=== PATIENT | female | born 1975 | race Caucasian/White ===

== ENCOUNTER → 2020-09-10 14:12 | Outpatient (BNVA) | payer OTHER, SELFPAY | PROVIDERS: PCP Internal Medicine; Visit Provider Surgery | DX: L73.9 Follicular disorder, unspecified (principal); Z91.89 Other specified personal risk factors, not elsewhere classified | CPT/HCPCS: 99202 ==

== ENCOUNTER → 2020-09-16 14:21 | Outpatient (BNVA) | payer OTHER, SELFPAY | PROVIDERS: PCP Internal Medicine; Visit Provider Surgery | DX: L73.9 Follicular disorder, unspecified (principal); Z91.89 Other specified personal risk factors, not elsewhere classified | CPT/HCPCS: 99212 ==

== ENCOUNTER → 2020-10-27 13:20 | Outpatient (BNVA) | payer OTHER, SELFPAY | PROVIDERS: PCP Internal Medicine; Referring Provider Internal Medicine; Visit Provider Surgery | DX: Z91.89 Other specified personal risk factors, not elsewhere classified (principal) | CPT/HCPCS: 99212 ==

== ENCOUNTER 2020-11-09 14:23 | Outpatient (REF) | payer OTHER, SELFPAY ==
[2020-11-09 16:56] LABS: MANUAL DIFF FLAG NO
[2020-11-09 17:02] LABS: Basophils Absolute Auto 0.1 X10*3/uL (0.0-0.2); Basophils Percent Auto 0.6 % (0-2); Eosinophils Absolute Auto 0.2 X10*3/uL (0.0-0.4); Eosinophils Percent Auto 1.9 % (0-4); Hematocrit 43.3 % (37-47); Hemoglobin 14.4 g/dl (12.0-16.0); Imm Gran Abs Auto 0.05 X10*3/uL (0.00-0.03); Imm Gran Pct Auto 0.5 % (0.0-0.4); Lymphocytes Absolute Auto 2.8 X10*3/uL (1.2-4.9); Mean Corpuscular HGB Conc 33.3 g/dl (31.0-35.0); Mean Corpuscular Hemoglobin 29.5 pg (27.0-33.0); Mean Corpuscular Volume 88.7 fL (80-98); Mean Platelet Volume 8.9 fL (9.4-12.3); Monocytes Absolute Auto 0.5 X10*3/uL (0.1-1.2); Monocytes Percent Auto 5.5 % (2-11); Neutrophils Percent Auto 62.5 % (45-73); Platelet Count 340 X10*3/uL (160-400); Red Blood Count 4.88 X10*6/uL (4.20-5.50); Red Cell Distribution Width 13.2 % (11.0-16.0); White Blood Count 9.6 X10*3/uL (4.8-10.8)
[2020-11-09 17:07] LABS: Creatinine Urine 26.02 mg/dL; Microalbum/Creatinine Ratio Ur 65.3 ug/mg cr
[2020-11-09 17:14] LABS: Estimated Average Glucose 226 mg/dL; Hemoglobin A1c % 9.5 %
[2020-11-09 17:18] LABS: Alanine Aminotransferase 13 U/L (0-31); Albumin Level 4.1 g/dL (3.5-5.0); Alkaline Phosphatase 83 U/L (39-117); Anion Gap 12 (12-20); Aspartate Amino Transferase 17 U/L (5-31); Bilirubin Total 0.7 mg/dL (0.0-1.0); Blood Urea Nitrogen 6 mg/dL (9-16); Calcium 9.4 mg/dL (8.4-10.2); Carbon Dioxide 25 mmol/L (22-29); Chloride 105 mmol/L (96-108); Cholesterol 199 mg/dL; Estimated Glomerular Filt Rate > 60; Glucose Random 126 mg/dL (60-115); HDL Cholesterol 31 mg/dL; LDL Cholesterol Calculated 128 mg/dl; Potassium 4.4 mmol/L (3.3-5.1); Sodium 138 mmol/L (135-145); Total Protein 7.4 g/dL (6.5-8.0); Triglycerides 202 mg/dL
[2020-11-09 17:42] LABS: Free T4 (Free Thyroxine) 0.91 ng/dL (0.71-1.85); Thyroid Stimulating Hormone 0.86 uIU/mL (0.32-4.0); Vitamin D 25-OH Total 14.2 ng/mL (>30)
[2020-11-09 17:43] LABS: Folate 10.6 ng/mL (> or = 4.0); Vitamin B12 206 pg/mL (200-900)
[2020-11-10 02:42] LABS: CT PCR NOT DETECTED (Not Detect.); NG PCR NOT DETECTED (Not Detect.)
[2020-11-10 08:31] LABS: BV Int Neg Control Negative (Negative); BV Int Pos Control Positive (Positive)
== END 2020-11-09 14:24 | disposition home or self-care (01) ==
LOC: HO.LAB 14:23
PROVIDERS: Absent Provider Surgery; PCP Internal Medicine; Visit Provider Advanced Practice Midwife
DX: Z01.419 Encounter for gynecological examination (general) (routine) without abnormal findings (principal); Z11.3 Encounter for screening for infections with a predominantly sexual mode of transmission; R10.2 Pelvic and perineal pain; L73.2 Hidradenitis suppurativa; E11.65 Type 2 diabetes mellitus with hyperglycemia; I10 Essential (primary) hypertension; E78.00 Pure hypercholesterolemia, unspecified; N64.4 Mastodynia; G89.29 Other chronic pain
CPT/HCPCS: 36415; 80053; 80061; 82043; 82306; 82607; 82746; 83036; 84439; 84443; 85025; 87071; 87205; 87480; 87491; 87510; 87591; 87660

== ENCOUNTER 2020-11-18 15:03 | Outpatient (REF) | payer OTHER, SELFPAY | END 2020-11-18 15:04 | disposition home or self-care (01) | LOC: HO.MRI 15:03 | PROVIDERS: PCP Internal Medicine; Visit Provider Surgery | DX: Z13.89 Encounter for screening for other disorder (principal) ==

== ENCOUNTER 2021-08-25 13:56 | Outpatient (REF) | payer OTHER, SELFPAY ==
--- NOTE | ~2021-08-25 | MM_ITS ---
EXAMINATION: MM SCREENING DIGITAL BREAST TOMOSYNTHESIS, BILATERAL CLINICAL INFORMATION: Screening. Asymptomatic. The lifetime risk of breast cancer based on the Tyrer-Cuzick Model is 21.5%. Additional annual screening with breast MRI may be of benefit in women with a score of 20% or greater. COMPARISON: Mammography: None TECHNIQUE: Digital breast tomosynthesis is performed in both the craniocaudal and mediolateral oblique views along with computer-aided detection (CAD). Synthesized 2D images are generated from the tomosynthesis. FINDINGS: The breasts are almost entirely fatty (ACR BI-RADS breast composition Category a). There are no significant masses, abnormal calcifications, or other abnormalities. A few intramammary lymph nodes are seen within the left breast. MM/MM tomosynthesis screening BI IMPRESSION: No mammographic evidence of malignancy. ASSESSMENT: BI-RADS 1: Negative RECOMMENDATION: Routine annual mammography screening. This patient's information was entered into a reminder system with a target due date for their next mammogram.
== END 2021-08-25 13:57 | disposition home or self-care (01) ==
LOC: HO.MAMMO 13:56
PROVIDERS: PCP Internal Medicine; Visit Provider Internal Medicine
DX: Z12.31 Encounter for screening mammogram for malignant neoplasm of breast (principal)
CPT/HCPCS: 77063; 77067

== ENCOUNTER 2021-12-30 13:56 | Outpatient (REF) | payer OTHER, SELFPAY ==
[2021-12-30 16:42] LABS: MANUAL DIFF FLAG NO
[2021-12-30 16:45] LABS: Basophils Percent Auto 0.4 % (0-2); Eosinophils Absolute Auto 0.1 X10*3/uL (0.0-0.4); Eosinophils Percent Auto 1.3 % (0-4); Hematocrit 42.6 % (37.0-47.0); Hemoglobin 14.2 g/dl (12.0-16.0); Imm Gran Abs Auto 0.05 X10*3/uL (0.00-0.03); Imm Gran Pct Auto 0.5 % (0.0-0.4); Lymphocytes Absolute Auto 2.8 X10*3/uL (1.2-4.9); Lymphocytes Percent Auto 28.9 % (20-40); Mean Corpuscular HGB Conc 33.3 g/dl (31.0-35.0); Mean Corpuscular Hemoglobin 29.2 pg (27.0-33.0); Mean Corpuscular Volume 87.5 fL (80.0-98.0); Mean Platelet Volume 8.6 fL (9.4-12.3); Monocytes Absolute Auto 0.4 X10*3/uL (0.1-1.2); Monocytes Percent Auto 3.8 % (2-11); Neutrophils Absolute Auto 6.4 x10*3/uL (2.0-8.3); Neutrophils Percent Auto 65.1 % (45-73); Platelet Count 338 X10*3/uL (160-400); Red Blood Count 4.87 X10*6/uL (4.20-5.50); Red Cell Distribution Width 13.1 % (11.0-16.0); White Blood Count 9.8 X10*3/uL (4.8-10.8)
[2021-12-30 17:12] LABS: Estimated Average Glucose 134 mg/dL; Hemoglobin A1c % 6.3 %
[2021-12-30 17:15] LABS: Creatinine Urine 16.58 mg/dL; Microalbumin Urine < 5.0 mg/L
[2021-12-30 17:17] LABS: Alanine Aminotransferase 14 U/L (0-31); Albumin Level 4.3 g/dL (3.5-5.0); Alkaline Phosphatase 67 U/L (39-117); Anion Gap 12 (12-20); Aspartate Amino Transferase 13 U/L (5-31); Bilirubin Total 0.4 mg/dL (0.0-1.0); Blood Urea Nitrogen 8 mg/dL (9-16); Calcium 9.6 mg/dL (8.4-10.2); Carbon Dioxide 26 mmol/L (22-29); Chloride 100 mmol/L (96-108); Cholesterol 219 mg/dL; Estimated Glomerular Filt Rate > 60; Glucose Random 138 mg/dL (60-115); HDL Cholesterol 33 mg/dL; LDL Cholesterol Calculated 145 mg/dl; Potassium 4.4 mmol/L (3.3-5.1); Sodium 134 mmol/L (135-145); Total Protein 7.8 g/dL (6.5-8.0); Triglycerides 206 mg/dL
[2021-12-30 17:37] LABS: Free T4 (Free Thyroxine) 0.92 ng/dL (0.71-1.85); Thyroid Stimulating Hormone 1.01 uIU/mL (0.32-4.0); Vitamin D 25-OH Total 36.9 ng/mL (>30)
[2021-12-30 17:49] LABS: Folate 4.5 ng/mL (> or = 4.0); Vitamin B12 594 pg/mL (200-900)
== END 2021-12-30 13:57 | disposition home or self-care (01) ==
LOC: HO.HMGCLDS 13:56
PROVIDERS: PCP Internal Medicine; Visit Provider Internal Medicine
DX: E11.65 Type 2 diabetes mellitus with hyperglycemia (principal); E78.00 Pure hypercholesterolemia, unspecified; I10 Essential (primary) hypertension
CPT/HCPCS: 36415; 80053; 80061; 82043; 82306; 82607; 82746; 83036; 84439; 84443; 85025

== ENCOUNTER 2022-02-01 16:17 | Outpatient (REF) | payer OTHER, SELFPAY ==
[2022-02-02 08:36] LABS: BV Int Neg Control Negative (Negative); BV Int Pos Control Positive (Positive)
[2022-02-04 22:37] LABS: HPV mRNA E6/E7 rflx Not Detected (Not Detected)
== END 2022-02-01 16:18 | disposition home or self-care (01) ==
LOC: HO.LAB 16:17
PROVIDERS: Visit Provider Advanced Practice Midwife
DX: Z01.419 Encounter for gynecological examination (general) (routine) without abnormal findings (principal); N76.0 Acute vaginitis; R10.2 Pelvic and perineal pain; E28.2 Polycystic ovarian syndrome; R10.819 Abdominal tenderness, unspecified site
CPT/HCPCS: 81003; 87480; 87510; 87624; 87660; 88142

== ENCOUNTER 2022-06-15 14:49 | Outpatient (REF) | payer OTHER, SELFPAY ==
[2022-06-16 09:21] LABS: BV Int Neg Control Negative (Negative)
[2022-06-16 09:22] LABS: BV Int Pos Control Positive (Positive)
== END 2022-06-15 14:50 | disposition home or self-care (01) ==
LOC: HO.LNP 14:49
PROVIDERS: PCP Internal Medicine; Visit Provider Advanced Practice Midwife
DX: N76.0 Acute vaginitis (principal); R10.2 Pelvic and perineal pain; N60.02 Solitary cyst of left breast; L28.0 Lichen simplex chronicus
CPT/HCPCS: 87480; 87510; 87660; 99212

== ENCOUNTER 2022-06-27 15:58 | Outpatient (REF) | payer OTHER, SELFPAY ==
--- NOTE | ~2022-06-27 | US_ITS ---
EXAMINATION: US PELVIS CLINICAL INFORMATION: Pelvic and perineal pain. COMPARISON: None TECHNIQUE: Ultrasound of the pelvis is performed using both transabdominal and transvaginal transducers along with Doppler. Transvaginal imaging is performed due to inadequate visualization transabdominally. FINDINGS: Uterus: The uterus is anteverted and measures 7.6 x 2.6 x 4.6 cm. The double wall endometrial thickness is 7 mm. The uterus is smooth in contour and has normal myometrial echogenicity. No visible fibroid. Nabothian cysts are present in the cervix. Adnexa: Both ovaries are visualized. There is normal color flow to the adnexa. There is no ovarian torsion. There is no pelvic ascites or fluid collection. Right ovary measures 4.0 x 2.1 x 2.7 cm for a volume of 11.9 mL. Left ovary measures 4.9 x 1.7 x 2.6 cm for a volume of 11.3 mL which includes a small 1.5 cm cyst. US/US pelvic and transvaginal IMPRESSION: No significant abnormality is seen. A cause for the patient's pelvic pain has not been found.
== END 2022-06-27 15:59 | disposition home or self-care (01) ==
LOC: HO.US 15:58
PROVIDERS: Visit Provider Advanced Practice Midwife
DX: R10.2 Pelvic and perineal pain (principal); E28.2 Polycystic ovarian syndrome
CPT/HCPCS: 76830; 76856

== ENCOUNTER 2022-06-30 14:44 | Outpatient (REF) | payer OTHER, SELFPAY ==
--- NOTE | ~2022-06-30 | MM_ITS ---
EXAMINATION: MM DIAGNOSTIC DIGITAL BREAST TOMOSYNTHESIS, BILATERAL US DIAGNOSTIC ULTRASOUND BREAST, LEFT CLINICAL INFORMATION: Probable concern noted by patient superficial subareolar left breast. The lifetime risk of breast cancer based on the Tyrer-Cuzick Model is 23%. COMPARISON: Mammography: 08/25/2021 (baseline) TECHNIQUE: Digital breast tomosynthesis is performed in both the craniocaudal and mediolateral oblique views along with computer-aided detection (CAD). Synthesized 2D images are generated from the tomosynthesis. Additional left CC and left MLO views are obtained. Ultrasound left breast is targeted to the area of clinical concern subareolar and periareolar breast using grayscale imaging and color Doppler without and with harmonics. Comparison imaging right breast also performed at time of imaging. FINDINGS: There are scattered areas of fibroglandular density (ACR BI-RADS breast composition Category b). Parenchymal pattern is similar to the baseline exam. There is no interval mass or architectural abnormality, duct ectasia, or abnormal calcifications. No skin thickening or coarsening of the Casey's ligaments. No mammographic correlate for patient's palpable concern. The axilla are unremarkable. Ultrasound left breast demonstrates no cystic or solid mass, architectural abnormality, or focal duct ectasia. No hyperemia. No intradermal lesion. Comparison imaging right breast shows the nipples to be symmetric. Results are discussed with the patient at time of visit. MM/MM tomosynthesis diagnostic BI IMPRESSION: 1. No mammographic evidence of malignancy. 2. Unremarkable targeted left breast ultrasound. ASSESSMENT: BI-RADS 1: Negative RECOMMENDATION: 1. Patient should be managed based on the clinical impression. If clinically indicated, further evaluation may be considered with surgical consult. Decision to proceed with biopsy should be based on clinical grounds and degree of clinical concern. 2. Otherwise, routine annual screening mammography. This patient's information was entered into a reminder system with a target due date for their next mammogram.
== END 2022-06-30 14:45 | disposition home or self-care (01) ==
LOC: HO.MAMMO 14:44
PROVIDERS: PCP Internal Medicine; Visit Provider Advanced Practice Midwife
DX: N60.02 Solitary cyst of left breast (principal)
CPT/HCPCS: 76642; 77062; 77066

== ENCOUNTER 2022-07-19 10:47 | Outpatient (REF) | payer OTHER, SELFPAY | END 2022-07-19 10:48 | disposition home or self-care (01) | LOC: HO.LAB 10:47 | PROVIDERS: PCP Internal Medicine; Visit Provider Advanced Practice Midwife | DX: N90.89 Other specified noninflammatory disorders of vulva and perineum (principal); N94.89 Other specified conditions associated with female genital organs and menstrual cycle; N93.9 Abnormal uterine and vaginal bleeding, unspecified; L28.0 Lichen simplex chronicus; R10.2 Pelvic and perineal pain | CPT/HCPCS: 56605; 88305; 88312 ==

== ENCOUNTER → 2022-08-17 15:07 | Outpatient (BNVA) | payer OTHER, SELFPAY | PROVIDERS: PCP Internal Medicine; Visit Provider Advanced Practice Midwife | DX: N94.89 Other specified conditions associated with female genital organs and menstrual cycle (principal); Z71.2 Person consulting for explanation of examination or test findings | CPT/HCPCS: 99212 ==

== ENCOUNTER 2022-11-03 14:57 | Outpatient (REF) | payer OTHER, SELFPAY ==
--- NOTE | ~2022-11-03 | US_ITS ---
EXAMINATION: US ABDOMEN COMPLETE CLINICAL INFORMATION: Right upper quadrant pain, elevated LFTs. COMPARISON: Ultrasound abdomen complete 11/25/2015. CT abdomen and pelvis with contrast 08/09/2014. TECHNIQUE: Real-time imaging of the abdominal viscera. Technically suboptimal study secondary to body habitus. FINDINGS: Suboptimal exam due to patient body habitus. PANCREAS: The pancreas is homogeneous in echotexture without any focal lesion. ABDOMINAL AORTA: There is mild atherosclerosis. No aneurysmal dilatation. INFERIOR VENA CAVA: Visualized portions are normal. LIVER: The liver is enlarged. The liver contour is normal. There is diffuse increased echogenicity. No focal hepatic lesion. There is no intrahepatic biliary duct dilatation seen. The right lobe measures 19.9 cm and the left lobe measures 17.7 cm in length. GALLBLADDER: The gallbladder is physiologically distended without evidence of stones, sludge, polyps, wall thickening or pericholecystic fluid. The gallbladder wall thickness measures 0.21 cm COMMON BILE DUCT: Normal in caliber measuring 0.3 cm in diameter. RIGHT KIDNEY: Normal. No hydronephrosis. No renal calculi or focal parenchymal lesions. The kidney measures 11.6 cm in maximum dimension. LEFT KIDNEY: Normal. No hydronephrosis. No renal calculi or focal parenchymal lesions. The kidney measures 12.8 cm in maximum dimension. SPLEEN: Normal. The spleen measures 12.1 cm in maximum dimension. FREE FLUID: None. US/US abdomen complete IMPRESSION: 1. Diffuse echogenic liver without focal lesion. 2. Mild atherosclerosis of the abdominal aorta without aneurysmal dilatation. 3. Rest of the abdominal ultrasound is unremarkable.
[2022-11-03 16:45] LABS: MANUAL DIFF FLAG NO
[2022-11-03 16:49] LABS: Basophils Absolute Auto 0.1 X10*3/uL (0.0-0.2); Basophils Percent Auto 0.6 % (0-2); Eosinophils Absolute Auto 0.2 X10*3/uL (0.0-0.4); Eosinophils Percent Auto 1.8 % (0-4); Hematocrit 41.8 % (37.0-47.0); Hemoglobin 14.1 g/dl (12.0-16.0); Imm Gran Abs Auto 0.03 X10*3/uL (0.00-0.03); Imm Gran Pct Auto 0.3 % (0.0-0.4); Lymphocytes Absolute Auto 3.7 X10*3/uL (1.2-4.9); Mean Corpuscular HGB Conc 33.7 g/dl (31.0-35.0); Mean Corpuscular Hemoglobin 30.1 pg (27.0-33.0); Mean Corpuscular Volume 89.3 fL (80.0-98.0); Mean Platelet Volume 8.7 fL (9.4-12.3); Monocytes Absolute Auto 0.6 X10*3/uL (0.1-1.2); Monocytes Percent Auto 5.3 % (2-11); Neutrophils Absolute Auto 6.6 x10*3/uL (2.0-8.3); Platelet Count 341 X10*3/uL (160-400); Red Blood Count 4.68 X10*6/uL (4.20-5.50); Red Cell Distribution Width 12.8 % (11.0-16.0); White Blood Count 11.2 X10*3/uL (4.8-10.8)
[2022-11-03 17:10] LABS: Creatinine Urine 90.05 mg/dL; Microalbum/Creatinine Ratio Ur 12.2 ug/mg cr
[2022-11-03 17:19] LABS: Alanine Aminotransferase 14 U/L (0-31); Albumin Level 4.2 g/dL (3.5-5.0); Alkaline Phosphatase 70 U/L (39-117); Anion Gap 12 (12-20); Aspartate Amino Transferase 12 U/L (5-31); Bilirubin Total 0.4 mg/dL (0.0-1.0); Blood Urea Nitrogen 5 mg/dL (9-16); Calcium 9.7 mg/dL (8.4-10.2); Carbon Dioxide 24 mmol/L (22-29); Chloride 105 mmol/L (96-108); Cholesterol 164 mg/dL; Estimated Glomerular Filt Rate > 60; Glucose Random 81 mg/dL (60-115); HDL Cholesterol 35 mg/dL; LDL Cholesterol Calculated 85 mg/dl; Potassium 4.3 mmol/L (3.3-5.1); Sodium 137 mmol/L (135-145); Total Protein 7.7 g/dL (6.5-8.0); Triglycerides 220 mg/dL
[2022-11-03 17:49] LABS: Free T4 (Free Thyroxine) 0.93 ng/dL (0.71-1.85); Thyroid Stimulating Hormone 1.14 uIU/mL (0.32-4.0); Vitamin B12 938 pg/mL (200-900); Vitamin D 25-OH Total 32.5 ng/mL (>30)
== END 2022-11-03 14:58 | disposition home or self-care (01) ==
LOC: HO.HMGCX 14:57
PROVIDERS: PCP Internal Medicine; Visit Provider Internal Medicine
DX: E11.65 Type 2 diabetes mellitus with hyperglycemia (principal); E78.00 Pure hypercholesterolemia, unspecified; R10.11 Right upper quadrant pain; R79.89 Other specified abnormal findings of blood chemistry
CPT/HCPCS: 36415; 76700; 80053; 80061; 82043; 82306; 82607; 82746; 84439; 84443; 85025

== ENCOUNTER 2023-01-20 10:36 | Outpatient (AMB) | payer OTHER, SELFPAY ==
[2023-01-20 10:44] VITALS: BP 157/95; PULSE 90; BMI 45.2
--- NOTE | 2023-01-20 10:44 | MHC.OFFVIS ---
Intake Vital Signs 01/20/23 10:44 Height 5 ft 2 in Weight 247 lb 5.738 oz BMI 45.2 BP 157/95 H Blood Pressure Location Lt brachial Position Sitting Pulse 90 Intake Visit Reasons: Colonoscopy Screening Intake Note: Neema presents in office as a new.patient for a colonoscopy screening. PT CC: pt reports having abdominal pain, bloating , diarrhea ,2nd colo pt denies any other GI Issues Pest Locator Required: No Accompanied by: Self / Same As Patient Allergies simvastatin Allergy (Unknown, Verified 01/20/23 10:44) Unknown sitagliptin [Januvia] Allergy (Unknown, Verified 01/20/23 10:44) nausea, vomits, cramps verapamil Allergy (Unknown, Verified 01/20/23 10:44) shortness of breath pioglitazone Adverse Reaction (Intermediate, Verified 01/20/23 10:44) Abdominal Pain HPI Colonoscopy Screening HPI Details 47 year old? female with past medical history of migraines, depression, GERD, hypertension, hypercholesteremia, asthma, obesity, diabetes is here today for pre colonoscopy screening.? Patient was sent to us by her PCP.? Patient had colonoscopy in March of 2017 for abdominal pain and diarrhea. Patient was found to have a tubular adenoma.? Denies history of difficulty with sedation or anesthesia in the past.? Negative for history of sleep apnea.? Patient reports postprandial abdominal pain and discomfort. Patient reports frequent loose stools and feeling like she does not empty completely. Patient has been placed on pantoprazole and has been taking it for the last couple months. Reports that she continues to have acid reflux with dyspepsia, without dysphagia or odynophagia. Patient also reports epigastric pain and postprandial abdominal bloating [facility] Medical History Abdominal tenderness Acute bronchitis Acute vaginitis Anti-phospholipid syndrome Asthma At high risk for breast cancer BRCA gene mutation negative Burning sensation of vulva Fibromyalgia Fibromyalgia GERD (gastroesophageal reflux disease) Hidradenitis suppurativa Hypercholesterolemia Hypertension Migraine Morbid obesity Obesity PCOS (polycystic ovarian syndrome) Pelvic pain in female Smoking Type 2 diabetes mellitus with hyperglycemia Vitamin B12 deficiency Vitamin D deficiency Vulvar pain Surgical History H/O colonoscopy H/O endoscopy H/O oral surgery Family History Mother Cervical cancer Maternal Aunt Breast cancer Cervical cancer Maternal Aunt Breast cancer Cervical cancer Maternal Aunt Cervical cancer Maternal Aunt Cervical cancer Social History Housing: Apartment Housing Other:: 2019 Alcohol intake: never Patient Tobacco Use Status: Current everyday Tobacco user Tobacco use type: Cigarette Cigarette Packs Per Day: 2 e-Cigarette/Vaping Use: Never Used Second Hand Smoke Exposure: No service: No Cognitive needs: No Hearing needs: No Vision needs: Yes Review of Systems Const Denies weight gain and Denies weight loss ENT Reports no additional complaints, Denies dysphagia and Denies odynophagia Card Reports no additional complaints Resp Reports no additional complaints GI Reports abdominal pain, Denies belching, Denies melena, Reports bloating, Reports constipation, Denies dysphagia, Denies excessive flatus, Denies dyspepsia, Reports heartburn, Denies diarrhea, Reports loose stools, Denies nausea, Denies odynophagia and Denies vomiting Reports no additional complaints Musc Reports no additional complaints Neuro Reports no additional complaints Psych Reports no additional complaints Endo Reports no additional complaints Physical Exam Vital Signs: Last Vital Signs Pulse 90 01/20/23 10:44 BP 157/95 H 01/20/23 10:44 BMI result Body Mass Index 45.2 Const General: no acute distress and well developed Nutritional Appearance: obese Orientation/consciousness: patient oriented x3 HEENT Head: Yes normal to inspection, Yes normocephalic and Yes atraumatic Face and sinus: Yes normal facial exam Mouth: Normal oral and palatal mucosa present Throat: Yes posterior oropharynx normal, Yes tonsils normal and Yes uvula midline Eyes General: appearance normal, both eyes and all related structures Neck Neck: Yes normal visual inspection, Yes full ROM and Yes trachea midline Thyroid: Thyroid normal Resp Effort & Inspection: normal respiratory effort, able to speak in complete sentences, no tracheal deviation and symmetric chest movement Auscultation: clear to auscultation bilaterally Cardio Rate: regular rate Heart sounds: S1 normal heart sound present and S2 normal heart sound present GI Inspection: Yes normal to inspection, No distended and Yes obesity Palpation (GI): Soft to palpation, not firm, nontender and No hepatosplenomegaly present Auscultation: normal bowel sounds General: Yes no CVA tenderness Back/Spine/Pelvis Back: no CVA tenderness Skin General skin exam: elasticity normal, turgor normal and dry skin Neuro General: patient oriented x3 Psych Appearance: grossly normal Mental Status: mental status grossly normal Speech and movement: Normal speech and movement present Results Reviewed Results Reviewed: Abdominal ultrasound November 2022 FINDINGS: Suboptimal exam due to patient body habitus. PANCREAS: The pancreas is homogeneous in echotexture without any focal lesion. ABDOMINAL AORTA: There is mild atherosclerosis. No aneurysmal dilatation. INFERIOR VENA CAVA: Visualized portions are normal. LIVER: The liver is enlarged. The liver contour is normal. There is diffuse increased echogenicity. No focal hepatic lesion. There is no intrahepatic biliary duct dilatation seen. The right lobe measures 19.9 cm and the left lobe measures 17.7 cm in length. GALLBLADDER:? The gallbladder is physiologically distended without evidence of stones, sludge, polyps, wall thickening or pericholecystic fluid. The gallbladder wall thickness measures 0.21 cm COMMON BILE DUCT: Normal in caliber measuring 0.3 cm in diameter. RIGHT KIDNEY: Normal. No hydronephrosis. No renal calculi or focal parenchymal lesions. The kidney measures 11.6 cm in maximum dimension. LEFT KIDNEY: Normal. No hydronephrosis. No renal calculi or focal parenchymal lesions. The kidney measures 12.8 cm in maximum dimension. SPLEEN: Normal. The spleen measures 12.1 cm in maximum dimension. FREE FLUID: None. US/US abdomen complete IMPRESSION: 1.? Diffuse echogenic liver without focal lesion. ? 2.? Mild atherosclerosis of the abdominal aorta without aneurysmal dilatation. ? 3.? Rest of the abdominal ultrasound is unremarkable. ? Assessment & Plan Assessment & Plan (1) Colon cancer screening: Code(s): Z12.11 - Encounter for screening for malignant neoplasm of colon Plan: Patient denies any cardiac or respiratory symptoms.? Denies any issues with anesthesia in the past.? Denies any history of sleep apnea.? No history infectious diseases in the past or present.? Not on any anticoagulation therapy.? ? Patient denies melena, hematochezia, unintentional weight loss or ribbon like stools.? Patient reports abdominal pain and discomfort. Postprandial abdominal bloating and loose stools. Epigastric pain. (2) RUQ abdominal pain: Code(s): R10.11 - Right upper quadrant pain Plan: Patient reports right upper quadrant pain. Negative exam. Labs from November reviewed and normal. Normal ultrasound from November of 2022. Hepatic steatosis (3) GERD (gastroesophageal reflux disease): Code(s): K21.9 - Gastro-esophageal reflux disease without esophagitis Qualifiers: Esophagitis presence: esophagitis presence not specified Qualified Code(s): K21.9 - Gastro-esophageal reflux disease without esophagitis Plan: Patient continues to have epigastric pain. Will stop pantoprazole and start patient on lansoprazole. Will check transglutaminase, H pylori, lipase, rule out pancreatic insufficiency (4) IBS (irritable bowel syndrome): Code(s): K58.9 - Irritable bowel syndrome without diarrhea Qualifiers: Irritable bowel syndrome type: with both diarrhea and constipation Qualified Code(s): K58.2 - Mixed irritable bowel syndrome Plan: Low FODMAP discussed with patient. List of food recommended as well as list of food to avoid given to patient. I will see patient in 5 weeks to discuss going for colonoscopy and upper endoscopy. Patient is agreeable to this plan and verbalizes understanding of instructions. She was given the opportunity to ask questions all questions answered. Thank you for allowing me to participate in her care Orders: Orders Pancreatic Elastase-1 Today R10.9 - Unspecified abdominal pain C Reactive Protein Today K58.9 - Irritable bowel syndrome without diarrhea Lipase Today R10.9 - Unspecified abdominal pain Transglutaminase IgA Today R10.9 - Unspecified abdominal pain Transglutaminase Ab IgG Today R10.9 - Unspecified abdominal pain H pylori Ag Stool Today K21.9 - Gastro-esophageal reflux disease without esophagitis Medications: New lansoprazole 30 mg PO DAILY 30 caps 3RF K21.9 - Gastro-esophageal reflux disease without esophagitis methylcellulose (laxative) (Citrucel) take it with full glass of water 500 mg PO DAILY 90 tabs 2RF K59.00 - Constipation, unspecified Discontinued pantoprazole Discontinued Reason: Doctor's Order 40 mg PO DAILY 30 days 90 tabs 1RF K21.9 - Gastro-esophageal reflux disease without esophagitis Coding Level of Care Code New Pt Level 4 (94659) Diagnoses Colon cancer screening Z12.11 RUQ abdominal pain R10.11 GERD (gastroesophageal reflux disease) K21.9 Esophagitis presence: esophagitis presence not specified IBS (irritable bowel syndrome) K58.2 Irritable bowel syndrome type: with both diarrhea and constipation Time Spent (min) 45 Comment 30 minutes spent with patient and additional 15 minutes spent reviewing her records
== END 2023-01-20 11:14 | disposition home or self-care (01) ==
PROVIDERS: PCP Internal Medicine; Visit Provider Nurse Practitioner Family
DX: Z01.818 Encounter for other preprocedural examination (principal); Z12.11 Encounter for screening for malignant neoplasm of colon; R10.11 Right upper quadrant pain; K21.9 Gastro-esophageal reflux disease without esophagitis; K58.2 Mixed irritable bowel syndrome
CPT/HCPCS: 99203

== ENCOUNTER → 2023-01-20 10:36 | Outpatient (BNVA) | payer OTHER, SELFPAY | PROVIDERS: PCP Internal Medicine; Visit Provider Nurse Practitioner Family ==

== ENCOUNTER 2023-02-22 09:55 | Outpatient (REF) | payer OTHER, SELFPAY ==
[2023-02-22 13:44] LABS: C Reactive Protein 0.62 mg/dL (< or = 0.50); Lipase 13 U/L (8-78)
[2023-02-28 10:34] LABS: Transglutaminase Ab IgG <1.0 U/mL; Transglutaminase IgA <1.0 U/mL
== END 2023-02-22 09:56 | disposition home or self-care (01) ==
LOC: HO.HMGCLDS 09:55
PROVIDERS: PCP Internal Medicine; Visit Provider Nurse Practitioner Family
DX: R10.9 Unspecified abdominal pain (principal); K58.9 Irritable bowel syndrome, unspecified
CPT/HCPCS: 36415; 83690; 86140; 86364

== ENCOUNTER 2023-02-23 09:35 | Outpatient (REF) | payer OTHER, SELFPAY ==
[2023-03-03 23:29] LABS: Pancreatic Elastase-1 >500 mcg/g
== END 2023-02-23 09:36 | disposition home or self-care (01) ==
LOC: HO.HMGCLNP 09:35
PROVIDERS: Visit Provider Nurse Practitioner Family
DX: R10.9 Unspecified abdominal pain (principal); K21.9 Gastro-esophageal reflux disease without esophagitis
CPT/HCPCS: 82656; 87338

== ENCOUNTER 2023-03-15 13:23 | Day surgery (SDC) | payer OTHER, SELFPAY ==
[2023-03-10 08:11] VITALS: BMI 46.3
--- NOTE | 2023-03-14 10:48 | P.CONAN_ITS ---
HPI - Anesthesia Eval Consult details Narrative: 47yo F for Upper Endoscopy and Colonoscopy [facility] Active Problems Active Problems: All Active Problems (Updated 01/20/23 @ 13:57 by Concepcion Altman [facility]) Migraine (Acute) RUQ abdominal pain (Acute) Plantar fasciitis (Acute) Burning sensation of vulva (Acute) Oral candidiasis (Acute) Colon cancer screening (Acute) COVID-19 virus infection (Acute) Recurrent major depression (Acute) Vaginal pain (Acute) Myalgia (Acute) Folliculitis (Acute) Tobacco abuse (Acute) GERD (gastroesophageal reflux disease) (Acute) Abscess of thigh (Acute) Asthma (Acute) Hypercholesterolemia (Acute) Hypertension (Acute) Obesity (Acute) Type 2 diabetes mellitus with hyperglycemia (Acute) Past Medical History Medical History Abdominal tenderness Acute bronchitis Acute vaginitis Anti-phospholipid syndrome Asthma At high risk for breast cancer BRCA gene mutation negative Burning sensation of vulva Fibromyalgia Fibromyalgia GERD (gastroesophageal reflux disease) Hidradenitis suppurativa Hypercholesterolemia Hypertension Migraine Morbid obesity Obesity PCOS (polycystic ovarian syndrome) Pelvic pain in female Smoking Type 2 diabetes mellitus with hyperglycemia Vitamin B12 deficiency Vitamin D deficiency Vulvar pain Family History Family History Mother Cervical cancer Maternal Aunt Breast cancer Cervical cancer Maternal Aunt Breast cancer Cervical cancer Maternal Aunt Cervical cancer Maternal Aunt Cervical cancer Surgical History Surgical History H/O colonoscopy H/O endoscopy H/O oral surgery Social History Social History Housing: Apartment Housing Other:: 2019 Alcohol intake: never Patient Tobacco Use Status: Current everyday Tobacco user Tobacco use type: Cigarette Cigarette Packs Per Day: 2 e-Cigarette/Vaping Use: Never Used Second Hand Smoke Exposure: No service: No Cognitive needs: No Hearing needs: No Vision needs: Yes Meds Allergies Allergy/AdvReac Type Severity Reaction Status Date / Time simvastatin Allergy Unknown Unknown Verified 01/20/23 10:44 sitagliptin [Januvia] Allergy Unknown nausea, Verified 01/20/23 10:44 vomits, cramps verapamil Allergy Unknown shortness Verified 01/20/23 10:44 of breath pioglitazone AdvReac Intermediate Abdominal Verified 01/20/23 10:44 Pain Home Medications Medication Instructions Recorded Confirmed Last Taken Type cinnamon bark 500 mg capsule 500 mg PO DAILY 08/17/22 10/24/22 Unknown History (Cinnamon) Exam Exam Date and Time: March 14, 2023 1048 Height,Weight and Vital Signs: Height 5 ft 2 in Weight 114.759 kg Pertinent Lab Results Pertinent Lab Results: Laboratory Tests 11/03/22 15:06 WBC 11.2 H Hgb 14.1 Hct 41.8 Plt Count 341 Sodium 137 Potassium 4.3 Chloride 105 Carbon Dioxide 24 BUN 5 L Creatinine 0.69 Assessment and Plan Assessment Anesthesia Assessment: Chart Reviewed
--- NOTE | 2023-03-15 13:43 | HO.ANESPROP2 ---
[facility] Active Problems Active Problems: All Active Problems (Updated 03/14/23 @ 10:58 by Lissette Godwin RN) RUQ abdominal pain (Acute) Plantar fasciitis (Acute) Oral candidiasis (Acute) Colon cancer screening (Acute) COVID-19 virus infection (Acute) Recurrent major depression (Acute) Vaginal pain (Acute) Myalgia (Acute) Folliculitis (Acute) Tobacco abuse (Acute) Abscess of thigh (Acute) Migraine (Acute) Burning sensation of vulva (Acute) GERD (gastroesophageal reflux disease) (Acute) Asthma (Acute) Hypercholesterolemia (Acute) Hypertension (Acute) Obesity (Acute) Type 2 diabetes mellitus with hyperglycemia (Acute) Past Medical History Medical History Burning sensation of vulva Vulvar pain Hidradenitis suppurativa Acute bronchitis BRCA gene mutation negative Abdominal tenderness Acute vaginitis Smoking Morbid obesity Fibromyalgia Pelvic pain in female At high risk for breast cancer GERD (gastroesophageal reflux disease) Migraine Asthma Vitamin B12 deficiency Vitamin D deficiency Anti-phospholipid syndrome PCOS (polycystic ovarian syndrome) Hypercholesterolemia Hypertension Type 2 diabetes mellitus with hyperglycemia Family History Family History Mother Cervical cancer Maternal Aunt Breast cancer Cervical cancer Maternal Aunt Breast cancer Cervical cancer Maternal Aunt Cervical cancer Maternal Aunt Cervical cancer Family history of problems with anesthesia: No Surgical History Surgical History H/O oral surgery H/O colonoscopy H/O endoscopy History of Problems with Anesthesia: No Social History Social History Housing: Apartment Housing Other:: 2019 Alcohol intake: never Patient Tobacco Use Status: Current everyday Tobacco user Tobacco use type: Cigarette Cigarette Packs Per Day: 2 e-Cigarette/Vaping Use: Never Used Second Hand Smoke Exposure: No Advance Directives: No Advance Directives Information Provided: Yes service: No Cognitive needs: No Hearing needs: No Vision needs: Yes Meds Allergies Allergy/AdvReac Type Severity Reaction Status Date / Time simvastatin Allergy Unknown Unknown Verified 01/20/23 10:44 sitagliptin [Januvia] Allergy Unknown nausea, Verified 01/20/23 10:44 vomits, cramps verapamil Allergy Unknown shortness Verified 01/20/23 10:44 of breath pioglitazone AdvReac Intermediate Abdominal Verified 01/20/23 10:44 Pain Active Medications: Current Medications Albuterol Sulfate (Albuterol Sulfate (0.083%) 2.5 Mg/3 Ml Vial.Neb) 2.5 mg INHALE ONCE PRN PRN Reason: Shortness of Breath/Wheezing Lactated Ringer's (Lr) 1,000 mls @ 100 mls/hr IVCONT .Q10H [facility] Home Medications Medication Instructions Recorded Confirmed Last Taken Type cinnamon bark 500 mg capsule 500 mg PO DAILY 08/17/22 10/24/22 Unknown History (Cinnamon) Exam Exam Date and Time: March 15, 2023 1343 Height,Weight and Vital Signs: Height 5 ft 2 in Weight 114.759 kg Airway Mallampati Class: II (missing multiple teeth, one tooth bottom left slightly loose) TM Dist: >3cm Neck ROM: Full Heart: rrr Lungs: cta Assessment and Plan Assessment Anesthesia Assessment: Anesthesia Plan Discussed and Chart Reviewed Final Anesthetic Review Family History of Problems with Anesthesia: No History of Problems with Anesthesia: No NPO: Yes ASA Class: III Final Preanesthetic Review: No Changes in Pt Med Stat, Meds/Allgs Chart Reviewed and Consent Obtained/Reviewed Patient Risk: Intermediate Procedure Risk: Intermediate Anesthetic Plan Anesthetic Plan: MAC: Disposition: Standard PACU
--- NOTE | 2023-03-15 14:02 | MHC.SHP ---
Pre-Procedural Eval Section A Date of Service: 03/15/23 Section B Chief Complaint: GERD, Unspecified abdominal pain, Constipation Relevant Family History (Specify if Yes): No Relevant Social History: Tobacco Use Present Medications: see Short Stay Collaborative assessment Medical History: Significant History (Burning sensation of vulva Vulvar pain Hidradenitis suppurativa Acute bronchitis BRCA gene mutation negative Abdominal tenderness Acute vaginitis Smoking Morbid obesity Fibromyalgia Pelvic pain in female At high risk for breast cancer GERD (gastroesophageal reflux disease) Migraine Asthma Vitamin B1) History of Previous Operations: Relevant previous surgery/procedure and date(s) (H/O oral surgery H/O colonoscopy H/O endoscopy) Allergies: Allergies Allergy/AdvReac Type Severity Reaction Status Date / Time simvastatin Allergy Unknown Unknown Verified 01/20/23 10:44 sitagliptin [Januvia] Allergy Unknown nausea, Verified 01/20/23 10:44 vomits, cramps verapamil Allergy Unknown shortness Verified 01/20/23 10:44 of breath pioglitazone AdvReac Intermediate Abdominal Verified 01/20/23 10:44 Pain Review of Systems Sugical H&P ROS: Negative: Constitution, Cardiovascular, Respiratory, Neurological, Psychiatric, Hem-Onc, Allergic/Immunologic, Gastrointestinal, Genitourinary, Musculoskeletal, Integumentary, Endocrine and Eyes/Ears/Nose/Throat Exam Surgical H&P Exam: Normal: HEENT, Normal: Heart, Normal: Lungs, Normal: Extremities, Normal: Abdomen, Normal: Skin and Normal: Neurological Plan Diagnosis/Plan: Unchanged I have reviewed the history and physical and performed a pertinent physical examination on my patient. No changes have occurred unless specified. Time Spent With Patient Time: Total time managing care of this patient today ____ minutes.
[2023-03-15 14:13] VITALS: BMI 43.4
[2023-03-15 14:18] VITALS: BP 152/83; PULSE 96; RESP 20; TEMP 37; O2SAT 98
--- NOTE | 2023-03-15 14:42 | W.PM.OPN ---
Operative Note Operative Note Date of Service: 03/15/23 Narrative: Operative Information Procedure Description: EGD, Colonoscopy Indication: abdominal pain, abn bowel habit, dysphagia Anesthesia: MAC FLEXIBLE TRANSORAL UPPER GASTROINTESTINAL ENDOSCOPY AND COLONOSCOPY PROCEDURE NOTE UPPER ENDOSCOPY Consent: Indications for the procedure and potential complications of bleeding, perforation, reaction to medications and missed diagnosis were discussed with the patient and informed consent was obtained. Instrument: Olympus GIF H 190 J mid size upper endoscope Monitoring: Vital signs and clinical assessment, continuous EKG monitoring, Pulse oximetry, Carbon Dioxide monitoring and blood pressure monitoring were done throughout the procedure. Procedure: The patient was placed in the left lateral decubitis position and pre-procedure medications were administered and a bite block was placed. The endoscope was inserted into the mouth and advanced under direct vision to the third part of duodenum. A careful inspection was made as the upper endoscope was withdrawn including a retroflexed examination of the proximal stomach; Findings and interventions are described below. Findings: Larynx:normal Esophagus: GE junction at 33 cm, diaphragm hiatus at 35 cm, consistent with 2 cm sliding hiatal hernia, mild esophagitis noted and schatzki ring, bx taken from GEJ and distal esophagus . UES and LES dilated to 19 mm with balloon Stomach: Patchy erythema and mosaic pattern. Biopsies were obtained. Grade 2 flap valve on retroflexed examination of the cardia. Pylorus was tight and stretched with 19 mm balloon Duodenum: Mild duodenitis, bx taken Intervention: Biopsies as noted above COLONOSCOPY Instrument: Olympus variable stiffness pediatric scope 190L Colonoscopy Monitoring: Vital signs and clinical assessment, continuous EKG monitoring, Pulse oximetry, Carbon Dioxide monitoring and blood pressure monitoring were done throughout the procedure. Colon withdrawal time was 17 minutes. Procedure: The patient was placed in the left lateral decubitis position and pre-procedure medications were administered. After a digital rectal examination of the ano-rectum, the video colonoscope was inserted into the rectum and advanced through the colon to the cecum/TI. The colonoscope was slowly withdrawn in a retrograde panoramic fashion and the colon mucosa was carefully examined including a retroflexed view of the rectum. Findings and interventions are described below. Procedure Difficulty:easy Findings: Terminal Ileum-normal Cecum:normal Ascending Colon: normal Transverse Colon - x3 sessile polyps 9-11 mm removed with cold snare Descending Colon:normal Sigmoid Colon: x 1 sessile polyp removed with cold snare Rectum: Retroflexion with small internal hemorrhoids, grade I Anorectum - normal Colon preparation: [place] Bowel Preparation Scale Right colon; 1-2 Transverse colon: 2 Left colon; 2 (0 = Unprepared colon segment with mucosa not seen due to solid stool that cannot be cleared. 1 = Portion of mucosa of the colon segment seen, but other areas of the colon segment not well seen due to staining, residual stool and/or opaque liquid. 2 = Minor amount of residual staining, small fragments of stool and/or opaque liquid, but mucosa of colon segment seen well. 3 = Entire mucosa of colon segment seen well with no residual staining, small fragments of stool or opaque liquid) Impression and Post Procedure Diagnosis: Endoscopy Findings: hiatal hernia schatzki ring esophagitis gastritis duodenitis Colonoscopy Findings: polyps internal hemorrhoids Plan: Await Pathology results Repeat Colonoscopy in 1-2 years due to fair right sided prep or earlier if clinically indicated High fiber diet leaflet avoid straining at stool, epsom salts and sitz bath, anusol supps or cream GERD precautions and PPI compliance Above findings were reviewed with the patient and relevant handouts were provided if indicated.
[2023-03-15 15:36] VITALS: BP 109/64; PULSE 103; RESP 16; TEMP 37.2; O2SAT 98
[2023-03-15 15:51] VITALS: BP 144/79; PULSE 92; RESP 20; TEMP 36.2; O2SAT 100
== END 2023-03-15 16:22 | disposition home or self-care (01) ==
PROVIDERS: PCP Internal Medicine; Visit Provider Internal Medicine Gastroenterology
PROC: (CPT 43239; principal; 2023-03-15 14:50)
DX: K29.70 Gastritis, unspecified, without bleeding (principal); K29.80 Duodenitis without bleeding; K20.90 Esophagitis, unspecified without bleeding; K44.9 Diaphragmatic hernia without obstruction or gangrene; K22.2 Esophageal obstruction; Z12.11 Encounter for screening for malignant neoplasm of colon; D12.3 Benign neoplasm of transverse colon; K64.0 First degree hemorrhoids; K21.9 Gastro-esophageal reflux disease without esophagitis; R10.9 Unspecified abdominal pain; R19.4 Change in bowel habit; R13.10 Dysphagia, unspecified; E11.9 Type 2 diabetes mellitus without complications; I10 Essential (primary) hypertension; E78.00 Pure hypercholesterolemia, unspecified; F17.210 Nicotine dependence, cigarettes, uncomplicated; K59.00 Constipation, unspecified; E66.9 Obesity, unspecified; Z68.42 Body mass index [BMI] 45.0-49.9, adult
CPT/HCPCS: 43239; 43249; 45385; 81025; 82947; 88305; 88342; C1726

== ENCOUNTER → 2023-03-15 13:23 | Outpatient (BNV) | payer OTHER, SELFPAY | PROVIDERS: PCP Internal Medicine; Visit Provider Internal Medicine Gastroenterology | DX: R19.4 Change in bowel habit (principal); R13.10 Dysphagia, unspecified; K20.90 Esophagitis, unspecified without bleeding; K22.2 Esophageal obstruction; K29.80 Duodenitis without bleeding; D12.3 Benign neoplasm of transverse colon; D12.5 Benign neoplasm of sigmoid colon; K64.0 First degree hemorrhoids | CPT/HCPCS: 43249; 45385 ==

== ENCOUNTER 2023-04-06 13:14 | Outpatient (AMB) | payer OTHER, SELFPAY ==
[2023-04-06 13:47] VITALS: BP 148/88; PULSE 95; O2SAT 98; BMI 40.9
--- NOTE | 2023-04-06 13:47 | A.OFFVIS_ITS ---
Intake Vital Signs 04/06/23 13:47 Height 5 ft 3 in Weight 231 lb 0.711 oz BMI 40.9 BP 148/88 H Blood Pressure Location Lt brachial Position Sitting Pulse 95 Pulse Source Pulse Oximeter Pulse Oximetry (%) 98 Oxygen Delivery Method Room Air Intake Visit Reasons: 5 week follow up Intake Note: Pt presents to the office today for a 5 week follow up. Pt states she is having diarrhea multiple times a day and has abdominal pain. Pt states she still has trouble with bloating as well. Allergies simvastatin Allergy (Unknown, Verified 04/06/23 13:51) Unknown sitagliptin [Januvia] Allergy (Unknown, Verified 04/06/23 13:51) nausea, vomits, cramps verapamil Allergy (Unknown, Verified 04/06/23 13:51) shortness of breath pioglitazone Adverse Reaction (Intermediate, Verified 04/06/23 13:51) Abdominal Pain HPI 5 week follow up HPI Details LAST VISIT Colon cancer screening Patient denies any cardiac or respiratory symptoms.? Denies any issues with anesthesia in the past.? Denies any history of sleep apnea.? No history infectious diseases in the past or present.? Not on any anticoagulation therapy.? ? Patient denies melena, hematochezia, unintentional weight loss or ribbon like stools.? Patient reports abdominal pain and discomfort. Postprandial abdominal bloating and loose stools. Epigastric pain. RUQ abdominal pain Patient reports right upper quadrant pain. Negative exam. Labs from November reviewed and normal. Normal ultrasound from November of 2022. Hepatic steatosis GERD (gastroesophageal reflux disease) Patient continues to have epigastric pain. Will stop pantoprazole and start patient on lansoprazole. Will check transglutaminase, H pylori, lipase, rule out pancreatic insufficiency IBS (irritable bowel syndrome) Low FODMAP discussed with patient. List of food recommended as well as list of food to avoid given to patient. I will see patient in 5 weeks to discuss going for colonoscopy and upper endoscopy. Patient is agreeable to this plan and verbalizes understanding of instructions. She was given the opportunity to ask questions all questions answered. ? Thank you for allowing me to participate in her care Plan Orders Orders Pancreatic Elastase-1 Today R10.9 - Unspecified abdominal pain C Reactive Protein Today K58.9 - Irritable bowel syndrome without diarrhea Lipase Today R10.9 - Unspecified abdominal pain Transglutaminase IgA Today R10.9 - Unspecified abdominal pain Transglutaminase Ab IgG Today R10.9 - Unspecified abdominal pain H pylori Ag Stool Today K21.9 - Gastro-esophageal reflux disease without esophagitis Medications New lansoprazole 30 mg PO DAILY 30 caps 3RF K21.9 - Gastro-esophageal reflux disease without esophagitis methylcellulose (laxative) (Citrucel) take it with full glass of water 500 mg PO DAILY 90 tabs 2RF K59.00 - Constipation, unspecified Discontinued pantoprazole Discontinued Reason: Doctor's Order 40 mg PO DAILY 30 days 90 tabs 1RF K21.9 - Gastro-esophageal reflux disease without esophagitis UPPER ENDOSCOPY AND COLONOSCOPY Findings: Larynx:normal Esophagus: GE junction at 33 cm, diaphragm hiatus at 35 cm, consistent with 2 cm sliding hiatal hernia, mild esophagitis noted and schatzki ring, bx taken from GEJ and distal esophagus . UES and LES dilated to 19 mm with balloon Stomach: Patchy erythema and mosaic pattern. Biopsies were obtained. Grade 2 flap valve on retroflexed examination of the cardia. Pylorus was tight and stretched with 19 mm balloon Duodenum: Mild duodenitis, bx taken Intervention: Biopsies as noted above Findings: Terminal Ileum-normal Cecum:normal Ascending Colon: normal Transverse Colon - x3 sessile polyps 9-11 mm removed with cold snare Descending Colon:normal Sigmoid Colon: x 1 sessile polyp removed with cold snare Rectum: Retroflexion with small internal hemorrhoids, grade I Anorectum - normal Colon preparation: [place] Bowel Preparation Scale Right colon; 1-2 Transverse colon: 2 Left colon; 2 (0 = Unprepared colon segment with mucos a not seen due to solid stool that cannot be cleared. 1 = Portion of mucosa of the colon segme nt seen, but other areas of the colon segment not well seen due to staining, residual stool and/or opaque liquid. 2 = Minor amount of residual staining, s mall fragments of stool and/or opaque liquid, but mucosa of colon segment seen well. 3 = Entire mucosa of colon segment seen well with no residual staining, small fragments of stool or opaque liquid) Impression and Post Procedure Diagnosis: Endoscopy Findings: hiatal hernia schatzki ring esophagitis gastritis duodenitis Colonoscopy Findings: polyps internal hemorrhoids Plan: Await Pathology results Repeat Colonoscopy in 1-2 years due to fair right sided prep or earlier if clinically indicated High fiber diet leaflet avoid straining at stool, epsom salts and sitz bath, anusol supps or cream GERD precautions and PPI compliance PATHOLOGY RESULTS Diagnosis A. Duodenum, biopsy: Duodenal mucosa with preserved villi and no specific change. B. Stomach, biopsy: Gastric antral and body mucosa with focal congestion and focal minimal chronic inactive inflammation; negative for H pylori, intestinal metaplasia and dysplasia. C. Gastroesophageal junction, biopsy: Squamous mucosa with mild hyperplasia and focal intraepithelial eosinophils (up to 7 per high-power field) consistent with reflux esophagitis, and columnar mucosa with mild chronic inflammation; negative for intestinal metaplasia and dysplasia. D. Esophagus, distal, biopsy: Squamous mucosa with mild hyperplasia and few intraepithelial eosinophils (up to 3 per high-power field consistent with reflux esophagitis, and scant strips of columnar mucosa; negative for intestinal metaplasia and dysplasia. E. Colon, transverse, 2 polyps: Consistent with sessile serrated lesions/polyps without dysplasia, two. F. Colon, sigmoid, polyp: Fragment of colonic mucosa with no specific change and fragments of fecal material; no adenomatous dysplasia seen TODAY'S VISIT: Patient is here today for follow-up and to discuss upper endoscopy and colonoscopy results. Patient denies any ill effects from the prep, anesthesia or procedure itself. Patient continues to have postprandial loose stools. Patient reports that she has not tried changed her diet. Patient reports that she feels like she empties her bowels completely. Colonoscopy and upper endoscopy results discussed with patient. Patient had suboptimal prep to right side of her colon and she will need to repeat colonoscopy in 1-2 years. Patient denies melena, hematochezia, unintentional weight loss or ribbon like stools. Patient denies dyspepsia, dysphagia or odynophagia patient denies any nausea or vomiting. Upper endoscopy showed gastritis, duodenitis, esophagitis as well as Schatzki ring. [facility] Medical History Burning sensation of vulva Vulvar pain Hidradenitis suppurativa Acute bronchitis BRCA gene mutation negative Abdominal tenderness Acute vaginitis Smoking Morbid obesity Fibromyalgia Pelvic pain in female At high risk for breast cancer GERD (gastroesophageal reflux disease) Migraine Asthma Vitamin B12 deficiency Vitamin D deficiency Anti-phospholipid syndrome PCOS (polycystic ovarian syndrome) Hypercholesterolemia Hypertension Type 2 diabetes mellitus with hyperglycemia Surgical History H/O oral surgery H/O colonoscopy H/O endoscopy Family History Mother Cervical cancer Maternal Aunt Breast cancer Cervical cancer Maternal Aunt Breast cancer Cervical cancer Maternal Aunt Cervical cancer Maternal Aunt Cervical cancer Housing: Apartment Housing Other:: 2019 Alcohol intake: never Patient Tobacco Use Status: Current everyday Tobacco user Tobacco use type: Cigarette Cigarette Packs Per Day: 2 Cigarettes Per Day: 25 e-Cigarette/Vaping Use: Never Used Second Hand Smoke Exposure: No service: No Cognitive needs: No Hearing needs: No Vision needs: Yes Review of Systems Const Denies weight gain and Denies weight loss ENT Reports no additional complaints, Denies dysphagia and Denies odynophagia Card Reports no additional complaints Resp Reports no additional complaints GI Denies abdominal pain, Denies belching, Denies melena, Reports bloating, Denies change in bowel habits, Denies dysphagia, Denies excessive flatus, Denies dyspepsia, Denies heartburn, Denies diarrhea, Reports loose stools, Denies nausea, Denies odynophagia and Denies vomiting Musc Reports no additional complaints Neuro Reports no additional complaints Psych Reports no additional complaints Endo Reports no additional complaints Physical Exam Vital Signs: Last Vital Signs Pulse 95 04/06/23 13:47 BP 148/88 H 04/06/23 13:47 Pulse Ox 98 04/06/23 13:47 Oxygen Delivery Method Room Air 04/06/23 13:47 BMI result Body Mass Index 40.9 Const General: healthy appearing, no acute distress and well developed Nutritional Appearance: obese Orientation/consciousness: patient oriented x3 HEENT Head: Yes normal to inspection, Yes normocephalic and Yes atraumatic Face and sinus: Yes normal facial exam Mouth: Normal oral and palatal mucosa present Throat: Yes posterior oropharynx normal, Yes tonsils normal and Yes uvula midline Eyes General: appearance normal, both eyes and all related structures Neck Neck: Yes normal visual inspection, Yes full ROM and Yes trachea midline Thyroid: Thyroid normal Resp Effort & Inspection: normal respiratory effort, able to speak in complete sentences, no tracheal deviation and symmetric chest movement Auscultation: clear to auscultation bilaterally Cardio Rate: regular rate Heart sounds: S1 normal heart sound present and S2 normal heart sound present GI Inspection: Yes normal to inspection, No distended and Yes obesity Palpation (GI): Soft to palpation, not firm, nontender and No hepatosplenomegaly present Auscultation: normal bowel sounds General: Yes no CVA tenderness Back/Spine/Pelvis Back: no CVA tenderness Skin General skin exam: elasticity normal, turgor normal and dry skin Neuro General: patient oriented x3 Psych Appearance: grossly normal Mental Status: mental status grossly normal Assessment & Plan Assessment & Plan (1) GERD (gastroesophageal reflux disease): Code(s): K21.9 - Gastro-esophageal reflux disease without esophagitis Qualifiers: Esophagitis presence: esophagitis presence not specified Qualified Code (s): K21.9 - Gastro-esophageal reflux disease without esophagitis (2) IBS (irritable bowel syndrome): Code(s): K58.9 - Irritable bowel syndrome without diarrhea Qualifiers: Irritable bowel syndrome type: with both diarrhea and constipation Qual ified Code(s): K58.2 - Mixed irritable bowel syndrome (3) Postprandial abdominal bloating: Code(s): R14.0 - Abdominal distension (gaseous) (4) Gastritis: Code(s): K29.70 - Gastritis, unspecified, without bleeding Qualifiers: Gastritis type: other gastritis Chronicity: chronic Gastritis bleeding: without bleeding Qualified Code(s): K29.50 - Unspecified chronic gastritis without bleeding (5) Duodenitis: Code(s): K29.80 - Duodenitis without bleeding (6) Esophagitis: Code(s): K20.90 - Esophagitis, unspecified without bleeding (7) Schatzki's ring: Code(s): K22.2 - Esophageal obstruction Plan Patient will continue lansoprazole. Will start patient on sucralfate twice a day. Patient will take Citrucel 2 tablets daily. Discussed with patient low FODMAP diet. List of food recommended as well as list of food to avoid given to patient. Patient will need to return for colorectal screening in 1-2 years due to suboptimal prep to right side of her colon. Will send patient for allergen testing, esophagitis found with some eosinophils. Patient was encouraged to stop lactose and gluten or try to avoid as much as possible. Recommendation was made to also try elimination diet if possible. I will see patient in 3 months, sooner on as needed basis. Patient is agreeable to this plan and verbalizes understanding of instructions. She was given the opportunity to ask questions and all questions answered. Thank you for allowing me to participate in her care Orders: Orders Rast Allergen 04/06/23 K21.9 - Gastro-esophageal reflux disease without esophagitis Medications: New sucralfate 1 g PO BID 60 tabs 3RF R19.7 - Diarrhea, unspecified Changed From methylcellulose (laxative) take it with full glass of water 500 mg PO DAILY 90 tabs 2RF K59.00 - Constipation, unspecified To methylcellulose (laxative) (Citrucel) take it with full glass of water 1,000 mg (2 x 500 mg) PO DAILY 180 tabs 2RF K59.00 - Constipation, unspecified Coding Level of Care Code Est Pt Level 4 (54299) Diagnoses Gastroesophageal reflux disease, unspecified whether esophagitis present K21.9 Esophagitis presence: esophagitis presence not specified Irritable bowel syndrome with both constipation and diarrhea K58.2 Irritable bowel syndrome type: with both diarrhea and constipation Postprandial abdominal bloating R14.0 Other chronic gastritis without hemorrhage K29.50 Gastritis type: other gastritis Chronicity: chronic Gastritis bleeding: without bleeding Duodenitis K29.80 Esophagitis K20.90 Schatzki's ring K22.2 Time Spent (min) 35 Comment 25 minutes spent with patient and additional 10 minutes spent reviewing her records
== END 2023-04-06 14:29 | disposition home or self-care (01) ==
PROVIDERS: PCP Internal Medicine; Visit Provider Nurse Practitioner Family
DX: K21.9 Gastro-esophageal reflux disease without esophagitis (principal); K58.2 Mixed irritable bowel syndrome; R14.0 Abdominal distension (gaseous); K29.50 Unspecified chronic gastritis without bleeding; K29.80 Duodenitis without bleeding; K20.90 Esophagitis, unspecified without bleeding; K22.2 Esophageal obstruction
CPT/HCPCS: 99214

== ENCOUNTER → 2023-04-06 13:14 | Outpatient (BNVA) | payer OTHER, SELFPAY | PROVIDERS: PCP Internal Medicine; Visit Provider Nurse Practitioner Family | DX: K21.9 Gastro-esophageal reflux disease without esophagitis (principal); K58.2 Mixed irritable bowel syndrome; R14.0 Abdominal distension (gaseous); K29.50 Unspecified chronic gastritis without bleeding; K29.80 Duodenitis without bleeding; K20.90 Esophagitis, unspecified without bleeding; K22.2 Esophageal obstruction | CPT/HCPCS: 99212 ==

== ENCOUNTER 2023-04-17 10:59 | Outpatient (REF) | payer OTHER, SELFPAY | END 2023-04-17 11:00 | disposition home or self-care (01) | LOC: HO.HMGCLDS 10:59 | PROVIDERS: PCP Internal Medicine; Visit Provider Nurse Practitioner Family | DX: K21.9 Gastro-esophageal reflux disease without esophagitis (principal) | CPT/HCPCS: 36415; 86003 ==

== ENCOUNTER 2023-07-19 12:15 | Outpatient (REF) | payer OTHER, SELFPAY | END 2023-07-19 12:16 | disposition home or self-care (01) | LOC: HO.MAMMO 12:15 | PROVIDERS: PCP Internal Medicine; Visit Provider Internal Medicine | DX: Z12.31 Encounter for screening mammogram for malignant neoplasm of breast (principal) | CPT/HCPCS: 77063; 77067 ==

== ENCOUNTER → 2023-07-19 12:15 | Outpatient (BNV) | payer OTHER, SELFPAY | PROVIDERS: PCP Internal Medicine; Visit Provider Radiology Diagnostic Radiology | DX: Z12.31 Encounter for screening mammogram for malignant neoplasm of breast (principal) | CPT/HCPCS: 77063; 77067 ==

== ENCOUNTER 2023-07-21 11:15 | Outpatient (AMB) | payer OTHER, SELFPAY ==
[2023-07-21 11:25] VITALS: BMI 40.2
--- NOTE | 2023-07-21 11:25 | MHC.OFFVIS ---
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 Intake Note: c/o of vaginal burning Meal Attendant Required: No Information Interpreted: non-clinical & clinical Deckhand Sponge Boat: Deckhand Sponge Boat Present (Holli STYLES) Accompanied by: Self / Same As Patient Allergies simvastatin Allergy (Unknown, Verified 07/21/23 11:29) Unknown sitagliptin [Januvia] Allergy (Unknown, Verified 07/21/23 11:29) nausea, vomits, cramps verapamil Allergy (Unknown, Verified 07/21/23 11:29) shortness of breath pioglitazone Adverse Reaction (Intermediate, Verified 07/21/23 11:29) Abdominal Pain Is last menstrual period known: Yes Last menstrual period: 07/18/23 HPI HPI Comments History of Present Illness Details She is a premenopausal woman presenting for annual examination. Doing well with no concerns. Admits to memory loss. She tries to eat healthy, only once a day, active with walking/housework. Regular monthly menses after 12 yrs., reports lower vaginal pain and burning with her menses. History of vulvar pain and burning, had a referral year ago at [place] to see the specialist does not keep an appointment. 2018, not sexually active since. Last pap smear 02/2022, negative. Mammogram: Pending report. Colonoscopy is UTD. [facility], [facility] Medical History Burning sensation of vulva Vulvar pain Hidradenitis suppurativa Acute bronchitis BRCA gene mutation negative Abdominal tenderness Acute vaginitis Smoking Morbid obesity Fibromyalgia Pelvic pain in female At high risk for breast cancer GERD (gastroesophageal reflux disease) Migraine Asthma Vitamin B12 deficiency Vitamin D deficiency Anti-phospholipid syndrome PCOS (polycystic ovarian syndrome) Hypercholesterolemia Hypertension Type 2 diabetes mellitus with hyperglycemia Surgical History H/O oral surgery H/O colonoscopy H/O endoscopy Family History Mother Cervical cancer Maternal Aunt Breast cancer Cervical cancer Maternal Aunt Breast cancer Cervical cancer Maternal Aunt Cervical cancer Maternal Aunt Cervical cancer Social History Housing: Apartment Housing Other:: 2019 Alcohol intake: never Patient Tobacco Use Status: Current everyday Tobacco user Tobacco use type: Cigarette Cigarette Packs Per Day: 2 Cigarettes Per Day: 25 e-Cigarette/Vaping Use: Never Used Second Hand Smoke Exposure: No service: No Cognitive needs: No Hearing needs: No Vision needs: Yes Female Reproductive History Menstrual Date of last menstrual period: 07/18/23 Total pregnancies: 0 Date of last pap smear: 02/03/22 Date of Mammogram: 07/19/23 Review of Systems Const All systems reviewed & are unremarkable except as noted in HPI and below Reports as per HPI Eyes Reports no additional complaints ENT Reports no additional complaints Card Reports no additional complaints Resp Reports no additional complaints GI Reports as per HPI and Reports no additional complaints Reports as per HPI Musc Reports no additional complaints Skin/Breast Reports as per HPI Neuro Reports no additional complaints Psych Reports no additional complaints Endo Reports no additional complaints Fan/Lymph Reports no additional complaints Aller/Immun Reports no additional complaints Physical Exam Vital Signs: BMI result Body Mass Index 40.2 Const General: cooperative, healthy appearing, no acute distress, well developed and alert Orientation/consciousness: patient oriented x3 HEENT Head: Yes normal to inspection Eyes General: appearance normal, both eyes and all related structures Neck Neck: Yes normal visual inspection Thyroid: Thyroid normal Chest Chest palpation & inspection: normal inspection of the chest and other (no puckering, dimpling, peau de orange, retraction, discharge, masses) Breast/axilla inspection: normal inspection of the breasts Breast/axilla palpation: normal palpation of the breasts Resp Effort & Inspection: normal respiratory effort GI Inspection: Yes normal to inspection Palpation (GI): Soft to palpation Rectal Exam - Female: deferred General: Yes bladder normal to palpation External Female Exam: normal external appearance and normal appearance of the urethra Speculum Exam - Vagina: normal appearance of the vagina, normal palpation and normal vaginal discharge Speculum Exam - Cervix: normal appearance of the cervix and normal palpation Bimanual exam- vagina & uterus: normal bimanual exam, normal palpation, uterine size normal, bladder normal to palpation, normal palpation and non-tender Bimanual Exam- Adnexa, other: no masses Skin General skin exam: no rashes or lesions noted Rashes: no rashes Neuro General: patient oriented x3 Cognition (Neuro): normal cognition Extrem General: Yes normal to inspection Psych Attitude: cooperative Thought process: Normal thought process present Assessment & Plan Assessment & Plan (1) Encounter for well woman exam with routine gynecological exam: Code(s): Z01.419 - Encounter for gynecological examination (general) (routine) without abnormal findings Plan Discussed: Current recommendations for pap smears per ASCCP guidelines. Breast awareness and periodic breast exams. Maintain a healthy lifestyle including a well balanced diet and routine exercise. Mammogram yearly. Referral placed to [place] for the vulvar specialist to evaluate for her vulvar pain and burning. BV panel obtained today await results. Monitor her menstrual cycle if there is any abnormalities prolonged bleeding, bleeding less than 3 weeks apart to call immediately for further evaluation. Patient verbalizes understanding and agrees to the plan of care. She was given opportunity to ask questions and all questions were answered to the best of my ability. She is agreeable to the plan of care. RTO in one year for annual power washer examination. This note is constructed using voice recognition software. While every effort has been made to ensure accuracy, neurology tech errors may have been included. Orders: Orders Bacterial Vaginosis Panel Today R10.2 - Pelvic and perineal pain Coding Level of Care Code Est Pt Prev Care 40-64y(10626) Diagnoses Encounter for well woman exam with routine gynecological exam Z01.419
== END 2023-07-21 11:55 | disposition home or self-care (01) ==
LOC: HO.HWS 11:15
PROVIDERS: PCP Internal Medicine; Visit Provider Advanced Practice Midwife
DX: Z01.419 Encounter for gynecological examination (general) (routine) without abnormal findings (principal)
CPT/HCPCS: 99396

== ENCOUNTER 2023-07-21 11:15 | Outpatient (REF) | payer OTHER, SELFPAY ==
[2023-07-22 11:36] LABS: BV Int Neg Control Negative (Negative); BV Int Pos Control Positive (Positive)
== END 2023-07-21 11:16 | disposition home or self-care (01) ==
LOC: HO.LNP 11:15
PROVIDERS: PCP Internal Medicine; Visit Provider Advanced Practice Midwife
DX: Z01.419 Encounter for gynecological examination (general) (routine) without abnormal findings (principal); R10.2 Pelvic and perineal pain
CPT/HCPCS: 87480; 87510; 87660; 99396

== ENCOUNTER 2023-08-10 15:26 | Outpatient (AMB) | payer OTHER, SELFPAY ==
[2023-08-10 15:29] VITALS: BP 142/82; PULSE 94; O2SAT 99; BMI 40.0
--- NOTE | 2023-08-10 15:29 | A.OFFPC_ITS ---
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 Last seen in October 2021. Patient's colonoscopy is up-to-date March 2023 and advised to repeat in 1 year mammogram is due for June. Patient has followed up with Gastroenterology due to having diarrhea they did find a hiatal hernia Schatzki's ring esophagitis noted also polyps and but advised repeat testing in 1-2 years due to poor prep. diarrhea has stopped [facility] Medical History Burning sensation of vulva Vulvar pain Hidradenitis suppurativa Acute bronchitis BRCA gene mutation negative Abdominal tenderness Acute vaginitis Smoking Morbid obesity Fibromyalgia Pelvic pain in female At high risk for breast cancer GERD (gastroesophageal reflux disease) Migraine Asthma Vitamin B12 deficiency Vitamin D deficiency Anti-phospholipid syndrome PCOS (polycystic ovarian syndrome) Hypercholesterolemia Hypertension Type 2 diabetes mellitus with hyperglycemia Surgical History H/O oral surgery H/O colonoscopy H/O endoscopy Family History Mother Cervical cancer Maternal Aunt Breast cancer Cervical cancer Maternal Aunt Breast cancer Cervical cancer Maternal Aunt Cervical cancer Maternal Aunt Cervical cancer Social History Housing: Apartment Housing Other:: 2019 Alcohol intake: never Patient Tobacco Use Status: Current everyday Tobacco user Tobacco use type: Cigarette Cigarette Packs Per Day: 2 Cigarettes Per Day: 25 e-Cigarette/Vaping Use: Never Used Second Hand Smoke Exposure: No service: No Cognitive needs: No Hearing needs: No Vision needs: Yes Questionnaire Thrive Questionnaire Date Thrive assessed: 08/10/23 I am a: Patient What is your living situation today?: I have a steady place to live Within the past 12 months, did the food you bought not last and you didn't have the money to get more?: Never true Within the past 12 months, did you worry whether your food would run out before you got money to buy more?: Never true Do you have trouble paying for medicines?: No Do you have trouble getting transportation to medical appointments?: No Do you have trouble paying your heating and electricity bill?: No Do you have trouble taking care of your child, family member or friend?: No Do you have trouble with day-to-day activities such as bathing, preparing meals, shopping, managing finances, etc.?: No Are you currently unemployed and looking for a job?: No Are you interested in more education?: No Please select the resources that you would like help with: None THRIVE Score: 0 AUDIT C Alcohol Use Questionnaire (AUDIT-C) 1. How often do you have a drink containing alcohol?: Never 2. How many drinks containing alcohol do you have on a typical day when you are drinking?: 1 or 2 (0) 3. How often do you have six or more drinks on one occasion?: Never Total Score: 0 LUCY-7 AMB Questionnaire LUCY-7 Date LUCY - 7 assessed: 08/10/23 Source: Developed by Drs. Lex Claudio, Maday Greenfield, Aaron Baxter and colleagues, with an educational luz maria from [employer]. Physical exam (Primary Care) Vital Signs: Last Vital Signs Pulse 94 08/10/23 15:29 BP 142/82 H 08/10/23 15:29 Pulse Ox 99 08/10/23 15:29 Oxygen Delivery Method Room Air 08/10/23 15:29 BMI result Body Mass Index 40.0 Tobacco/Smoking Status: Tobacco use Status Tobacco use date assessed 08/10/23 08/10/23 15:30 Patient Tobacco Use Status Current everyday Tobacco 08/10/23 15:30 Tobacco use type Cigarette 08/10/23 15:30 e-Cigarette/Vaping Use Never Used 08/10/23 15:30 Thrive Assessment: Date of Thrive Assessment Date Thrive assessed 08/10/23 08/10/23 15:30 Const General: alert; No acute distress Eyes Conjunctivae: conjunctivae normal Resp Auscultation: clear to auscultation bilaterally Cardio Rate: regular rate Rhythm: regular rhythm GI Inspection: Yes normal to inspection Extrem General: Yes normal to inspection and No edema Results AMB Hemoglobin A1c AMB Hemoglobin A1c 5.5 % Last Edit by STEPHANI Da Silva on 08/10/23 16:50 Assessment and Plan Assessment & Plan (1) Type 2 diabetes mellitus with hyperglycemia: Code(s): E11.65 - Type 2 diabetes mellitus with hyperglycemia Plan: Decrease the amount of carbohydrate intake, pasta, bread, rice and potatoes are all sugar and that is aside from all the sweet stuff, remember that fruits are good but they are Sweet also. Hemoglobin A1c goal of less than 6.5. Patient on glipizide 5 mg twice a day metformin 500 mg twice a day and was started on Mounjaro and has been tolerating this well (2) Obesity: Code(s): E66.9 - Obesity, unspecified Plan: Diet and exercise (3) Hypertension: Code(s): I10 - Essential (primary) hypertension Plan: Continue with blood pressure medication. Decrease salt intake and exercise presently on lisinopril 40 mg once a day (4) Hypercholesterolemia: Code(s): E78.00 - Pure hypercholesterolemia, unspecified Plan: Avoid fried foods, chicken skin, eggs, butter margarine, pastries and meat. Be it pork or beef they have a lot of cholesterol LDL goal of less than 100 and triglyceride of less than 150 (5) Asthma: Code(s): J45.909 - Unspecified asthma, uncomplicated Plan: Continue with inhaler but advised to strongly stop smoking (6) GERD (gastroesophageal reflux disease): Code(s): K21.9 - Gastro-esophageal reflux disease without esophagitis Qualifiers: Esophagitis presence: esophagitis presence not specified Qualified Code(s): K21.9 - Gastro-esophageal reflux disease without esophagitis Plan: Avoid the foods that causes that usually spicy foods, tomato products, juices, coffee, soda and foods that your sensitive to. After eating do not lie down, allow 3-4 hours before in lie down. And keep the head of bed above 30 degrees to avoid the acid from going up. Advised to stop smoking (7) Tobacco abuse: Code(s): Z72.0 - Tobacco use Plan: Stop smoking! (8) Recurrent major depression: Comment: Decline counseling July 2021 Code(s): F33.9 - Major depressive disorder, recurrent, unspecified Plan: Continue with present medication and discussed again on having counseling. But declined counseling again (9) Low back pain: Code(s): M54.50 - Low back pain, unspecified Plan: Will have some x-rays done. Two thousand seventeen x-ray reveals mild spondylosis patient did complain about having a fall in May which is 4 months ago. (10) Flank pain: Code(s): R10.9 - Unspecified abdominal pain Plan: Request for urinalysis Orders: Orders AMB Hemoglobin A1c Today E11.65 - Type 2 diabetes mellitus with hyperglycemia XR thoracic spine 2V Today M54.50 - Low back pain, unspecified MR head/brain wo con Today G43.909 - Migraine, unspecified, not intractable, without status migrainosus Comprehensive Met. Panel 3 Months E78.00 - Pure hypercholesterolemia, unspecified Free T4 (Free Thyroxine) 3 Months E78.00 - Pure hypercholesterolemia, unspecified Vitamin D 25-OH Total 3 Months E78.00 - Pure hypercholesterolemia, unspecified Hemoglobin A1c 3 Months E78.00 - Pure hypercholesterolemia, unspecified XR lumbar spine 2-3V Today M54.50 - Low back pain, unspecified UA CC w/rflx Micro + Cult Today R10.9 - Unspecified abdominal pain, R30.0 - Dysuria Complete Blood Count Auto Diff 3 Months E78.00 - Pure hypercholesterolemia, unspecified Thyroid Stimulating Hormone 3 Months E78.00 - Pure hypercholesterolemia, unspecified Lipid Panel 3 Months E78.00 - Pure hypercholesterolemia, unspecified Vitamin B12 and Folate 3 Months E78.00 - Pure hypercholesterolemia, unspecified Microalbumin, Random (w Creat) 3 Months E11.65 - Type 2 diabetes mellitus with hyperglycemia, E78.00 - Pure hypercholesterolemia, unspecified Creatinine Urine 3 Months E11.65 - Type 2 diabetes mellitus with hyperglycemia, E78.00 - Pure hypercholesterolemia, unspecified Coding Level of Care Code Est Pt Level 4 (47205) Diagnoses Type 2 diabetes mellitus with hyperglycemia E11.65 Obesity E66.9 Hypertension I10 Hypercholesterolemia E78.00 Asthma J45.909 Gastroesophageal reflux disease, unspecified whether esophagitis present K21.9 Esophagitis presence: esophagitis presence not specified Tobacco abuse Z72.0 Recurrent major depression F33.9 Low back pain M54.50 Flank pain R10.9
== END 2023-08-10 16:58 | disposition home or self-care (01) ==
PROVIDERS: PCP Internal Medicine; Visit Provider Internal Medicine
DX: E11.65 Type 2 diabetes mellitus with hyperglycemia (principal); F33.9 Major depressive disorder, recurrent, unspecified; Z68.41 Body mass index [BMI] 40.0-44.9, adult; E66.9 Obesity, unspecified; I10 Essential (primary) hypertension; E78.00 Pure hypercholesterolemia, unspecified; J45.909 Unspecified asthma, uncomplicated; K21.9 Gastro-esophageal reflux disease without esophagitis; Z72.0 Tobacco use; M54.50 Low back pain, unspecified; R10.9 Unspecified abdominal pain
CPT/HCPCS: 83036; 99214

== ENCOUNTER 2023-09-13 09:33 | Outpatient (REF) | payer OTHER, SELFPAY ==
--- NOTE | ~2023-09-13 | XR_ITS ---
EXAMINATION: XR THORACIC SPINE CLINICAL INFORMATION: Back pain. COMPARISON: None available. TECHNIQUE: Frontal, lateral and swimmer's views of the thoracic spine were obtained. FINDINGS: Vertebral body heights and alignment are normal. The cervical and thoracic disc spaces are well-maintained. No acute fracture or spondylolisthesis is seen. There is multi-level mild thoracic anterior endplate arthropathy. The posterior elements are intact. The paravertebral soft tissues are unremarkable. XR/XR thoracic spine 2V IMPRESSION: 1. No acute fracture or spondylolisthesis is seen. 2. The cervical and thoracic disc spaces are well-maintained. 3. There is multi-level mild thoracic anterior endplate arthropathy. EXAMINATION: XR LUMBOSACRAL SPINE CLINICAL INFORMATION: Lower back pain. COMPARISON: None TECHNIQUE: AP and lateral views of the lumbar spine and lateral view of the lumbosacral junction. FINDINGS: Vertebral body heights and alignment are normal. The lumbar disc spaces are well-maintained. No acute fracture or spondylolisthesis is seen. There is multi-level mild lumbar anterior endplate arthropathy. The posterior elements are intact. The paravertebral soft tissues are unremarkable. IMPRESSION: 1. No acute fracture or spondylolisthesis is seen. 2. The lumbar disc spaces are well-maintained. 3. There is multi-level mild lumbar anterior endplate arthropathy.
--- NOTE | ~2023-09-13 | XR_ITS ---
EXAMINATION: XR THORACIC SPINE CLINICAL INFORMATION: Back pain. COMPARISON: None available. TECHNIQUE: Frontal, lateral and swimmer's views of the thoracic spine were obtained. FINDINGS: Vertebral body heights and alignment are normal. The cervical and thoracic disc spaces are well-maintained. No acute fracture or spondylolisthesis is seen. There is multi-level mild thoracic anterior endplate arthropathy. The posterior elements are intact. The paravertebral soft tissues are unremarkable. XR/XR lumbar spine 2-3V IMPRESSION: 1. No acute fracture or spondylolisthesis is seen. 2. The cervical and thoracic disc spaces are well-maintained. 3. There is multi-level mild thoracic anterior endplate arthropathy. EXAMINATION: XR LUMBOSACRAL SPINE CLINICAL INFORMATION: Lower back pain. COMPARISON: None TECHNIQUE: AP and lateral views of the lumbar spine and lateral view of the lumbosacral junction. FINDINGS: Vertebral body heights and alignment are normal. The lumbar disc spaces are well-maintained. No acute fracture or spondylolisthesis is seen. There is multi-level mild lumbar anterior endplate arthropathy. The posterior elements are intact. The paravertebral soft tissues are unremarkable. IMPRESSION: 1. No acute fracture or spondylolisthesis is seen. 2. The lumbar disc spaces are well-maintained. 3. There is multi-level mild lumbar anterior endplate arthropathy.
--- NOTE | ~2023-09-13 | MR_ITS ---
EXAMINATION: MR BRAIN WITHOUT CONTRAST CLINICAL INFORMATION: Migraine. COMPARISON: Brain MRI from 03/21/2013. TECHNIQUE: MRI of the brain was obtained using routine sequences without contrast. FINDINGS: No focal restricted diffusion is demonstrated to suggest acute or subacute cerebral ischemia. No evidence of acute or chronic hemorrhagic products on heme-sensitive imaging. Scattered and partially confluent periventricular, deep white matter, and brainstem T2 FLAIR hyperintensities consistent with moderate underlying microangiopathy. Proportional prominence of the ventricles and sulcal spaces without evidence of obstructive hydrocephalus. No abnormal mass effect. No midline shift. Normal appearance of the pituitary gland. Normal positioning of the cerebellar tonsils. Normal arterial and venous vascular flow voids are present. Normal, homogeneous marrow signal. Mild mucosal thickening of the paranasal sinuses. Moderate right-sided mastoid effusion. No signal abnormalities within the left mastoid. MR/MR head/brain wo con IMPRESSION: 1. No acute intracranial abnormalities. 2. Moderate underlying microangiopathy and generalized cerebral volume loss. 3. Moderate right-sided mastoid effusion.
== END 2023-09-13 09:34 | disposition home or self-care (01) ==
LOC: HO.MRI 09:33
PROVIDERS: PCP Internal Medicine; Visit Provider Internal Medicine
DX: G43.909 Migraine, unspecified, not intractable, without status migrainosus (principal); M54.50 Low back pain, unspecified
CPT/HCPCS: 70551; 72070; 72100

== ENCOUNTER 2023-10-31 11:56 | Outpatient (AMB) | payer OTHER, SELFPAY ==
--- NOTE | 2023-10-31 12:13 | MHC.OFFVIS ---
Vital Signs 10/31/23 12:15 Height 5 ft 3 in Weight 229 lb BMI 40.6 BP 130/62 Blood Pressure Location Lt brachial Position Sitting Pulse 82 Intake Visit Reasons: r/s from 09/25/23 Intake Note: Patient follow up for Duodenitis and Rast allergens test result. Patient cc: abdominal bloating, acid reflex with burning sensation on and off, swallowing problems with solid and liquid, too. Civil Cadd Technician Required: No Accompanied by: Self / Same As Patient Allergies simvastatin Allergy (Unknown, Verified 10/31/23 12:13) Unknown sitagliptin [Januvia] Allergy (Unknown, Verified 10/31/23 12:13) nausea, vomits, cramps verapamil Allergy (Unknown, Verified 10/31/23 12:13) shortness of breath pioglitazone Adverse Reaction (Intermediate, Verified 10/31/23 12:13) Abdominal Pain HPI HPI r/s from 09/25/23: Details: LAST VISIT: GERD (gastroesophageal reflux disease) IBS (irritable bowel syndrome) Postprandial abdominal bloating Gastritis Duodenitis Esophagitis Schatzki's ring Plan Patient will continue lansoprazole. Will start patient on sucralfate twice a day. Patient will take Citrucel 2 tablets daily. Discussed with patient low FODMAP diet. List of food recommended as well as list of food to avoid given to patient. Patient will need to return for colorectal screening in 1-2 years due to suboptimal prep to right side of her colon. Will send patient for allergen testing, esophagitis found with some eosinophils. Patient was encouraged to stop lactose and gluten or try to avoid as much as possible. Recommendation was made to also try elimination diet if possible. I will see patient in 3 months, sooner on as needed basis. Patient is agreeable to this plan and verbalizes understanding of instructions. She was given the opportunity to ask questions and all questions answered. ? Thank you for allowing me to participate in her care Orders Orders Rast Allergen 04/06/23 K21.9 Medications New sucralfate 1 g PO BID 60 tabs 3RF R19.7 Changed Changed From methylcellulose (laxative) take it with full glass of water 500 mg PO DAILY 90 tabs 2RF K59.00 Changed To methylcellulose (laxative) (Citrucel) take it with full glass of water 1,000 mg (2 x 500 mg) PO DAILY 180 tabs 2RF K59.00 TODAY'S VISIT Patient is here today for follow-up. Patient reports that since she started taking Citrucel 2 tablets daily she is able to control her bowels better. Patient no longer experiences loose stools, however she does not feel like she empties her bowels completely. Patient no longer feels bloated postprandially. She still gets occasional epigastric pain and acid reflux during the day. Currently is taking sucralfate twice a day and lansoprazole in the morning. Patient states that she is trying to avoid certain food. Trulicity was stopped and she was started on tirzepatide. Patient reports that she is feeling better, initial couple weeks patient reports that her symptoms were worse, however now they are much better. Patient states that her blood sugars are under good control now and her A1c in August was 5.5 % [facility] Medical History Burning sensation of vulva Vulvar pain Hidradenitis suppurativa Acute bronchitis BRCA gene mutation negative Abdominal tenderness Acute vaginitis Smoking Morbid obesity Fibromyalgia Pelvic pain in female At high risk for breast cancer GERD (gastroesophageal reflux disease) Migraine Asthma Vitamin B12 deficiency Vitamin D deficiency Anti-phospholipid syndrome PCOS (polycystic ovarian syndrome) Hypercholesterolemia Hypertension Type 2 diabetes mellitus with hyperglycemia Surgical History H/O oral surgery H/O colonoscopy H/O endoscopy Family History Mother Cervical cancer Maternal Aunt Breast cancer Cervical cancer Maternal Aunt Breast cancer Cervical cancer Maternal Aunt Cervical cancer Maternal Aunt Cervical cancer Social History Housing: Apartment Housing Other:: 2019 Alcohol intake: never Patient Tobacco Use Status: Current everyday Tobacco user Tobacco use type: Cigarette Cigarette Packs Per Day: 2 Cigarettes Per Day: 25 e-Cigarette/Vaping Use: Never Used Second Hand Smoke Exposure: No service: No Cognitive needs: No Hearing needs: No Vision needs: Yes Review of Systems Const Denies weight gain and Denies weight loss ENT Reports no additional complaints, Reports dysphagia (Occasional) and Denies odynophagia Card Reports no additional complaints Resp Reports no additional complaints GI Denies abdominal pain, Denies belching, Denies melena, Reports bloating, Denies change in bowel habits, Reports dysphagia (Occasional), Denies excessive flatus, Reports dyspepsia (Occasional), Reports heartburn (Occasional), Denies diarrhea, Denies loose stools, Denies nausea, Denies odynophagia and Denies vomiting Reports no additional complaints Musc Reports no additional complaints Neuro Reports no additional complaints Psych Reports no additional complaints Endo Reports no additional complaints Physical Exam Vital Signs: Last Vital Signs Pulse 82 10/31/23 12:15 BP 130/62 10/31/23 12:15 BMI result Body Mass Index 40.6 Const General: healthy appearing and no acute distress Nutritional Appearance: obese Orientation/consciousness: patient oriented x3 Resp Effort & Inspection: normal respiratory effort, able to speak in complete sentences, no tracheal deviation and symmetric chest movement Auscultation: clear to auscultation bilaterally Cardio Rate: regular rate Heart sounds: S1 normal heart sound present and S2 normal heart sound present GI Inspection: Yes normal to inspection, No distended and Yes obesity Palpation (GI): Soft to palpation, not firm, nontender and No hepatosplenomegaly present Auscultation: normal bowel sounds General: Yes no CVA tenderness Back/Spine/Pelvis Back: no CVA tenderness Skin General skin exam: elasticity normal, turgor normal and dry skin Neuro General: patient oriented x3 Psych Appearance: grossly normal Mental Status: mental status grossly normal Assessment & Plan Assessment & Plan (1) GERD (gastroesophageal reflux disease): Code(s): K21.9 - Gastro-esophageal reflux disease without esophagitis Category: Medical Qualifiers: Esophagitis presence: esophagitis presence not specified Qualified Code(s): K21.9 - Gastro-esophageal reflux disease without esophagitis (2) IBS (irritable bowel syndrome): Code(s): K58.9 - Irritable bowel syndrome without diarrhea Qualifiers: Irritable bowel syndrome type: with both diarrhea and constipation Qualified Code(s): K58.2 - Mixed irritable bowel syndrome (3) Postprandial abdominal bloating: Code(s): R14.0 - Abdominal distension (gaseous) (4) Gastritis: Code(s): K29.70 - Gastritis, unspecified, without bleeding Qualifiers: Gastritis type: other gastritis Chronicity: chronic Gastritis bleeding: without bleeding Qualified Code(s): K29.50 - Unspecified chronic gastritis without bleeding (5) Duodenitis: Code(s): K29.80 - Duodenitis without bleeding (6) Esophagitis: Code(s): K20.90 - Esophagitis, unspecified without bleeding (7) Schatzki's ring: Code(s): K22.2 - Esophageal obstruction (8) Constipation: Code(s): K59.00 - Constipation, unspecified Qualifiers: Constipation type: slow transit constipation Qualified Code(s): K59.01 - Slow transit constipation Plan Patient will stop lansoprazole and will change to Nexium. Avoid dietary triggers and late night snacking. Eating smaller meals and more often. Continue sucralfate twice a day. Patient can continue taking Citrucel 2 tablets daily. Not always feeling like she empties her bowels completely will start her on senna at bedtime. Patient will return in March she will be due to go for colonoscopy after April. Patient did have suboptimal prep last colonoscopy. Most likely she will be sent for upper endoscopy. Avoid dietary triggers and late night snacking. Staying upright for minimum 3 hours after meals discussed with patient. Patient is agreeable to this plan and verbalizes understanding of instructions. She was given the opportunity to ask questions and all questions answered. Thank you for allowing me to participate in her care Medications: New esomeprazole magnesium (Nexium) 40 mg PO DAILY 30 caps 5RF K21.9 - Gastro-esophageal reflux disease without esophagitis sennosides (Natural Senna Laxative) 17.2 mg (2 x 8.6 mg) PO BEDTIME 60 tabs 3RF constipation K59.00 - Constipation, unspecified Discontinued lansoprazole Discontinued Reason: Doctor's Order 30 mg PO DAILY 90 caps 1RF K21.9 - Gastro-esophageal reflux disease without esophagitis Coding Level of Care Code Est Pt Level 3 (29916) Diagnoses Gastroesophageal reflux disease, unspecified whether esophagitis present K21.9 Esophagitis presence: esophagitis presence not specified Irritable bowel syndrome with both constipation and diarrhea K58.2 Irritable bowel syndrome type: with both diarrhea and constipation Postprandial abdominal bloating R14.0 Other chronic gastritis without hemorrhage K29.50 Gastritis type: other gastritis Chronicity: chronic Gastritis bleeding: without bleeding Duodenitis K29.80 Esophagitis K20.90 Schatzki's ring K22.2 Slow transit constipation K59.01 Constipation type: slow transit constipation Time Spent (min) 30 Comment 20 minutes spent with patient and additional 10 minutes spent reviewing her records
[2023-10-31 12:15] VITALS: BP 130/62; PULSE 82; BMI 40.6
== END 2023-10-31 12:37 | disposition home or self-care (01) ==
PROVIDERS: PCP Internal Medicine; Visit Provider Nurse Practitioner Family
DX: K21.9 Gastro-esophageal reflux disease without esophagitis (principal); K58.2 Mixed irritable bowel syndrome; R14.0 Abdominal distension (gaseous); K29.50 Unspecified chronic gastritis without bleeding; K29.80 Duodenitis without bleeding; K20.90 Esophagitis, unspecified without bleeding; K22.2 Esophageal obstruction; K59.01 Slow transit constipation
CPT/HCPCS: 99213

== ENCOUNTER → 2023-10-31 11:56 | Outpatient (BNVA) | payer OTHER, SELFPAY | PROVIDERS: PCP Internal Medicine; Visit Provider Nurse Practitioner Family | DX: K21.9 Gastro-esophageal reflux disease without esophagitis (principal); K58.2 Mixed irritable bowel syndrome; K29.50 Unspecified chronic gastritis without bleeding; R14.0 Abdominal distension (gaseous); K29.80 Duodenitis without bleeding; K20.90 Esophagitis, unspecified without bleeding; K22.2 Esophageal obstruction; K59.01 Slow transit constipation | CPT/HCPCS: 99212 ==

== ENCOUNTER 2023-11-10 15:29 | Outpatient (AMB) | payer OTHER, SELFPAY ==
[2023-11-10 15:41] VITALS: BP 144/90; PULSE 93; O2SAT 98; BMI 40.7
--- NOTE | 2023-11-10 15:41 | A.OFFPC_ITS ---
Vital Signs 11/10/23 15:41 11/10/23 16:11 Height 5 ft 3 in Weight 230 lb BMI 40.7 BP 144/90 H 138/70 Blood Pressure Location Lt brachial Lt brachial Position Sitting Sitting Pulse 93 Pulse Source Pulse Oximeter Pulse Oximetry (%) 98 Oxygen Delivery Method Room Air Intake Visit Reasons: 3M Follow Up Filter Press Supervisor: Not Required per policy Accompanied by: Self / Same As Patient Allergies simvastatin Allergy (Unknown, Verified 10/31/23 12:13) Unknown sitagliptin [Januvia] Allergy (Unknown, Verified 10/31/23 12:13) nausea, vomits, cramps verapamil Allergy (Unknown, Verified 10/31/23 12:13) shortness of breath pioglitazone Adverse Reaction (Intermediate, Verified 10/31/23 12:13) Abdominal Pain Medication List - Last Reconciled 11/10/23 by Marely Gibbons MD amoxicillin-pot clavulanate 875-125 mg 1 tab PO BID atorvastatin 10 mg PO DAILY betamethasone, augmented 0.05 % 1 appl topical BID 7 days blood sugar diagnostic (FreeStyle Lite Strips) As directed check the blood sugar once a day blood-glucose meter (FreeStyle Lite Meter kit) check sugars once per day chlorhexidine gluconate 4% (Hibiclens) 1 appl topical .QOD 2 doses cyanocobalamin (vitamin B-12) 1,000 mcg PO DAILY esomeprazole magnesium (Nexium) 40 mg PO DAILY glipizide 5 mg PO BID lancets (FreeStyle Lancets) As directed check blood sugar once a day lisinopril 40 mg PO DAILY 30 days metformin 500 mg PO BID methylcellulose (laxative) (Citrucel) 1,000 mg (2 x 500 mg) PO DAILY metronidazole 500 mg PO BID 7 days nystatin 5 mL PO TID 7 days sennosides (Natural Senna Laxative) 17.2 mg (2 x 8.6 mg) PO BEDTIME sucralfate 1 g PO BID sumatriptan succinate 50 mg PO .QD PRN tirzepatide 10 mg (0.5 mL) subcut QWEEK 30 days tramadol 50 mg PO TID PRN 30 days Tobacco use date assessed: 08/10/23 Dental Screening Dental Screen Date: 08/10/23 HPI 3M Follow Up HPI Details 48-year-old morbidly obese female smoker with controlled diabetes mellitus hypertension hypercholesterolemia asthma GERD recurrent major depression coming in for follow-up. Last seen in 08/23/2023. Patient's colonoscopy was done in 03/24/2023 and was advised to follow-up this year. Mammogram is up-to-date patient just saw gastroenterology 10/31/2023 duodenitis currently on Carafate and lansoprazole which is going to be changed to Nexium though. with the obesity was placed on Mounjaro. Patient has been placed on Citrucel also to help with bowel movements colonoscopy planned April. Due to suboptimal prep. Also noted in September having an MRI of the brain moderate underlying microangiopathy and generalized cerebral volume loss moderate right- sided mastoid effusion. X-ray on the back done showing multilevel mild thoracic anterior endplate arthropathy. just started with mounhjaro [facility] Medical History (Updated 11/10/23 @ 15:59 by Marely Gibbons MD) Morbid obesity Colon cancer screening Burning sensation of vulva Vulvar pain Hidradenitis suppurativa Acute bronchitis BRCA gene mutation negative Abdominal tenderness Acute vaginitis Smoking Fibromyalgia Pelvic pain in female At high risk for breast cancer GERD (gastroesophageal reflux disease) Migraine Asthma Vitamin B12 deficiency Vitamin D deficiency Anti-phospholipid syndrome PCOS (polycystic ovarian syndrome) Hypercholesterolemia Hypertension Type 2 diabetes mellitus with hyperglycemia Surgical History H/O oral surgery H/O colonoscopy H/O endoscopy Family History Mother Cervical cancer Maternal Aunt Breast cancer Cervical cancer Maternal Aunt Breast cancer Cervical cancer Maternal Aunt Cervical cancer Maternal Aunt Cervical cancer Social History Housing: Apartment Housing Other:: 2019 Alcohol intake: never Patient Tobacco Use Status: Current everyday Tobacco user Tobacco use type: Cigarette Cigarette Packs Per Day: 2 Cigarettes Per Day: 25 e-Cigarette/Vaping Use: Never Used Second Hand Smoke Exposure: No service: No Cognitive needs: No Hearing needs: No Vision needs: Yes Questionnaire Thrive Questionnaire Date Thrive assessed: 08/10/23 LUCY-7 AMB Questionnaire LUCY-7 Date LUCY - 7 assessed: 08/10/23 Source: Developed by Drs. Lex Claudio, Maday BAaron Tan and colleagues, with an educational luz maria from [employer]. Physical exam (Primary Care) Vital Signs: Last Vital Signs Pulse 93 11/10/23 15:41 BP 144/90 H 11/10/23 15:41 Pulse Ox 98 11/10/23 15:41 Oxygen Delivery Method Room Air 11/10/23 15:41 BMI result Body Mass Index 40.7 Tobacco/Smoking Status: Tobacco use Status Tobacco use date assessed 08/10/23 11/10/23 15:41 Patient Tobacco Use Status Current everyday Tobacco 11/10/23 15:41 Tobacco use type Cigarette 11/10/23 15:41 e-Cigarette/Vaping Use Never Used 11/10/23 15:41 Thrive Assessment: Date of Thrive Assessment Date Thrive assessed 08/10/23 11/10/23 15:41 Const General: alert; No acute distress Eyes Conjunctivae: conjunctivae normal Resp Auscultation: clear to auscultation bilaterally Cardio Rate: regular rate Rhythm: regular rhythm GI Inspection: Yes normal to inspection Extrem General: Yes normal to inspection and No edema Assessment and Plan Assessment & Plan (1) Type 2 diabetes mellitus with hyperglycemia: Code(s): E11.65 - Type 2 diabetes mellitus with hyperglycemia Plan: Decrease the amount of carbohydrate intake, pasta, bread, rice and potatoes are all sugar and that is aside from all the sweet stuff, remember that fruits are good but they are Sweet also. Glipizide 5 mg twice a day metformin 500 mg twice a day and patient has been started on Mounjaro (2) Tobacco abuse: Code(s): Z72.0 - Tobacco use Plan: Patient is strongly advised to stop smoking! (3) Hypertension: Code(s): I10 - Essential (primary) hypertension Plan: Continue with blood pressure medication. Decrease salt intake and exercise on lisinopril 40 mg once a day (4) Hypercholesterolemia: Code(s): E78.00 - Pure hypercholesterolemia, unspecified Plan: Avoid fried foods, chicken skin, eggs, butter margarine, pastries and meat. Be it pork or beef they have a lot of cholesterol LDL goal of less than 100 and triglyceride of less than 150 11/22/2022 last blood work on atorvastatin 10 mg once a day (5) GERD (gastroesophageal reflux disease): Code(s): K21.9 - Gastro-esophageal reflux disease without esophagitis Qualifiers: Esophagitis presence: esophagitis presence not specified Qualified Code(s): K21.9 - Gastro-esophageal reflux disease without esophagitis Plan: Avoid the foods that causes that usually spicy foods, tomato products, juices, coffee, soda and foods that your sensitive to. After eating do not lie down, allow 3-4 hours before in lie down. And keep the head of bed above 30 degrees to avoid the acid from going up. Stop smoking! (6) Asthma: Code(s): J45.909 - Unspecified asthma, uncomplicated Plan: Patient was advised to stop smoking! (7) Recurrent major depression: Comment: Decline counseling July 2021 Code(s): F33.9 - Major depressive disorder, recurrent, unspecified Plan: Patient was offered referral for counseling but declined (8) Morbid obesity: Code(s): E66.01 - Morbid (severe) obesity due to excess calories Plan: Diet and exercise, has been started on Mounjaro Orders: Orders AMB Hemoglobin A1c Today E11.65 - Type 2 diabetes mellitus with hyperglycemia Medications: New albuterol sulfate 90 mcg/actuation (Ventolin HFA) 2 puffs inhalation Q6H PRN 8.5 grams 0RF shortness of breath or wheezing J45.909 - Unspecified asthma, uncomplicated baclofen 10 mg PO TID 60 tabs 0RF M54.50 - Low back pain, unspecified Changed From tirzepatide 7.5 mg (0.5 mL) subcut QWEEK 30 days 2.5 mL 3RF E11.65 - Type 2 diabetes mellitus with hyperglycemia To tirzepatide 10 mg (0.5 mL) subcut QWEEK 30 days 2.5 mL 1RF E11.65 - Type 2 diabetes mellitus with hyperglycemia Coding Level of Care Code Est Pt Level 4 (92888) Complex EM visit Add On G2211 Diagnoses Type 2 diabetes mellitus with hyperglycemia E11.65 Tobacco abuse Z72.0 Hypertension I10 Hypercholesterolemia E78.00 Gastroesophageal reflux disease, unspecified whether esophagitis present K21.9 Esophagitis presence: esophagitis presence not specified Asthma J45.909 Recurrent major depression F33.9 Morbid obesity E66.01
[2023-11-10 16:11] VITALS: BP 138/70
== END 2023-11-10 16:17 | disposition home or self-care (01) ==
PROVIDERS: PCP Internal Medicine; Visit Provider Internal Medicine
DX: E11.65 Type 2 diabetes mellitus with hyperglycemia (principal); F17.210 Nicotine dependence, cigarettes, uncomplicated; I10 Essential (primary) hypertension; F33.9 Major depressive disorder, recurrent, unspecified; K21.9 Gastro-esophageal reflux disease without esophagitis; J45.909 Unspecified asthma, uncomplicated
CPT/HCPCS: 99214; G2211

== ENCOUNTER 2024-02-09 14:08 | Outpatient (AMB) | payer OTHER, SELFPAY ==
--- NOTE | 2024-02-09 14:13 | A.OFFPC_ITS ---
Vital Signs 02/09/24 14:15 Height 5 ft 3 in Weight 225 lb 8 oz BMI 39.9 BP 136/70 Blood Pressure Location Lt brachial Position Sitting Pulse 88 Pulse Source Pulse Oximeter Pulse Oximetry (%) 97 Oxygen Delivery Method Room Air Intake Visit Reasons: 3M Follow Up Intake Note: Patient is here to follow up on DM, HTN, Hypercholesterolemia, Asthma. Complaint of difficulty urinating and kidney issues on going for months, lower back pain gotten worse recently. [employer] Worker Required: No Epic Kaleidoscope Analyst: Not Required per policy Accompanied by: Self / Same As Patient Allergies simvastatin Allergy (Unknown, Verified 02/09/24 14:15) Unknown sitagliptin [Januvia] Allergy (Unknown, Verified 02/09/24 14:15) nausea, vomits, cramps verapamil Allergy (Unknown, Verified 02/09/24 14:15) shortness of breath pioglitazone Adverse Reaction (Intermediate, Verified 02/09/24 14:15) Abdominal Pain Tobacco use date assessed: 02/09/24 Dental Screening Dental Screen Date: 08/10/23 HPI 3M Follow Up HPI Details 48-year-old obese smoker female with froylan betes mellitus hypertension hypercholesterolemia GERD asthma and recurrent major depression coming in for follow-up. Last seen in November 2023. Patient's colonoscopy needs to be done this year also. Mammogram is up-to-date. Patient continues to complain of low back pain and denies any fall or trauma states ever since had the colonoscopy had the rectal pain and low back pain. Patient will be seeing Gastroenterology anyway. Patient has been given tramadol which she says it is not helping and had some x-rays done showing preserved disc spaces as well as no spondylolisthesis. Advised patient to be referred to [facility], will start on pregabalin and discontinue tramadol and will do urinalysis also. As for the diabetes doing good no nausea from Mounjaro. Will increase the dose. [facility] Medical History (Updated 02/09/24 @ 14:49 by Marely Gibbons MD) Morbid obesity Colon cancer screening Burning sensation of vulva Vulvar pain Hidradenitis suppurativa Acute bronchitis BRCA gene mutation negative Abdominal tenderness Acute vaginitis Smoking Fibromyalgia Pelvic pain in female At high risk for breast cancer GERD (gastroesophageal reflux disease) Migraine Asthma Vitamin B12 deficiency Vitamin D deficiency Anti-phospholipid syndrome PCOS (polycystic ovarian syndrome) Hypercholesterolemia Hypertension Type 2 diabetes mellitus with hyperglycemia Surgical History H/O oral surgery H/O colonoscopy H/O endoscopy Family History Mother Cervical cancer Maternal Aunt Breast cancer Cervical cancer Maternal Aunt Breast cancer Cervical cancer Maternal Aunt Cervical cancer Maternal Aunt Cervical cancer Social History (Updated 02/09/24 @ 14:22 by STEPHANI Puga) Housing: Apartment Housing Other:: 2019 Alcohol intake: never Patient Tobacco Use Status: Current everyday Tobacco user Tobacco use type: Cigarette Cigarette Packs Per Day: 1.5 Cigarettes Per Day: 30 e-Cigarette/Vaping Use: Never Used Second Hand Smoke Exposure: Yes service: No Current occupational status: employed 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 1. Little interest or pleasure in doing things: not at all 2. Feeling down, depressed, or hopeless: not at all 3. Trouble falling or staying asleep, or sleeping too much: not at all 4. Feeling tired or having little energy: not at all 5. Poor appetite or overeating: not at all 6. Feeling bad about yourself - or that you are a failure or have let yourself or your family down: not at all 7. Trouble concentrating on things, such as reading the newspaper or watching television: not at all 8. Moving or speaking so slowly that other people could have noticed. Or the opposite - being so fidgety or restless that you have been moving around a lot more than usual: not at all 9. Thoughts that you would be better off or of hurting yourself in some way: not at all Total score: 0 Depression Screening Interpretation: Negative Depression Screening Done: Yes Source: Developed by Drs. Lex Claudio, Maday Greenfield, Aaron Baxter and colleagues, with an educational luz maria from [employer]. Thrive Questionnaire Date Thrive assessed: 08/10/23 LUCY-7 AMB Questionnaire LUCY-7 Date LUCY - 7 assessed: 08/10/23 Source: Developed by Drs. Lex Claudio, Maday Greenfield, Aaron Baxter and colleagues, with an educational luz maria from [employer]. Physical exam (Primary Care) Vital Signs: Last Vital Signs Pulse 88 02/09/24 14:15 BP 136/70 02/09/24 14:15 Pulse Ox 97 02/09/24 14:15 Oxygen Delivery Method Room Air 02/09/24 14:15 BMI result Body Mass Index 39.9 Tobacco/Smoking Status: Tobacco use Status Tobacco use date assessed 02/09/24 02/09/24 14:24 Patient Tobacco Use Status Current everyday Tobacco 02/09/24 14:24 Tobacco use type Cigarette 02/09/24 14:24 e-Cigarette/Vaping Use Never Used 02/09/24 14:24 PHQ-9: PHQ-9 Score PHQ-9: Total score 0 02/09/24 14:46 Depression Screening Interpretation: Negative Thrive Assessment: Date of Thrive Assessment Date Thrive assessed 08/10/23 02/09/24 14:24 Const General: alert; No acute distress Eyes Conjunctivae: conjunctivae normal Resp Auscultation: clear to auscultation bilaterally Cardio Rate: regular rate Rhythm: regular rhythm GI Inspection: Yes normal to inspection Extrem General: Yes normal to inspection and No edema Results AMB Hemoglobin A1c AMB Hemoglobin A1c 5.2 % Last Edit by STEPHANI Puga on 02/09/24 14:25 AMB Urinalysis, Automated UA Leukoctes 1 Barbara/uL Last Edit by STEPHANI Puga on 02/09/24 16:53 UA Nitrite Negative Last Edit by STEPHANI Puga on 02/09/24 16:53 UA Urobilinogen 0 mg/dL Last Edit by STEPHANI Puga on 02/09/24 16:53 UA Protein 0 mg/dL Last Edit by STEPHANI Puga on 02/09/24 16:53 UA pH 6.0 Last Edit by STEPHANI Puga on 02/09/24 16:53 UA Blood 1 Bryan/uL Last Edit by STEPHANI Puga on 02/09/24 16:53 UA Specific [place] 1.005 Last Edit by Jesusa BaljinderSTEPHANI bullard on 02/09/24 16: 53 UA Ketone Positive Last Edit by Jesuseliezer MorrisSTEPHANI on 02/09/24 16:53 UA Bilirubin 0 mg/dL Last Edit by Cortney CaceresGABIA on 02/09/24 16:53 UA Glucose 0 mg/dL Last Edit by Cortney CaceresSTEPHANI on 02/09/24 16:53 Results Reviewed Results Reviewed: Laboratory Last Values Hgb A1c (Clinic) 5.2 % (4.0-6.0) 02/09/24 14:12 Assessment and Plan Assessment & Plan (1) Type 2 diabetes mellitus with hyperglycemia: Code(s): E11.65 - Type 2 diabetes mellitus with hyperglycemia Plan: Decrease the amount of carbohydrate intake, pasta, bread, rice and potatoes are all sugar and that is aside from all the sweet stuff, remember that fruits are good but they are Sweet also. Hemoglobin A1c goal of less than 6.5. Patient takes glipizide 5 mg twice a day metformin 500 mg twice a day to his appetite prescription sent in. (2) Obesity: Code(s): E66.9 - Obesity, unspecified Plan: Diet and exercise noted weight loss. (3) Hypertension: Code(s): I10 - Essential (primary) hypertension Plan: Continue with blood pressure medication. Decrease salt intake and exercise takes lisinopril 40 mg once a day. (4) Hypercholesterolemia: Code(s): E78.00 - Pure hypercholesterolemia, unspecified Plan: Avoid fried foods, chicken skin, eggs, butter margarine, pastries and meat. Be it pork or beef they have a lot of cholesterol LDL goal of less than 100 and triglyceride of less than 150 on atorvastatin 10 mg once a day patient is reminded to get blood work done (5) Asthma: Code(s): J45.909 - Unspecified asthma, uncomplicated Plan: Patient is on albuterol inhaler (6) GERD (gastroesophageal reflux disease): Code(s): K21.9 - Gastro-esophageal reflux disease without esophagitis Qualifiers: Esophagitis presence: esophagitis presence not specified Qualified Code(s): K21.9 - Gastro-esophageal reflux disease without esophagitis Plan: Avoid the foods that causes that usually spicy foods, tomato products, juices, coffee, soda and foods that your sensitive to. After eating do not lie down, allow 3-4 hours before in lie down. And keep the head of bed above 30 degrees to avoid the acid from going up. (7) Tobacco abuse: Code(s): Z72.0 - Tobacco use Plan: Patient is strongly advised to stop smoking! (8) Recurrent major depression: Comment: Decline counseling July 2021 Code(s): F33.9 - Major depressive disorder, recurrent, unspecified Plan: Continue with present therapy. (9) Dysuria: Code(s): R30.0 - Dysuria Plan: urinalysis Orders: Orders AMB Hemoglobin A1c Today E11.65 - Type 2 diabetes mellitus with hyperglycemia AMB Urinalysis Automated Today R30.0 - Dysuria, Z13.9 - Encounter for screening, unspecified Referrals Orthopedics Referral M54.50 - Low back pain, unspecified Medications: New lidocaine 5% leave on most painful area for up to 12 hrs 2 patches topical DAILY 60 ea 1RF M54.50 - Low back pain, unspecified pregabalin 50 mg PO BID 60 caps 0RF M54.50 - Low back pain, unspecified Changed From tirzepatide 10 mg (0.5 mL) subcut QWEEK 30 days 2.5 mL 1RF E11.65 - Type 2 diabetes mellitus with hyperglycemia To tirzepatide 12.5 mg (0.5 mL) subcut QWEEK 2.5 mL 2RF 30 days E11.65 - Type 2 diabetes mellitus with hyperglycemia Discontinued glipizide Discontinued Reason: Doctor's Order 5 mg PO BID 180 tabs 1RF E11.65 - Type 2 diabetes mellitus with hyperglycemia tramadol Discontinued Reason: Doctor's Order 50 mg PO TID 30 days PRN 90 tabs 0RF pain M17.10 - Unilateral primary osteoarthritis, unspecified knee, M79.7 - Fibromyalgia Coding Level of Care Code Est Pt Level 4 (91112) Diagnoses Type 2 diabetes mellitus with hyperglycemia E11.65 Obesity E66.9 Hypertension I10 Hypercholesterolemia E78.00 Asthma J45.909 Gastroesophageal reflux disease, unspecified whether esophagitis present K21.9 Esophagitis presence: esophagitis presence not specified Tobacco abuse Z72.0 Recurrent major depression F33.9 Dysuria R30.0
[2024-02-09 14:15] VITALS: BP 136/70; PULSE 88; O2SAT 97; BMI 39.9
== END 2024-02-09 15:03 | disposition home or self-care (01) ==
PROVIDERS: PCP Internal Medicine; Visit Provider Internal Medicine
DX: E11.65 Type 2 diabetes mellitus with hyperglycemia (principal); I10 Essential (primary) hypertension; F33.9 Major depressive disorder, recurrent, unspecified; J45.909 Unspecified asthma, uncomplicated; R30.0 Dysuria; K21.9 Gastro-esophageal reflux disease without esophagitis; Z72.0 Tobacco use
CPT/HCPCS: 81003; 83036; 99214

== ENCOUNTER 2024-04-09 08:51 | Outpatient (REF) | payer OTHER, SELFPAY ==
[2024-04-09 10:12] LABS: MANUAL DIFF FLAG NO
[2024-04-09 10:23] LABS: Basophils Absolute Auto 0.1 X10*3/uL (0.0-0.2); Basophils Percent Auto 0.6 % (0-2); Eosinophils Absolute Auto 0.4 X10*3/uL (0.0-0.4); Eosinophils Percent Auto 3.9 % (0-4); Hematocrit 40.8 % (37.0-47.0); Hemoglobin 13.7 g/dl (12.0-16.0); Imm Gran Abs Auto 0.04 X10*3/uL (0.00-0.03); Imm Gran Pct Auto 0.4 % (0.0-0.4); Lymphocytes Absolute Auto 2.7 X10*3/uL (1.2-4.9); Lymphocytes Percent Auto 24.8 % (20-40); Mean Corpuscular HGB Conc 33.6 g/dl (31.0-35.0); Mean Corpuscular Volume 89.5 fL (80.0-98.0); Mean Platelet Volume 8.3 fL (9.4-12.3); Monocytes Absolute Auto 0.6 X10*3/uL (0.1-1.2); Monocytes Percent Auto 5.6 % (2-11); Neutrophils Percent Auto 64.7 % (45-73); Platelet Count 297 X10*3/uL (160-400); Red Blood Count 4.56 X10*6/uL (4.20-5.50); Red Cell Distribution Width 12.9 % (11.0-16.0); White Blood Count 10.7 X10*3/uL (4.8-10.8)
[2024-04-09 10:51] LABS: Estimated Average Glucose 105 mg/dL; Hemoglobin A1C 120.9735 umol/L; Hemoglobin A1c % 5.3 % (<6.0); Total Hemoglobin (HGBA1C) 3548.4099 umol/L
[2024-04-09 11:23] LABS: Creatinine Urine 33.92 mg/dL; Microalbumin Urine < 5.0 mg/L
[2024-04-09 11:37] LABS: Alanine Aminotransferase 14 U/L (0-31); Albumin Level 4.3 g/dL (3.5-5.0); Alkaline Phosphatase 55 U/L (39-117); Anion Gap 15 (12-20); Aspartate Amino Transferase 17 U/L (5-31); Bilirubin Total 0.4 mg/dL (0.0-1.0); Blood Urea Nitrogen 6 mg/dL (9-16); Carbon Dioxide 24 mmol/L (22-29); Chloride 104 mmol/L (96-108); Cholesterol 155 mg/dL (<200); Estimated Glomerular Filt Rate > 60; Glucose Random 104 mg/dL (60-115); HDL Cholesterol 33 mg/dL (>40); LDL Cholesterol Calculated 87 mg/dL (<100); Potassium 3.9 mmol/L (3.3-5.1); Sodium 139 mmol/L (135-145); Total Protein 7.9 g/dL (6.5-8.0); Triglycerides 176 mg/dL (<150)
[2024-04-09 11:48] LABS: Free T4 (Free Thyroxine) 0.94 ng/dL (0.71-1.85); Thyroid Stimulating Hormone 1.19 uIU/mL (0.32-4.0); Vitamin D 25-OH Total 44.7 ng/mL (>30)
[2024-04-09 11:56] LABS: Folate 9.1 ng/mL (> or = 4.0); Vitamin B12 927 pg/mL (200-900)
== END 2024-04-09 08:52 | disposition home or self-care (01) ==
LOC: HO.HMGCLDS 08:51
PROVIDERS: PCP Internal Medicine; Visit Provider Internal Medicine
DX: E78.00 Pure hypercholesterolemia, unspecified (principal); E11.65 Type 2 diabetes mellitus with hyperglycemia; E27.8 Other specified disorders of adrenal gland; L68.0 Hirsutism; K21.9 Gastro-esophageal reflux disease without esophagitis; K58.9 Irritable bowel syndrome, unspecified; R14.0 Abdominal distension (gaseous); K29.50 Unspecified chronic gastritis without bleeding; K59.01 Slow transit constipation; K29.80 Duodenitis without bleeding; K20.90 Esophagitis, unspecified without bleeding; K22.2 Esophageal obstruction; Z79.899 Other long term (current) drug therapy
CPT/HCPCS: 36415; 80053; 80061; 82043; 82306; 82570; 82607; 82746; 83036; 84439; 84443; 85025; 99202; 99212

== ENCOUNTER 2024-04-09 09:56 | Outpatient (AMB) | payer OTHER, SELFPAY ==
--- NOTE | 2024-04-09 09:59 | A.OFFVIS_ITS ---
Vital Signs 3 04/09/24 10:09 Height 5 ft 3 in Weight 222 lb 7.143 oz BMI 39.4 BP 140/86 H Blood Pressure Location Lt brachial Position Sitting Pulse 96 Pulse Source Pulse Oximeter Intake Visit Reasons: Other specified disorders of adrenal gland-conf Intake Note: New patient present today for Other specified disorders of adrenal gland office visit. Director Of Medical Education Required: No Accompanied by: Sister Allergies simvastatin Allergy (Unknown, Verified 04/09/24 10:13) Unknown sitagliptin [Januvia] Allergy (Unknown, Verified 04/09/24 10:13) nausea, vomits, cramps verapamil Allergy (Unknown, Verified 04/09/24 10:13) shortness of breath pioglitazone Adverse Reaction (Intermediate, Verified 04/09/24 10:13) Abdominal Pain Medication List - Last Reconciled 04/09/24 by Pooja Chi MD albuterol sulfate 90 mcg/actuation (Ventolin HFA) 2 puffs inhalation Q6H PRN aspirin 81 mg PO DAILY atorvastatin 10 mg PO DAILY baclofen 10 mg PO TID betamethasone, augmented 0.05 % 1 appl topical BID 7 days blood sugar diagnostic (FreeStyle Lite Strips) As directed check the blood sugar once a day blood-glucose meter (FreeStyle Lite Meter kit) check sugars once per day chlorhexidine gluconate 4% (Hibiclens) 1 appl topical .QOD 2 doses cyanocobalamin (vitamin B-12) 1,000 mcg PO DAILY lancets (FreeStyle Lancets) As directed check blood sugar once a day lansoprazole 30 mg PO DAILY lidocaine 5% 2 patches topical DAILY lisinopril 40 mg PO DAILY 30 days metformin 500 mg PO BID methylcellulose (laxative) (Citrucel) 1,000 mg (2 x 500 mg) PO DAILY metronidazole 500 mg PO BID 7 days nystatin 5 mL PO TID 7 days sennosides (Natural Senna Laxative) 17.2 mg (2 x 8.6 mg) PO BEDTIME sucralfate 1 g PO BID sumatriptan succinate 50 mg PO .QD PRN tirzepatide 12.5 mg (0.5 mL) subcut QWEEK 30 days tramadol 50 mg PO TID PRN 30 days HPI Comments Details: [age] year female here today for initial evaluation of adrenal incidentaloma. Her with sister Maday . Underwent MRI of the abdomen/pelvis in March 2024 which showed an incidental 1.7 cm left adrenal gland nodule. History of HTN , diagnosed in early 20s On lisinopril 40 mg daily , mostly blood pressure at 130 systolic Stroke in 1998 in her 20s . Generalised residual weakness from the stroke . No neurological deficits per patient. Has type 2 DM on metformin 500 BID and Mounjaro , a1c 5.2 % from summer 2023 and lost 50 lbs over the last 2 years or so since 2020 Reports easy bruising Reports weakness in legs when she goes up stairs No fractures Was told she has PCOS in her teens. LMP : 04/01/24 Regular monthly periods at least since 2014 , didnt have periods for 12 years before that Was told she was artie menopausal ? Was atrributed to PCOS ?? Pregnancies : 1 , had a misscarriage in 2019, TTC for many years but was unable to. Last US was 2022 pelivis right 1.5 cm ovarian cyst but no significant abnormality . She has diagnosis of Anti phospholipid syndrome. HAs hirsutism : facial hair, abdomen , back , nipples Reports milky discharge from skin boils on the nipples. Reports no increase in ring size or shoe size . Reports acne on back and chest. Reports excessive sweating. HEadaches are chronic and severe, Diagnosed with migraines on sumtriptan. Schedueled for steroid shot on May 082023, has had cortisone shots in the past in back , knees . Long time ago nothing recently. Sometimes usues hydrocortison creams not recently. Has used prednisone in the past multiple courses for asthma, pneumonia , nothing recentlyt. Was on betamethasone cream a month ago for vulvar irritation. Endorses loss of libido . Was sexually active when was alive. She also reports extensive history of skin infections. She also has hidradenitis suppurativa. Physical exam General: Facial rounding noted HEENT: normocephalic/atraumatic, has excessive facial hair Neck: supple, symmetrical, no thyromegaly , has dorsocervical or supraclavicular fat pads Cardiac: normal heart sounds Pulm: normal breath sounds B/L, no added breath sounds Abd: No purple striae noted, regular thin striae noted. Extremities: no edema, no signs of myxedema, does have some degree of proximal muscle weakness Skin: Multiple scarred over acne lesions noted. 2 Laboratory Tests 11/09/20 12/30/21 11/03/22 15:46 14:04 15:06 Potassium 4.4 4.4 4.3 Creatinine 0.69 Hgb A1c (Clinic) TSH 1.14 Free T4 0.93 02/09/24 14:12 Potassium Creatinine Hgb A1c (Clinic) 5.2 TSH Free T4 ? Imaging MRI from March 2023 [facility] Medical History (Updated 04/09/24 @ 10:55 by Pooja Chi MD) Hirsutism Morbid obesity Colon cancer screening Burning sensation of vulva Vulvar pain Hidradenitis suppurativa Acute bronchitis BRCA gene mutation negative Abdominal tenderness Acute vaginitis Smoking Fibromyalgia Pelvic pain in female At high risk for breast cancer GERD (gastroesophageal reflux disease) Migraine Asthma Vitamin B12 deficiency Vitamin D deficiency Anti-phospholipid syndrome PCOS (polycystic ovarian syndrome) Hypercholesterolemia Hypertension Type 2 diabetes mellitus with hyperglycemia Surgical History H/O oral surgery H/O colonoscopy H/O endoscopy Family History Mother Cervical cancer Maternal Aunt Breast cancer Cervical cancer Maternal Aunt Breast cancer Cervical cancer Maternal Aunt Cervical cancer Maternal Aunt Cervical cancer Social History Housing: Apartment Housing Other:: 2019 Alcohol intake: never Patient Tobacco Use Status: Current everyday Tobacco user Tobacco use type: Cigarette Cigarette Packs Per Day: 1.5 Cigarettes Per Day: 30 e-Cigarette/Vaping Use: Never Used Second Hand Smoke Exposure: Yes service: No Current occupational status: employed 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 No features described to suggest whether this is lipid rich or not. Our first concern is to be sure that this is not an adrenal cortical carcinoma. ?Fortunately adrenal cortical carcinomas are exceedingly rare. ?However they do carry with them a very poor prognosis.?Given his clinical history with no deterioration in overall health; I have low suspicion for adrenocortical carcinoma to start with. ?Our next step will be to repeat the imaging of his adrenal gland with?adrenal washout protocol to comment on Hounsfield units and washout. ?? ? Most adrenal masses are noncancerous or benign adrenal adenomas. ?However they can occasionally be functional and the hormones that are produced can cause clinical problems.??She has not been screened for any hormonal excess; although low clinical suspicion for pheochromocytoma; given the adrenal adenoma in question is greater than 1 cm and we currently do not have Hounsfield units reading on it; I will err on the side of caution and screen with plasma free metanephrines with blood work today. ? She does have a history of hypertension, from a very young age diagnosed in her 20s. Also has prior history of stroke. No history of hypokalemia. We will check aldosterone, plasma renin activity ? We will check a 1 mg overnight dexamethasone suppression test which she will prescribed. She does have type 2 diabetes mellitus, though well-controlled with recent weight loss on Mounjaro. Hypertension is also well-controlled. No history of fractures recently. However neck exam she does have proximal muscle weakness, she does have facial rounding, reports easy bruising, has history of skin infections, though she has used multiple courses of different modes of steroids in the past for back pain, knee pain, skin infections/lesions. She has also used multiple courses of prednisone in the past for asthma exacerbations and has had joint injections with steroids in the past. Some of her features could be excess exposure to cortisol from exogenous steroids over her lifetime. However no recent steroid use in the past month. She is also noted to have significant hirsutism, has had history of infertility, with 1 miscarriage in the past, and she reports she did not have a period for 12 years before the restarted in 2014. Now she has regular periods signs of possible hyperandrogenism, I will check her testosterone LH FSH, estradiol levels. ? Plan: -ordered baseline blood work -ordered 1 mg dexamethasone suppression test -ordered CT scan of the adrenal protocol -follow up in 6 weeks to discuss results (2) Hirsutism: Code(s): L68.0 - Hirsutism Category: Medical Plan: She is also noted to have significant hirsutism, has had history of infertility, with 1 miscarriage in the past, and she reports she did not have a period for 12 years before the restarted in 2014. Now she has regular periods signs of possible hyperandrogenism, I will check her testosterone LH FSH, estradiol levels. Ultrasound from 2022 of her ovaries did show an enlarged ovaries overall in volume of 11 cc. Right ovarian 1.5 cm cyst also noted but no other obvious abnormality. Plan I spent 45 minutes in reviewing the record, seeing the patient and documenting in the medical record. Orders: Orders 2 CT adrenal wo/w IV con Today E27.8 - Other specified disorders of adrenal gland, L68.0 - Hirsutism Aldosterone Today E27.8 - Other specified disorders of adrenal gland, L68.0 - Hirsutism Renin Today E27.8 - Other specified disorders of adrenal gland, L68.0 - Hirsutism DHEA Sulfate Today E27.8 - Other specified disorders of adrenal gland, L68.0 - Hirsutism Metanephrines, Plasma Today E27.8 - Other specified disorders of adrenal gland, L68.0 - Hirsutism 17 Hydroxyprogesterone Today E27.8 - Other specified disorders of adrenal gland, L68.0 - Hirsutism Lutenizing Hormone Today E27.8 - Other specified disorders of adrenal gland, L68.0 - Hirsutism Follicle Stimulating Hormone Today E27.8 - Other specified disorders of adrenal gland, L68.0 - Hirsutism Adrenocorticotropic Hormone 04/15/24 E27.8 - Other specified disorders of adrenal gland Cortisol Random 04/15/24 E27.8 - Other specified disorders of adrenal gland Dexamethasone 04/15/24 E27.8 - Other specified disorders of adrenal gland Adrenocorticotropic Hormone Today E27.8 - Other specified disorders of adrenal gland, L68.0 - Hirsutism Cortisol Random Today E27.8 - Other specified disorders of adrenal gland, L68.0 - Hirsutism Basic Metabolic Panel Today E27.8 - Other specified disorders of adrenal gland, L68.0 - Hirsutism Prolactin Today E27.8 - Other specified disorders of adrenal gland, L68.0 - Hirsutism Testosterone, Free/Total Today E27.8 - Other specified disorders of adrenal gland, L68.0 - Hirsutism Androstenedione Today E27.8 - Other specified disorders of adrenal gland, L68.0 - Hirsutism Estradiol Ultra Sensitive Today E27.8 - Other specified disorders of adrenal gland, L68.0 - Hirsutism Medications: New 2 dexamethasone Take at 11 pm at night and go for blood work next day at 8 AM 1 mg PO DAILY 1 tab 0RF Patient Instructions: Do blood work this week at 8 AM Do another set of blood work next week separately Dexamethasone suppression test I would like you to do a dexamethasone suppression test to rule out Cushings syndrome. You will take a 1 mg pill of dexamethasone at 11 PM and then have a blood draw for cortisol at 8AM the next morning. It is important to make sure you take the dexamethasone at 11 PM and have the blood test as close to 8AM as possible. Do CT scan Coding Level of Care Code New Pt Level 4 (06054) Diagnoses Left adrenal mass E27.8 Hirsutism L68.0 Time Spent (min) 45
[2024-04-09 10:09] VITALS: BP 140/86; PULSE 96; BMI 39.4
== END 2024-04-09 11:02 | disposition home or self-care (01) ==
LOC: HO.ENCR 09:56
PROVIDERS: PCP Internal Medicine; Visit Provider Student in an Organized Health Care Education/Training Program
DX: E27.8 Other specified disorders of adrenal gland (principal); L68.0 Hirsutism
CPT/HCPCS: 99204

== ENCOUNTER 2024-04-09 11:42 | Outpatient (AMB) | payer OTHER, SELFPAY ==
[2024-04-09 12:01] VITALS: BMI 39.3
--- NOTE | 2024-04-09 12:01 | MHC.OFFVIS ---
Vital Signs 04/09/24 12:01 Height 5 ft 3 in Weight 222 lb BMI 39.3 Intake Visit Reasons: 6 month follow up Intake Note: Relevant Flags or Indicators ? 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 Elsa Neema presents in office today for a scheduled 6 mos FUV. CC; No recent labs, diagnostics, or med orders placed. Pt reports that they have been seeing Dr. Enriquez for adrenal related concerns. Pt has had a MRI and is waiting for CT. Pt did have recent labs per Dr. Enriquez as well. ? Relevant GI Sx as reported per pt? Nausea ? Reflux ? Dysphagia / Painful Swallowing ? Fecal abnormalities o?? Constipation o?? Diarrhea ? Abdominal Pain o?? Generalized throughout but worse in the B/L Upper Quadrants. ? Early satiety ? Bloating ? Abdominal distention ? Hx of any recent surgeries? 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 Avoid dietary triggers and late night snacking. Eating smaller meals and more often. Continue sucralfate twice a day. Patient can continue taking Citrucel 2 tablets daily. Not always feeling like she empties her bowels completely will start her on senna at bedtime. Patient will return in March she will be due to go for colonoscopy after April. Patient did have suboptimal prep last colonoscopy. Most likely she will be sent for upper endoscopy. Avoid dietary triggers and late night snacking. Staying upright for minimum 3 hours after meals discussed with patient. Patient is agreeable to this plan and verbalizes understanding of instructions. She was given the opportunity to ask questions and all questions answered. ? Thank you for allowing me to participate in her care Medications New esomeprazole magnesium (Nexium) 40 mg PO DAILY 30 caps 5RF K21.9 sennosides (Natural Senna Laxative) 17.2 mg (2 x 8.6 mg) PO BEDTIME 60 tabs 3RF constipation K59.00 Discontinued lansoprazole Discontinued Reason: Doctor's Order 30 mg PO DAILY 90 caps 1RF K21.9 TODAY'S VISIT Patient is here today for follow-up. Patient is frustrated and upset as she found out that she has a mass on her adrenal gland. Was found incidentally by MRI. Patient has seen nurse infection control and lots of blood work has been ordered as well as CT of abdomen to re-evaluate the mass. Patient is little stressed out. She continues to have epigastric pain postprandially and occasional dyspepsia with dysphagia without odynophagia. Patient reports that she has postprandial abdominal bloating with occasional loose stools. Patient then feels like she is constipated. Uses senna on as-needed basis. Patient reports occasional nausea, no vomiting. Patient reports that she noticed increased facial hair that she has been discussing with Dr. Chi in endocrinology. Patient will do dexamethasone test as well as multiple different testing to rule out PCOS and other hormonal dysfunctions. Patient reports that she is taking Mounjaro and she is doing well. We did talk about that some of her symptoms of epigastric pain, early satiety can be related to the medication. The medication is to make patient feel full so she eat smaller meals and more often. [facility] Medical History Hirsutism Morbid obesity Colon cancer screening Burning sensation of vulva Vulvar pain Hidradenitis suppurativa Acute bronchitis BRCA gene mutation negative Abdominal tenderness Acute vaginitis Smoking Fibromyalgia Pelvic pain in female At high risk for breast cancer GERD (gastroesophageal reflux disease) Migraine Asthma Vitamin B12 deficiency Vitamin D deficiency Anti-phospholipid syndrome PCOS (polycystic ovarian syndrome) Hypercholesterolemia Hypertension Type 2 diabetes mellitus with hyperglycemia Surgical History H/O oral surgery H/O colonoscopy H/O endoscopy Family History Mother Cervical cancer Maternal Aunt Breast cancer Cervical cancer Maternal Aunt Breast cancer Cervical cancer Maternal Aunt Cervical cancer Maternal Aunt Cervical cancer Social History Housing: Apartment Housing Other:: 2019 Alcohol intake: never Patient Tobacco Use Status: Current everyday Tobacco user Tobacco use type: Cigarette Cigarette Packs Per Day: 1.5 Cigarettes Per Day: 30 e-Cigarette/Vaping Use: Never Used Second Hand Smoke Exposure: Yes service: No Current occupational status: employed 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 Cognitive needs: No Hearing needs: No Vision needs: Yes (Glasses) Review of Systems Const Denies weight gain and Denies weight loss ENT Reports no additional complaints, Reports dysphagia (Occasional) and Denies odynophagia Card Reports no additional complaints Resp Reports no additional complaints GI Denies abdominal pain, Denies belching, Denies melena, Reports bloating, Denies change in bowel habits, Reports constipation, Reports dysphagia (Occasional), Denies excessive flatus, Reports dyspepsia (Occasional), Reports heartburn (Occasional), Denies diarrhea, Reports loose stools, Denies nausea, Denies odynophagia and Denies vomiting Reports no additional complaints Musc Reports no additional complaints Neuro Reports no additional complaints Psych Reports no additional complaints Endo Reports no additional complaints Physical Exam Vital Signs: BMI result Body Mass Index 39.3 Const General: healthy appearing and no acute distress Nutritional Appearance: obese Orientation/consciousness: patient oriented x3 Resp Effort & Inspection: normal respiratory effort, able to speak in complete sentences, no tracheal deviation and symmetric chest movement Auscultation: clear to auscultation bilaterally Cardio Rate: regular rate Heart sounds: S1 normal heart sound present and S2 normal heart sound present GI Inspection: Yes normal to inspection, No distended and Yes obesity Palpation (GI): Soft to palpation, not firm, nontender and No hepatosplenomegaly present Auscultation: normal bowel sounds General: Yes no CVA tenderness Back/Spine/Pelvis Back: no CVA tenderness Skin General skin exam: elasticity normal, turgor normal and dry skin Neuro General: patient oriented x3 Psych Appearance: grossly normal Mental Status: mental status grossly normal Assessment & Plan Assessment & Plan (1) GERD (gastroesophageal reflux disease): Code(s): K21.9 - Gastro-esophageal reflux disease without esophagitis Category: Medical Qualifiers: Esophagitis presence: esophagitis presence not specified Qualified Code(s): K21.9 - Gastro-esophageal reflux disease without esophagitis (2) IBS (irritable bowel syndrome): Code(s): K58.9 - Irritable bowel syndrome, unspecified Qualifiers: Irritable bowel syndrome type: with both diarrhea and constipation Qualified Code(s): K58.2 - Mixed irritable bowel syndrome (3) Postprandial abdominal bloating: Code(s): R14.0 - Abdominal distension (gaseous) (4) Gastritis: Code(s): K29.70 - Gastritis, unspecified, without bleeding Qualifiers: Chronicity: chronic Gastritis bleeding: without bleeding Gastritis type: unspecified gastritis Qualified Code(s): K29.50 - Unspecified chronic gastritis without bleeding (5) Duodenitis: Code(s): K29.80 - Duodenitis without bleeding (6) Esophagitis: Code(s): K20.90 - Esophagitis, unspecified without bleeding (7) Schatzki's ring: Code(s): K22.2 - Esophageal obstruction (8) Constipation: Code(s): K59.00 - Constipation, unspecified Qualifiers: Constipation type: slow transit constipation Qualified Code(s): K59.01 - Slow transit constipation Plan Patient feels like lansoprazole it is helping, however she continues to have acid reflux and epigastric pain postprandially. Patient was instructed to eat smaller meals and more often she is on Mounjaro, that is slows down the gastric motility somewhat. Patient has can do very well if they do smaller portions and eat more often. Also moving her bowels will help her with dose symptoms of feeling full very quickly after meals. Take Dulcolax tablets daily to help her feel like she empties better. Proctosol for hemorrhoids. Increase fluid intake and activity to promote better bowel motility. Patient will follow-up in the office in 3-4 months, sooner on as needed basis. We will need to discuss her going for neither colonoscopy. She is agreeable to this plan and verbalizes understanding of instructions. She was given the opportunity to ask questions and all questions answered. Thank you for allowing me to participate in her care Medications: New hydrocortisone 2.5% (Proctosol HC) 1 appl MT BID-QID PRN 30 grams 2RF hemorrhoids K64.9 - Unspecified hemorrhoids bisacodyl (Dulcolax (bisacodyl)) 10 mg (2 x 5 mg) PO BEDTIME 180 tabs 4RF Refilled lansoprazole 30 mg PO DAILY 30 caps 3RF K21.9 - Gastro-esophageal reflux disease without esophagitis Discontinued nystatin Swish and swallow Discontinued Reason: Patient Refused 5 mL PO TID 7 days 105 mL 0RF B37.0 - Candidal stomatitis metronidazole Take with food, Avoid alcohol and vinegar products Discontinued Reason: Doctor's Order 500 mg PO BID 7 days 14 tabs 0RF sennosides Discontinued Reason: Doctor's Order 17.2 mg (2 x 8.6 mg) PO BEDTIME 60 tabs 3RF constipation K59.00 - Constipation, unspecified Coding Level of Care Code Est Pt Level 4 (40573) Diagnoses Gastroesophageal reflux disease, unspecified whether esophagitis present K21.9 Esophagitis presence: esophagitis presence not specified Irritable bowel syndrome with both constipation and diarrhea K58.2 Irritable bowel syndrome type: with both diarrhea and constipation Postprandial abdominal bloating R14.0 Chronic gastritis without bleeding, unspecified gastritis type K29.50 Chronicity: chronic Gastritis bleeding: without bleeding Gastritis type: unspecified gastritis Duodenitis K29.80 Esophagitis K20.90 Schatzki's ring K22.2 Slow transit constipation K59.01 Constipation type: slow transit constipation Time Spent (min) 35 Comment 20 minutes spent with patient and additional 15 minutes spent reviewing her records
== END 2024-04-09 13:05 | disposition home or self-care (01) ==
PROVIDERS: PCP Internal Medicine; Visit Provider Nurse Practitioner Family
DX: K21.9 Gastro-esophageal reflux disease without esophagitis (principal); K58.2 Mixed irritable bowel syndrome; R14.0 Abdominal distension (gaseous); K29.50 Unspecified chronic gastritis without bleeding; K29.80 Duodenitis without bleeding; K20.90 Esophagitis, unspecified without bleeding; K22.2 Esophageal obstruction; K59.01 Slow transit constipation
CPT/HCPCS: 99214

== ENCOUNTER 2024-04-12 15:53 | Outpatient (REF) | payer OTHER, SELFPAY | END 2024-04-12 15:54 | disposition home or self-care (01) | LOC: HO.US 15:53 | PROVIDERS: PCP Internal Medicine; Visit Provider Internal Medicine | DX: N94.9 Unspecified condition associated with female genital organs and menstrual cycle (principal) | CPT/HCPCS: 76830; 76856 ==

== ENCOUNTER 2024-04-16 07:49 | Outpatient (REF) | payer OTHER, SELFPAY ==
[2024-04-16 09:12] LABS: Anion Gap 14 (12-20); Blood Urea Nitrogen 14 mg/dL (9-16); Calcium 10.1 mg/dL (8.4-10.2); Carbon Dioxide 23 mmol/L (22-29); Chloride 105 mmol/L (96-108); Estimated Glomerular Filt Rate > 60; Glucose Random 105 mg/dL (60-115); Potassium 3.6 mmol/L (3.3-5.1); Sodium 138 mmol/L (135-145)
[2024-04-16 09:34] LABS: Cortisol Random 4.9 ug/dL
[2024-04-18 00:38] LABS: DHEA Sulfate 66 mcg/dL (15-205); Follicle Stimulating Hormone 7.1 mIU/mL; Lutenizing Hormone 4.8 mIU/mL; Prolactin 8.2 ng/mL
[2024-04-21 12:33] LABS: Renin 3.87 ng/mL/h (0.25-5.82)
[2024-04-21 13:14] LABS: Adrenocorticotropic Hormone 11 pg/mL (6-50)
[2024-04-21 18:33] LABS: Testosterone, Free 2.4 pg/mL (0.1-6.4); Testosterone, Total 18 ng/dL (2-45)
[2024-04-23 01:14] LABS: Estradiol Ultra Sensitive 62 pg/mL
[2024-04-24 15:44] LABS: Metanephrine, Free <25 pg/mL (<=57); Normetanephrines, Free 42 pg/mL (<=148); Total Metanephrine, Free 42 pg/mL (<=205)
[2024-04-25 11:48] LABS: Dexamethasone <20 ng/dL
[2024-04-25 15:18] LABS: Androstenedione 65 ng/dL
== END 2024-04-16 07:50 | disposition home or self-care (01) ==
LOC: HO.LAB 07:49
PROVIDERS: PCP Internal Medicine; Visit Provider Student in an Organized Health Care Education/Training Program
DX: E27.8 Other specified disorders of adrenal gland (principal); L68.0 Hirsutism
CPT/HCPCS: 36415; 80048; 80299; 82024; 82088; 82157; 82533; 82627; 82670; 83001; 83002; 83498; 83835; 84146; 84244; 84402; 84403

== ENCOUNTER 2024-04-19 07:16 | Outpatient (REF) | payer OTHER, SELFPAY ==
[2024-04-19 08:17] LABS: Appearance Urine Clear; Color Urine Yellow; Glucose Urine UA Negative (Negative); Leukocyte Esterase Urine Trace (Negative); Nitrite Urine Negative (Negative); PH 6.5 (5.0-9.0); Specific Gravity - Urine 1.015 (1.005-1.025); UMIC TRIGGER UACC YES; Urine Blood Negative (Negative); Urine Ketones Negative (Negative); Urine Protein Negative (Neg-Trace)
[2024-04-19 08:22] LABS: Bacteria Urine None Seen (None Seen); Hyaline Casts Urine 0-2 /LPF (0-2); RBC Urine 0-2 /HPF (0-2); Squamous Epithelial Cell Urine 0-2 /HPF (0-2); WBC Urine 0-5 /HPF (0-5)
[2024-04-19 08:27] LABS: Cortisol Random 1.8 ug/dL
[2024-04-19 08:40] LABS: Creatinine Urine 70.79 mg/dL
[2024-04-26 21:03] LABS: Adrenocorticotropic Hormone <5 pg/mL (6-50)
== END 2024-04-19 07:17 | disposition home or self-care (01) ==
LOC: HO.LAB 07:16
PROVIDERS: Internal Medicine; Visit Provider Student in an Organized Health Care Education/Training Program
DX: E27.8 Other specified disorders of adrenal gland (principal); L68.0 Hirsutism; E11.65 Type 2 diabetes mellitus with hyperglycemia; E78.00 Pure hypercholesterolemia, unspecified
CPT/HCPCS: 36415; 81001; 82024; 82533; 82570

== ENCOUNTER 2024-05-10 13:56 | Outpatient (AMB) | payer OTHER, SELFPAY ==
--- NOTE | 2024-05-10 14:13 | A.OFFPC_ITS ---
Vital Signs 05/10/24 14:14 Height 5 ft 3 in Weight 219 lb 8 oz BMI 38.9 BP 136/80 Blood Pressure Location Lt brachial Position Sitting Pulse 90 Pulse Source Pulse Oximeter Pulse Oximetry (%) 99 Oxygen Delivery Method Room Air Intake Visit Reasons: 3M Follow Up Intake Note: Patient is here to follow up on DM, Asthma, HTN. Pt decline flu shot today. Clinical Services Manager Required: No Machine Sand Mixer: Not Required per policy Accompanied by: Self / Same As Patient Allergies simvastatin Allergy (Unknown, Verified 05/10/24 14:14) Unknown sitagliptin [Januvia] Allergy (Unknown, Verified 05/10/24 14:14) nausea, vomits, cramps verapamil Allergy (Unknown, Verified 05/10/24 14:14) shortness of breath pioglitazone Adverse Reaction (Intermediate, Verified 05/10/24 14:14) Abdominal Pain Medication List - Last Reconciled 05/10/24 by Marely Gibbons, albuterol sulfate 90 mcg/actuation (Ventolin HFA) 2 puffs inhalation Q6H PRN aspirin 81 mg PO DAILY atorvastatin 10 mg PO DAILY baclofen 10 mg PO TID betamethasone, augmented 0.05 % 1 appl topical BID 7 days bisacodyl (Dulcolax (bisacodyl)) 10 mg (2 x 5 mg) PO BEDTIME blood sugar diagnostic (FreeStyle Lite Strips) As directed check the blood sugar once a day blood-glucose meter (FreeStyle Lite Meter kit) check sugars once per day chlorhexidine gluconate 4% (Hibiclens) 1 appl topical .QOD 2 doses cyanocobalamin (vitamin B-12) 1,000 mcg PO DAILY dexamethasone 1 mg PO DAILY hydrocortisone 2.5% (Proctosol HC) 1 appl RI BID-QID PRN lactulose 20 grams (30 mL) PO BID lancets (FreeStyle Lancets) As directed check blood sugar once a day lansoprazole 30 mg PO DAILY lidocaine 5% 2 patches topical DAILY lisinopril 40 mg PO DAILY 30 days metformin 500 mg PO BID methylcellulose (laxative) (Citrucel) 1,000 mg (2 x 500 mg) PO DAILY sucralfate 1 g PO BID sumatriptan succinate 50 mg PO .QD PRN tirzepatide 12.5 mg (0.5 mL) subcut QWEEK 30 days tramadol 50 mg PO TID PRN 30 days Tobacco use date assessed: 05/10/24 Dental Screening Dental Screen Date: 08/10/23 HPI 3M Follow Up HPI Details The patient is a 49-year-old female presenting with constipation and rectal pain, along with follow-up on her chronic conditions. She has a history of type 2 diabetes mellitus, hypertension, obesity, hypercholesterolemia, asthma, GERD, IBS, duodenitis, and major depressive disorder. The patient's bowel issues, including constipation and a burning sensation in the rectum, have been ongoing. She has experienced severe difficulty in passing stools despite using Docusate and trying dietary changes such as prunes and apple juice, with little success. She reports using hemorroidal cream without relief. Recently, she was advised to try lactulose to relieve constipation. The patient underwent a pelvic ultrasound recently, which was followed by a week of bleeding. Her GERD is being managed with lansoprazole, advised to eat smaller portions more frequently. The patient has been on tirzepatide (Mounjaro) for its impact on gastric motility and her weight. She reports a weight loss but did complain about constipation, noted as a potential side effect. She previously stopped pregabalin due to intolerable side effects. She had lumbar spondylosis with radiculopathy diagnosed in March 2024, treated with an intralaminal injection at L4-L5, causing pain from spine to head. The patient was evaluated by endocrinology for an adrenal nodule discovered via MRI, with an incidental finding of a 17 mm lesion. Functionality was assessed via a 1 mg dexamethasone suppression test. Further assessment included serum testosterone, LH, FSH, and estradiol. A CAT scan with adrenal protocol had been arranged. The patient is a smoker and was advised regarding the health impacts. No psychiatric follow-up is being undertaken currently despite the presence of depression. - Discussed flu vaccination: patient dec lined due to previous adverse reactions. - Emphasis on increased fluid intake and dietary fiber to alleviate constipation. - Ongoing weight management with tirzepa tide. - Encouragement to quit smoking. - Obese and current smoker. - Reports issues with diet inclusive of difficulty with bowel movements. - Recently stopped medications with side effects: pregabalin. - Gastrointestinal: Reports difficulty w ith bowel movements, burning rectal pain. - Neurological: Reports pain radiating u p spine into head after lumbar injection. - MRI showed incidental adrenal nodule. - Recent pelvic ultrasound results pendi [facility] Medical History Hirsutism Morbid obesity Colon cancer screening Burning sensation of vulva Vulvar pain Hidradenitis suppurativa Acute bronchitis BRCA gene mutation negative Abdominal tenderness Acute vaginitis Smoking Fibromyalgia Pelvic pain in female At high risk for breast cancer GERD (gastroesophageal reflux disease) Migraine Asthma Vitamin B12 deficiency Vitamin D deficiency Anti-phospholipid syndrome PCOS (polycystic ovarian syndrome) Hypercholesterolemia Hypertension Type 2 diabetes mellitus with hyperglycemia Surgical History H/O oral surgery H/O colonoscopy H/O endoscopy Family History Mother Cervical cancer Maternal Aunt Breast cancer Cervical cancer Maternal Aunt Breast cancer Cervical cancer Maternal Aunt Cervical cancer Maternal Aunt Cervical cancer Social History Housing: Apartment Housing Other:: 2019 Alcohol intake: never Patient Tobacco Use Status: Current everyday Tobacco user Tobacco use type: Cigarette Cigarette Packs Per Day: 1.5 Cigarettes Per Day: 30 e-Cigarette/Vaping Use: Never Used Second Hand Smoke Exposure: Yes service: No Current occupational status: employed 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 Lex Claudio, Maday Greenfield, Aaron Baxter and colleagues, with an educational luz maria from [employer]. Physical exam (Primary Care) Vital Signs: Last Vital Signs Pulse 90 05/10/24 14:14 BP 136/80 05/10/24 14:14 Pulse Ox 99 05/10/24 14:14 Oxygen Delivery Method Room Air 05/10/24 14:14 BMI result Body Mass Index 38.9 Tobacco/Smoking Status: Tobacco use Status Tobacco use date assessed 05/10/24 05/10/24 14:18 Patient Tobacco Use Status Current everyday Tobacco 05/10/24 14:18 Tobacco use type Cigarette 05/10/24 14:18 e-Cigarette/Vaping Use Never Used 05/10/24 14:18 Thrive Assessment: Date of Thrive Assessment Date Thrive assessed 08/10/23 05/10/24 14:18 Const General: alert; No acute distress Eyes Conjunctivae: conjunctivae normal Resp Auscultation: clear to auscultation bilaterally Cardio Rate: regular rate Rhythm: regular rhythm GI Inspection: Yes normal to inspection Extrem General: Yes normal to inspection and No edema Coding Level of Care Code Est Pt Level 4 (28586) Complex EM visit Add On G2211 Diagnoses Left adrenal mass E27.8 Hirsutism L68.0 Type 2 diabetes mellitus with hyperglycemia, without long-term current use of insulin E11.65 Diabetes mellitus halfway insulin use: without halfway use Class 2 severe obesity due to excess calories with serious comorbidity and body mass index (BMI) of 39.0 to 39.9 in adult E66.812; E66.01; Z68.39 Body mass index: BMI 39.0-39.9 Obesity classification: adult class 2 (BMI 35 - 39.9) Obesity type: due to excess calories Serious obesity comorbidity presence: with serious comorbidity Primary hypertension I10 Hypertension type: primary hypertension Hypercholesterolemia E78.00 Asthma J45.909 Gastroesophageal reflux disease, unspecified whether esophagitis present K21.9 Esophagitis presence: esophagitis presence not specified Tobacco abuse Z72.0 Moderate episode of recurrent major depressive disorder F33.1 Active/Remission status: currently active Major depression episode severity: moderate Chronic low back pain without sciatica, unspecified back pain laterality M54.50; G89.29 Back pain laterality: unspecified Chronicity: chronic Sciatica presence: without sciatica Slow transit constipation K59.01 Constipation type: slow transit constipation Assessment & Plan Assessment & Plan (1) Left adrenal mass: Code(s): E27.8 - Other specified disorders of adrenal gland Category: Medical Plan: Patient is being followed up by Endocrinology (2) Hirsutism: Code(s): L68.0 - Hirsutism Category: Medical Plan: Patient is being followed up by Endocrinology (3) Type 2 diabetes mellitus with hyperglycemia: Code(s): E11.65 - Type 2 diabetes mellitus with hyperglycemia Category: Medical Qualifiers: Diabetes mellitus dedicated intermodal 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 Hemoglobin A1c goal of less than 6.5. Patient is under control on metformin and Mounjaro (4) Obesity: Code(s): E66.9 - Obesity, unspecified Category: Medical Qualifiers: Body mass index: BMI 39.0-39.9 Obesity classification: adult class 2 (BMI 35 - 39.9) Obesity type: due to excess calories Serious obesity comorbidity presence: with serious comorbidity Qualified Code(s): E66.812 - Obesity, class 2; E66.01 - Morbid (severe) obesity due to excess calories; Z68.39 - Body mass index [BMI] 39.0-39.9, adult Plan: Diet and exercise (5) Hypertension: Code(s): I10 - Essential (primary) hypertension Category: Medical Qualifiers: Hypertension type: primary hypertension Qualified Code(s): I10 - Essential (primary) hypertension Plan: Continue with blood pressure medication. Decrease salt intake and exercise patient takes lisinopril 40 mg once a day (6) Hypercholesterolemia: Code(s): E78.00 - Pure hypercholesterolemia, unspecified Category: Medical Plan: Avoid fried foods, chicken skin, eggs, butter margarine, pastries and meat. Be it pork or beef they have a lot of cholesterol LDL goal of less than 100 on atorvastatin 10 mg once a day (7) Asthma: Code(s): J45.909 - Unspecified asthma, uncomplicated Category: Medical Plan: Continue with albuterol inhaler as needed and advised to stop smoking! (8) GERD (gastroesophageal reflux disease): Code(s): K21.9 - Gastro-esophageal reflux disease without esophagitis Category: Medical Qualifiers: Esophagitis presence: esophagitis presence not specified Qualified Code(s): K21.9 - Gastro-esophageal reflux disease without esophagitis Plan: Avoid the foods that causes that usually spicy foods, tomato products, juices, coffee, soda and foods that your sensitive to. After eating do not lie down, allow 3-4 hours before in lie down. And keep the head of bed above 30 degrees to avoid the acid from going up. On lansoprazole (9) Tobacco abuse: Code(s): Z72.0 - Tobacco use Category: Medical Plan: Patient is strongly advised to stop smoking (10) Recurrent major depression: Comment: Decline counseling July 2021 Code(s): F33.9 - Major depressive disorder, recurrent, unspecified Category: Medical Qualifiers: Active/Remission status: currently active Major depression episode severity: moderate Qualified Code(s): F33.1 - Major depressive disorder, recurrent, moderate Plan: Discussion about counseling and therapy but patient has declined (11) Low back pain: Code(s): M54.50 - Low back pain, unspecified Category: Medical Qualifiers: Back pain laterality: unspecified Chronicity: chronic Sciatica presence: without sciatica Qualified Code(s): M54.50 - Low back pain, unspecified; G89.29 - Other chronic pain Plan: Patient has seen [facility] and intraluminal injection done between L4-L5 (12) Constipation: Code(s): K59.00 - Constipation, unspecified Category: Medical Qualifiers: Constipation type: slow transit constipation Qualified Code(s): K59.01 - Slow transit constipation Plan: Three rules for constipation 1. Diet need to have a high fiber diet less of meat 2. Increase oral fluids 3. Exercise Plan - For constipation: Start lactulose, increase hydration and dietary fiber intake. - For lumbar radiculopathy: Monitor symptoms, assess for efficacy of injection. - For adrenal nodule: Await functionality studies, proceed with CAT scan as planned. - For GERD, IBS, and duodenitis: Continue current medication regimen. - Monitor glucose levels and lipid profile due to chronic health conditions. I discussed with the patient the complexity of her chronic conditions and the current management strategies, noting the importance of monitoring her blood glucose and lipid profile regularly. We explored treatment options for her gastrointestinal and lumbar spine issues, with emphasis on adequate hydration and fiber intake to manage constipation, likely exacerbated by her current diabetes medications. Potential side effects of treatments were reviewed. The importance of smoking cessation was discussed given overall health benefits. Advised continuation of endocrinological assessment for adrenal nodular lesion, with further imaging anticipated. We reviewed the outcome of the recent lumbar injection and its ineffectiveness in managing radiculopathy symptoms, with a need to reevaluate pain management strategies. Future appointments and diagnostic results were acknowledged, with action points to follow upon receipt of pending results. - Start lactulose as directed for constipation. - Ensure adequate water intake and a high-fiber diet. - Continue current medication regimen for GERD, asthma, and diabetes. - Monitor symptoms post-injection for back pain. - Follow up on pending test results for adrenal evaluation. - Avoid flu vaccine if previously experienced adverse effects. - Maintain weight management regimen with tirzepatide. Medications: New lactulose 20 grams (30 mL) PO BID 600 mL 0RF K59.00 - Constipation, unspecified
[2024-05-10 14:14] VITALS: BP 136/80; PULSE 90; O2SAT 99; BMI 38.9
== END 2024-05-10 14:54 | disposition home or self-care (01) ==
PROVIDERS: PCP Internal Medicine; Visit Provider Internal Medicine
DX: E11.65 Type 2 diabetes mellitus with hyperglycemia (principal); E66.01 Morbid (severe) obesity due to excess calories; E27.8 Other specified disorders of adrenal gland; F33.1 Major depressive disorder, recurrent, moderate; Z68.39 Body mass index [BMI] 39.0-39.9, adult; L68.0 Hirsutism; I10 Essential (primary) hypertension; E78.00 Pure hypercholesterolemia, unspecified; J45.909 Unspecified asthma, uncomplicated; K21.9 Gastro-esophageal reflux disease without esophagitis; Z72.0 Tobacco use; M54.50 Low back pain, unspecified

== ENCOUNTER → 2024-05-10 13:56 | Outpatient (BNVA) | payer OTHER, SELFPAY | PROVIDERS: PCP Internal Medicine; Visit Provider Internal Medicine | DX: E27.8 Other specified disorders of adrenal gland (principal); L68.0 Hirsutism; E11.65 Type 2 diabetes mellitus with hyperglycemia; E66.01 Morbid (severe) obesity due to excess calories; Z68.39 Body mass index [BMI] 39.0-39.9, adult; I10 Essential (primary) hypertension; E78.00 Pure hypercholesterolemia, unspecified; J45.909 Unspecified asthma, uncomplicated; K21.9 Gastro-esophageal reflux disease without esophagitis; F33.1 Major depressive disorder, recurrent, moderate; M54.50 Low back pain, unspecified; G89.29 Other chronic pain; K59.01 Slow transit constipation; Z72.0 Tobacco use | CPT/HCPCS: 99212 ==

== ENCOUNTER 2024-07-03 10:07 | Outpatient (AMB) | payer OTHER, SELFPAY ==
--- NOTE | 2024-07-03 10:16 | A.OFFVIS_ITS ---
Vital Signs 07/03/24 10:25 BP 132/76 Intake Visit Reasons: US results Typewriter Assembler: Typewriter Assembler Present Allergies simvastatin Allergy (Unknown, Verified 07/03/24 10:18) Unknown sitagliptin [Januvia] Allergy (Unknown, Verified 07/03/24 10:18) nausea, vomits, cramps verapamil Allergy (Unknown, Verified 07/03/24 10:18) shortness of breath pioglitazone Adverse Reaction (Intermediate, Verified 07/03/24 10:18) Abdominal Pain Is last menstrual period known: Yes HPI Comments Details: Patient is here today for a follow up ultrasound referred by her PCP due to US findings, she is accompanied by her sister Maday. She reports unscheduled bleeding after the ultrasound was performed which she reports was very painful, additionally she has the last cycle noted much longer than her normal. Sees [facility] for her chronic back pain extending to lower buttocks. Has a Endocrine follow up for the adrenal gland concerns. Additionally she reports she has been canceled [address] Mckeon at [place], for her evaluation of vulvar burning and pain discomfort. [facility] Medical History Hirsutism Morbid obesity Colon cancer screening Burning sensation of vulva Vulvar pain Hidradenitis suppurativa Acute bronchitis BRCA gene mutation negative Abdominal tenderness Acute vaginitis Smoking Fibromyalgia Pelvic pain in female At high risk for breast cancer GERD (gastroesophageal reflux disease) Migraine Asthma Vitamin B12 deficiency Vitamin D deficiency Anti-phospholipid syndrome PCOS (polycystic ovarian syndrome) Hypercholesterolemia Hypertension Type 2 diabetes mellitus with hyperglycemia Surgical History H/O oral surgery H/O colonoscopy H/O endoscopy Family History Mother Cervical cancer Maternal Aunt Breast cancer Cervical cancer Maternal Aunt Breast cancer Cervical cancer Maternal Aunt Cervical cancer Maternal Aunt Cervical cancer Social History Housing: Apartment Housing Other:: 2019 Alcohol intake: never Patient Tobacco Use Status: Current everyday Tobacco user Tobacco use type: Cigarette Cigarette Packs Per Day: 1.5 Cigarettes Per Day: 30 e-Cigarette/Vaping Use: Never Used Second Hand Smoke Exposure: Yes service: No Current occupational status: employed 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 Cognitive needs: No Hearing needs: No Vision needs: Yes (Glasses) Review of Systems Const All systems reviewed & are unremarkable except as noted in HPI and below Endo Reports no additional complaints Physical Exam Const General: cooperative, healthy appearing and no acute distress Psych Appearance: well kempt Attitude: cooperative Thought process: Normal thought process present Results Reviewed Results Reviewed: [address] [address] Ultrasound Report Signed Patient: Neema Yan MR#: [id number] : 1975 Acct:[id number] Age/Sex: 49 / F ADM Date: 04/12/24 Loc: HO.US Attending Dr: Marely Gibbons MD Ordering Physician: Marely Gibbons MD Date of Service: 04/12/24 Procedure(s): US pelvic and transvaginal Accession Number(s): [id number] cc: Marely Gibbons MD~ EXAMINATION:US PELVIS TRANSABDOMINAL AND TRANSVAGINAL CLINICAL INFORMATION: N94.9 - Unspecified condition associated with female genital organs and ... COMPARISON: Prior ultrasound 2022 LMP: March 31, 2024 FINDINGS: UTERUS: The uterus is anteverted. Size: 6.5 x 1.9 x 3.6 cm. Uterine mass: There is no uterine mass. Cervix: There are nabothian cysts Grossly unremarkable. Endometrium: Echogenic structure found within the endometrium measure up to 1.3 x 0.4 cm concerning for a polyp versus cervical lesion. There is a fluid around limits. ADNEXA: Normal Right ovary: Normal in size. Left ovary: Normal in size. Doppler exam: Normal Doppler flow identified in both ovaries. FREE FLUID: Trace amount of free fluid. OTHER FINDINGS: None US/US pelvic and transvaginal IMPRESSION: 1. Echogenic structure found within the endometrium 1.3 x 0.4 cm concerning for possible polyp versus cervical lesion. Attention to follow-up recommended. Consider correlation with tissue biopsy, if not performed would recommend follow-up pelvic MRI and/or ultrasound in 6-8 weeks. 2. There are nabothian cysts. 3. No ultrasound evidence of uterine mass. 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 Electronically signed by: Miya Huynh MD 06/01/2024 03:35 PM EST RP Dictated By: Miya Huynh MD Signed By: <Electronically signed by Miya Huynh MD in OV> 06/01/24 1535 DD/ 1608 TD/TT: 04/12/24 1624 Pourer Bull Ladle: HS Assessment & Plan Assessment & Plan (1) Abnormal finding on ultrasound: Code(s): R93.89 - Abnormal findings on diagnostic imaging of other specified body structures Plan Discussed: Ultrasound findings indicate endometrial lesion most likely a polyp but tissue pathology will need to be performed to determine, recommended further evaluation with a hysteroscopy, appointment for consult to be made with Dr. Fried. Anticipatory guidance for day stay surgery over few provided. Staff to reach out to Hannah Francis for appointment for vulvar assessment, new referral to be placed if accepting patients insurance. Annual exam in scheduled for 07/23/2024. The patient expressed understanding and agreement with the plan of care. All of her questions and concerns were addressed to the best of my ability. The patient expressed understanding and agreement with the plan of care. All of her questions and concerns were addressed to the best of my ability. Coding Level of Care Code Est Pt Level 3 (07208) Diagnoses Abnormal finding on ultrasound R93.89
[2024-07-03 10:25] VITALS: BP 132/76
--- OUTSIDE RECORDS SUMMARY | 2024-07-03 12:01 | XMS_ITS | Clinical Summary ---
Author Organization [facility] [address] [place] [address] [address] Phone Care Team Providers Care Orthotic/Prosthetic Practitioner Name Role Phone Marely Gibbons MD Primary Care Provider [phone] Social History Tobacco Use Types Packs/Day Years Used Date Smoking Tobacco: Never Assessed Sex and Gender Information Value Date Recorded Sex Assigned at Not on file Gender Identity Not on file Sexual Orientation Not on file Job Start Date Occupation Industry Not on file Not on file Not on file Plan of Treatment Upcoming Encounters Date Type Department Care Team (Late st Contact Info) Description 07/05/2024 10:00 AM EST Office Visit Obstetrics and Gynecology [address] [phone] Lucy Mckeon MD [address] [place] [address] Health Maintenance Due Date Last Done Comments Breast Cancer Screening 1975 DTaP,Tdap,and Td Vaccines (1 - Tdap) 1995 Hepatitis B Vaccines (1 of 3 - 19+ 3-dose series) 1995 Cervical Cancer Screening: P ap Smear 1997 Colorectal Cancer Screening: Colonoscopy 06/30/2023 Depression Screening 06/30/2023 HIV Screening 06/30/2023 Hepatitis C Screening 06/30/2023 Social Influencers of Health Screening 06/30/2023 COVID-19 Vaccine ( - 2023-2 5 season) 2024 Influenza Vaccine (#1) 2024 HIB Vaccines Aged Out No longer eligi ble based on patient's age to complete this topic HPV Vaccines Aged Out No longer eligi ble based on patient's age to complete this topic Hepatitis A Vaccines Aged Out No long er eligible based on patient's age to complete this topic IPV Vaccines Aged Out No longer eligi ble based on patient's age to complete this topic MMR Vaccines Aged Out No longer eligi ble based on patient's age to complete this topic Meningococcal ACWY Vaccine Aged Out N o longer eligible based on patient's age to complete this topic Pneumococcal Vaccine: Pediat rics (0 to 5 Years) and At-Risk Patients (6 to 64 Years) Aged Out No longer eligible b ased on patient's age to complete this topic RSV Immunization Patients Un gerardo 20 months Aged Out No longer eligible b ased on patient's age to complete this topic Varicella Vaccines Aged Out No longer eligible based on patient's age to complete this topic Care Teams Orthotic/Prosthetic Practitioner Relationship Specialty Start Date End Date Marely Gibbons MD [address] [place] [address] [address] [facility] [place] [address] PCP - General 07/19/22
== END 2024-07-03 10:47 | disposition home or self-care (01) ==
PROVIDERS: PCP Internal Medicine; Visit Provider Advanced Practice Midwife
DX: R93.89 Abnormal findings on diagnostic imaging of other specified body structures (principal)
CPT/HCPCS: 99213

== ENCOUNTER → 2024-07-03 10:07 | Outpatient (BNVA) | payer OTHER, SELFPAY | PROVIDERS: PCP Internal Medicine; Visit Provider Advanced Practice Midwife | DX: R93.89 Abnormal findings on diagnostic imaging of other specified body structures (principal); Z71.2 Person consulting for explanation of examination or test findings | CPT/HCPCS: 99212 ==

== ENCOUNTER → 2024-07-12 10:19 | Outpatient (BNVA) | payer OTHER, SELFPAY | PROVIDERS: PCP Internal Medicine; Visit Provider Obstetrics & Gynecology | DX: N84.0 Polyp of corpus uteri (principal); N93.9 Abnormal uterine and vaginal bleeding, unspecified | CPT/HCPCS: 99212 ==

== ENCOUNTER → 2024-07-12 10:19 | Outpatient (AMB) | payer OTHER, SELFPAY | END | disposition home or self-care (01) | PROVIDERS: PCP Internal Medicine; Visit Provider Obstetrics & Gynecology | CPT/HCPCS: 99213 ==

== ENCOUNTER 2024-07-23 13:50 | Outpatient (AMB) | payer OTHER, SELFPAY ==
--- NOTE | 2024-07-23 13:57 | A.OFFVIS_ITS ---
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 Doing well with no acquisition professional concerns. Seen Dr. Mckeon for vulvar burning was told it's LS, cultures were negative for yeast, now on meds, and needs further punch biopsies. Reports vulvar burning today. Regular monthly menses, lasting up to 8d, has a hystoroscopy booked for 08/02/24. Currently not is sexually active. STI screening offered; she declines. She tries to eat healthy and stays active with exercise. Denies family history of breast, ovarian or colon cancer. Last pap smear 2021, negative. Mammogram: 2023. [facility] Medical History Hirsutism Morbid obesity Colon cancer screening Burning sensation of vulva Vulvar pain Hidradenitis suppurativa Acute bronchitis BRCA gene mutation negative Abdominal tenderness Acute vaginitis Smoking Fibromyalgia Pelvic pain in female At high risk for breast cancer GERD (gastroesophageal reflux disease) Migraine Asthma Vitamin B12 deficiency Vitamin D deficiency Anti-phospholipid syndrome PCOS (polycystic ovarian syndrome) Hypercholesterolemia Hypertension Type 2 diabetes mellitus with hyperglycemia Surgical History H/O oral surgery H/O colonoscopy H/O endoscopy Family History Mother Cervical cancer Maternal Aunt Breast cancer Cervical cancer Maternal Aunt Breast cancer Cervical cancer Maternal Aunt Cervical cancer Maternal Aunt Cervical cancer Social History Housing: Apartment Housing Other:: 2019 Alcohol intake: never Patient Tobacco Use Status: Current everyday Tobacco user Tobacco use type: Cigarette Cigarette Packs Per Day: 1.5 Cigarettes Per Day: 30 e-Cigarette/Vaping Use: Never Used Second Hand Smoke Exposure: Yes service: No Current occupational status: employed Current occupation: [employer] Cognitive needs: No Hearing needs: No Vision needs: Yes (Glasses) Female Reproductive History Menstrual Duration of menses: 8-10 days Date of last menstrual period: 06/25/24 Total pregnancies: 0 Date of last pap smear: 02/01/22 (negative pap, negative hpv) Date of Mammogram: 07/19/23 (bi rad 1) Review of Systems Const All systems reviewed & are unremarkable except as noted in HPI and below Reports as per HPI Eyes Reports no additional complaints ENT Reports no additional complaints Card Reports no additional complaints Resp Reports no additional complaints GI Reports as per HPI and Reports no additional complaints Reports as per HPI Musc Reports no additional complaints Skin/Breast Reports as per HPI Neuro Reports no additional complaints Psych Reports no additional complaints Endo Reports no additional complaints Fan/Lymph Reports no additional complaints Aller/Immun Reports no additional complaints Physical Exam Const General: cooperative, healthy appearing, no acute distress, well developed and alert Orientation/consciousness: patient oriented x3 HEENT Head: Yes normal to inspection Eyes General: appearance normal, both eyes and all related structures Neck Neck: Yes normal visual inspection Thyroid: Thyroid normal Chest Chest palpation & inspection: normal inspection of the chest and other (no puckering, dimpling, peau de orange, retraction, discharge, masses) Breast/axilla inspection: normal inspection of the breasts Breast/axilla palpation: normal palpation of the breasts Resp Effort & Inspection: normal respiratory effort GI Inspection: Yes normal to inspection Palpation (GI): Soft to palpation Rectal Exam - Female: deferred Other: Labial minora erythema General: Yes bladder normal to palpation External Female Exam: normal external appearance and normal appearance of the urethra Speculum Exam - Vagina: normal appearance of the vagina, normal palpation and normal vaginal discharge Speculum Exam - Cervix: normal appearance of the cervix and normal palpation Bimanual exam- vagina & uterus: normal bimanual exam, normal palpation, uterine size normal, bladder normal to palpation, normal palpation and non-tender Bimanual Exam- Adnexa, other: no masses Skin General skin exam: no rashes or lesions noted Rashes: no rashes Neuro General: patient oriented x3 Cognition (Neuro): normal cognition Extrem General: Yes normal to inspection Psych Attitude: cooperative Thought process: Normal thought process present Assessment & Plan Assessment & Plan (1) Encounter for well woman exam with routine gynecological exam: Code(s): Z01.419 - Encounter for gynecological examination (general) (routine) without abnormal findings Category: Medical Plan Discussed: Current recommendations for pap smears per ASCCP guidelines. Breast awareness and periodic breast exams. Mammogram yearly. Maintain a healthy lifestyle including a well balanced diet and routine exercise. Keep follow up hysteroscopy appointment, most likely cycles will decrease in volume and longevity following the procedure. Use condoms for STI and prevention. Patient verbalizes understanding and agrees to the plan of care. She was given opportunity to ask questions and all questions were answered to the best of my ability. RTO in one year for annual acquisition professional examination. This note is constructed using voice recognition software. While every effort has been made to ensure accuracy, drafter automotive design errors may have been included. Coding Level of Care Code Est Pt Prev Care 40-64y(53126) Diagnoses Encounter for well woman exam with routine gynecological exam Z01.419
--- OUTSIDE RECORDS SUMMARY | 2024-07-23 14:50 | XMS_ITS | Clinical Summary ---
Author Organization [address] Address [address] [place] [phone] Phone Care Team Providers Care Logistics Intern Name Role Phone Marely Gibbons MD Primary Care Provider [phone] Allergies No known active allergies Medications lisinopril (PRINIVIL,ZESTR IL) 40 mg tablet Take 1 tablet (40 mg total) by mouth 1 (one) time each day. Active hydrocortisone (ANUSOL-HC) 2.5 % rectal cream Insert into the rectum 2 (two) times a day. Active lidocaine (LIDODERM) 5 % patch Apply 1 patch topically 1 (one) time each day. Remove & discard patch within 12 hours or as directed by . Active tirzepatide (Mounjaro) 12.5 mg/0.5 mL injection Inject 0.5 mL (12.5 mg total) under the skin every 7 (seven) days. Active traMADoL 25 mg tablet Take 50 mg by mouth every 4 (four) hours. Max Daily Amount: 300 mg Active cyanocobalamin (VITAMIN B-12) 1,000 mcg tablet Take 1 tablet (1,000 mcg total) by mouth 1 (one) time each day. Active sucralfate (CARAFATE) 1 gram tablet Take by mouth 4 (four) times a day. Active atorvastatin (LIPITOR) 10 mg tablet Take 1 tablet (10 mg total) by mouth at bedtime. Active baclofen (LIORESAL) 10 mg tablet Take by mouth 3 (three) times a day. Active metFORMIN (GLUCOPHAGE) 500 mg tablet Take 1 tablet (500 mg total) by mouth 2 (two) times a day with meals. Active lansoprazole (PREVACID) [address] capsule Take 1 capsule (30 mg total) by mouth 1 (one) time each day before breakfast. Do not crush or chew. Active bisacodyL (DULCOLAX) 5 mg EC tablet Take 1 tablet (5 mg total) by mouth 1 (one) time each day if needed for constipation. Do not crush, chew, or split. Active ondansetron (ZOFRAN) 4 mg tablet Take 1 tablet (4 mg total) by mouth every 8 (eight) hours if needed for nausea or vomiting. Active SUMAtriptan (IMITREX) 50 mg tablet Take 1 tablet (50 mg total) by mouth 1 (one) time if needed for migraine. May repeat dose once in 2 hours if no relief. Do not exceed 2 doses in 24 hours. Active dexAMETHasone (DECADRON) 1 mg tablet Take by mouth 2 (two) times a day with meals. Active lactulose (CEPHULAC) 10 gram packet Take 1 packet (10 g total) by mouth 3 (three) times a day. Active cetirizine (ZyrTEC) 10 mg tablet Take 1 tablet (10 mg total) by mouth 1 (one) time each day. Active nystatin-triamc inolone (MYCOLOG II) ointment Apply a thin layer twice daily for two weeks, then nightly 30 g Active Active Problems Problem Noted Date Diagnosed Date Lichen sclerosus et atrophicus 07/17/2024 Assessment & Plan (07/17/2024 4:40 PM EST): Reviewed findings with patient. I counseled her that findings are consistent with lichen sclerosus. I explained this is likely an autoimmune inflammatory condition and that the mainstay of therapy is use of maintenance topical steroid. I explained that women with lichen sclerosus are at about a 5 fold increased risk of SCC over the general population. Explained that the purpose of the steroid is to prevent symptoms, further scarring, and squamous cell cancer of the vulva. I also explained the importance of regular follow up to ensure she has no evidence of precancerous or cancerous changes and that she is not having side effects from her medication. I reviewed areas of application and amount of medication to use. She voiced understanding. She was given [facility] information re: LS today and will call with any questions. She will start Mycolog. I did discuss repeating a biopsy, but she did not feel she could tolerate it. Encounters Date Type Department Care Team Description 07/17/2024 1:45 PM EST Office Visit Obstetrics and Gynecology - [address] [phone] Lucy Mckeon MD Lichen sclerosus et atrophicus (Primary Dx) 07/05/2024 Telephone Obstetrics and Gynecology - [address] [phone] Lucy Mckeon MD Appointment from Last 3 Months Surgical History Surgery Date Site/Laterality Comments SPINE CLINIC INJECTION Medical History Medical History Date Comments Hypertension DM (diabetes mellitus), type 2 (CMS/HCC) Family History Medical History Relation Name Comments Ovarian cancer Mother Breast cancer Mother's Sister Colon cancer Neg Hx Pancreatic cancer Neg Hx Uterine cancer Neg Hx Relation Name Status Comments Mother Mother's Sister Social History Tobacco Use Types Packs/Day Years Used Date Smoking Tobacco: Every Day Cigarettes 1.5 6.1 Started: 2018 Smokeless Tobacco: Never Tobacco Cessation:Ready to Q uit: Not Asked; Counseling Given: Not Answered Alcohol Use Standard Drinks/Week Comments Not Currently 0 (1 standard drink = 0.6 oz pur e alcohol) Comments No Sex and Gender Information Value Date Recorded Sex Assigned at Not on file Legal Sex Female 9:11 PM EST Gender Identity Not on file Sexual Orientation Not on file Obstetrics History Para Term AB IAB SAB Ectopic Multiple Livin g Live Births 1 0 0 0 1 0 1 0 0 0 0 Date Outcome GA Total Labor Labor/2nd/3rd Weight Sex Type Anes PTL Arlin A1 A5 Name Clin SAB Last Filed Vital Signs Vital Sign Reading Time Taken Comments Blood Pressure 128/77 07/17/2024 1:52 PM EST Pulse 89 07/17/2024 1:52 PM EST Temperature - - Respiratory Rate 16 07/17/2024 1:52 PM EST Oxygen Saturation - - Inhaled Oxygen Concentration - - Weight 95.7 kg (211 lb) 07/17/2024 1:52 PM EST Height 160 cm (5' 3 ) 07/17/2024 1:52 PM EST Body Mass Index 37.38 07/17/2024 1:52 PM EST Plan of Treatment Upcoming Encounters Date Type Department Care Team (Late st Contact Info) Description 09/02/2024 10:45 AM EDT Office Visit Obstetrics and Gynecology [address] [phone] Lucy Mckeon MD [address], [place] Health Maintenance Due Date Last Done Comments Breast Cancer Screening 1976 DTaP,Tdap,and Td Vaccines (1 - Tdap) 1995 Hepatitis B Vaccines (1 of 3 - 19+ 3-dose series) 1995 Pneumococcal Vaccine: Pediat rics (0 to 5 Years) and At-Risk Patients (6 to 64 Years) (1 of 2 - PCV) 1995 Cervical Cancer Screening: P ap Smear 1997 Cholesterol Screening (Lipid Panel) 06/30/2023 Colorectal Cancer Screening: Colonoscopy 06/30/2023 Depression Screening [...] patient's age to complete this topic Meningococcal B Vacine Aged Out No lo nger eligible based on patient's age to complete this topic RSV Immunization Patients Un gerardo 20 months Aged Out No longer eligible b ased on patient's age to complete this topic Varicella Vaccines Aged Out No longer eligible based on patient's age to complete this topic Procedures Procedure Name Priority Date/Time Associated Diagnosis Comments CULTURE GENITAL Routine 07/17/2024 2:24 PM EST Lichen sclerosus et atrophicus from Last 3 Months Results * Culture genital (07/17/2024 2:24 PM EST) Culture, Genital No yeast, Beta Strep group B, Neisseria gonorrhoeae, Listeria, Gardnerella vaginalis, or other predominant potentially significant pathogens noted. 07/20/2024 11:01 AM EST [facility] Swab Vaginal structure / Unknown Non-blood Collection / Unknown 07/17/2024 2:24 PM EST 07/17/2024 2:24 PM EST Lucy Mckeon MD LAB MICROBIOLOGY - GENERAL ORDERABLES Final Result [facility] [address] [place] [address], from Last 3 Months Insurance [facility] [employer] Care Teams Logistics Intern Relationship Specialty Start Date End Date Marely Gibbons MD [address] [place] [address] [address] [facility] [place] [id number] PCP - General 07/19/22
--- OUTSIDE RECORDS SUMMARY | 2024-07-23 14:50 | XMS_ITS | Encounter Summary ---
Author Organization [facility] Address [address] [place] [address] Care Team Providers Care Range Manager Name Role Phone Marely Gibbons MD Primary Care Provider [phone] Reason for Visit * Reason Comments vagginal problems Encounter Details Date Type Department Care Team ([facility] st Contact Info) Description 07/17/2024 1:45 PM EST Office Visit Obstetrics and Gynecology [address] [phone] Lucy Mckeon MD [address] [place], [place] Lichen sclerosus et atrophicus (Primary Dx) Social History Tobacco Use Types Packs/Day Years Used Date Smoking Tobacco: Every Day Cigarettes 1.5 6.1 Started: 2019 Smokeless Tobacco: Never Tobacco Cessation:Ready to Q uit: Not Asked; Counseling Given: Not Answered Alcohol Use Standard Drinks/Week Comments Not Currently 0 (1 standard drink = 0.6 oz pur e alcohol) Comments No Sex and Gender Information Value Date Recorded Sex Assigned at Not on file Legal Sex Female 9:11 PM EST Gender Identity Not on file Sexual Orientation Not on file documented as of this encounter Last Filed Vital Signs Vital Sign Reading [...] Mass Index 37.38 07/17/2024 1:52 PM EST documented in this encounter Ordered Prescriptions Prescription Sig Dispense Quantity Refills Last Filled Start Date End Date nystatin-triamcino lone (MYCOLOG II) ointment Apply a thin layer twice daily for two weeks, then nightly 30 g 07/17/2024 documented in this encounter Progress Notes * Lucy Mckeon MD - 07/17/2024 4:39 PM ESTAssociated Problem(s): Lichen sclerosus et atrophicus Reviewed findings with patient. I counseled her that findings are consistent with lichen sclerosus.I explained this is likely an autoimmune inflammatory condition and that the mainstay of therapy isuse of maintenance topical steroid. I explained that [...] use. She voiced understanding. She was given [facility] information re: LS today and will call with any questions. She will start Mycolog. I did discuss repeating a biopsy, but she did not feel she could tolerate it. * Lucy Mckeon MD - 07/17/2024 1:45 PM EST Use nystatin/triamcinolone (new ointment) as directed on the tube Apply Vaseline or coconut oil between medication doses Follow all instructions VULVAR LICHEN SCLEROSUS What is it? Lichen sclerosus (LS) is a snf skin disease that mainly affects the genital skin. It usually starts around the age of menopause but may occur in children. It occurs in 1 in 1000 women and less often in men and can occur in children. The skin outside the genital region is less commonly involved. This condition appears as white, fragile, skin patches that can sometimes look crinkled, but can have a shiny and smooth surface. What causes lichen sclerosus? The cause of LS is unknown. It can be associated, in some patients (and/or their close relatives), with autoimmune diseases, such as thyroid disorders or vitiligo. Autoimmune diseases occur when the cells and proteins that the body uses to fight off infection start to damage the body???s own tissues and prevent their normal actions. Your health care provider may do blood tests to check for these autoimmune diseases. It can be made worse by skin irritation, like scratching, and any infection on open skin from yeast or bacteria. LS is not an infection and is not contagious. It cannot be passed on to a sexual partner. Sometimes, the disease may occur in family members but the risk of this is unknown. What are the symptoms and what do I see? Itching is the most common symptom. This can be severe and may disturb sleep. Some people experience soreness and burning particularly on intercourse. Small cracks in the skin (fissures) and ulcers can occur as a result of scratching the skin, and these can be very sore. If the anal skin is split there can be pain with bowel movements. The skin becomes pale and white in appearance. This may be patchy or involve all the vulva extending down to the skin around the anus. Small purplish/red areas may be seen on the white background. These are bruises due to tiny areas of bleeding into the skin, often because of scratching. There may be scarring that causes loss of vulvar tissue (eg. the inner lips) or shrinkage of the entrance to the vaginar area, which can cause pain and interfere with sexual intercourse and rarely even cause problems with urination. It does not involve the vagina. Some people have no symptoms and the diagnosis may be made when the area is examined for another reason. In about 10% of women with vulvar LS, white patches may be seen on theskin elsewhere. The common sites for this are on the back, waist area and under the breasts. How is it diagnosed? Health care providers familiar with the condition may diagnose it by looking at the skin and seeingthe usually characteristic appearance. The diagnosis is usually confirmed by taking a skin biopsy. This involves taking a small piece of skin, first numbing the skin using a local anesthetic to be. The skin is then looked at under the microscope looked at microscopically. This is called a biopsy. This is a simple procedure that can be done in the doctor???s office with a local anesthetic. What is the treatment? There is no total cure for LS but the symptoms can be controlled extremely well by the use of strong steroid ointments. The appearance of the vulvar skin can usually be improved but if there is a lotof scarring, changes may not be reversed. Appropriate treatment is aimed at trying to prevent the development of further inflammation and scarring. The most effective treatment for LS is a very strong topical steroid ointment such as clobetasol propionate or halobetasol. These are can be quite safeto ly used in the genital area for this condition. In general, a pea sized amount of the ointment is sufficient to treat the vulvar skin. Your health care provider will tell you how to use your treatment. Just a small tube is needed, 15 to 30g, which should last 3 months and usually longer. Treatment should not be stopped unless advised by your doctor as LS can recur. Many patients find that simple moisturizers such as plain petrolatum can be helpful in addition to the strong cortisone/steroid ointments. All skin irritation should be avoided as far as possible, as irritation may increase the symptoms of will increase LS. Any infections from yeast or bacteria must be treated. Soaps and shower gels arebest avoided in the genital area. The genital skin can be washed with plain warm water or a gentle soap substitute. It is ideal to clean the vulva just using one???s fingertips and warm water over the skin surface. Some people find that a saline solution (a quarter of a teaspoon of salt dissolved in a cup of water) is helpful. You may feel itchy at times. This may be worse at a particular time of the day, usually at night, and many women wake themselves scratching. Many women cannot help scratching. The itchscratch response is normal but treatment with the steroid ointment and the emollient will help scratching the genital area is potentially harmful as it can damage the skin and keep symptoms going for quite some time. There may only be 2 strategies we can use to help the itch. Firstly, the condition needs to be managed properly (this is a shared job between you and your doctor). Secondly, distraction which is something only you can do. For example, if the itch is unbearable in bed, don???t lie there feeling unco mfortable and unable to resist scratching. Instead, get up, find something to do which occupies your hands and your concentration. When you feel the tension from the itch is reduced, then try to go back to bed. Hopefully there will only be a short time before you begin to feel better. A first generation antihistamine such as hydroxyzine taken at bed time may will help to control itching. It is best to keep your nails short filed down so that scratching in yoursleep will not cause too much damage. If intercourse is painful intercourse can be helped with natural gentle lubricants may help, if dryness is a problem and you are around the time of the menopause ask your doctor about vaginal estrogens such as plain petrolatum. Painful sexual penetration should be avoided. What should I watch for? Patients with LS may be a little are a little more likely to develop skin cancer in the genital affected areas. However, it only occurs in about 3-4% of patients with LS and early treatment may reduce this risk even further. Any new lumps or non-healing sores or a major change in your symptoms should be reported to your doctor if they do not respond quickly to the steroid ointment. It is a good idea to get used to examining the genital skin yourself at least monthly if you are able. We advise patients with LS to have a genital examination by their health care provider at least once a year. International Society for the Study of Vulvovaginal Disease Patient Information Committee Revised 2014 VULVAR SKIN CARE GUIDELINES NOTE: The goal is to promote healthy vulvar skin. This is done by decreasing and removing chemicals, moisture, or rubbing (friction). Products listed below have been suggested for use because of their past success in helping to decrease or relieve vulvar/vaginal burning, irritation, or itching. LAUNDRY PRODUCTS 1. Use the detergent brand ALL FREE CLEAR on all laundry that goes into your washer, every load, every time. NO SUBSTITUTIONS. Use 1/3 to ?? the suggested amount per load. 2. Do not use fabric softeners or dryer sheets in the washer or dryer, even those advertised as ???free?? . If you use a shared washer or dryer, such as a laundromat, apartment, or dorm you must handwash, in ALL FREE CLEAR and line dry your underwear . You can use dryer balls to help soften clothes. 3. Stain removing products (including bleach). Soak and rinse in clear water all underwear and towels on which you have used a stain removing product. Then wash in your regular washing cycle using ALL FREE CLEAR. This removes as much of the product as possible. White vinegar or lemon juice, 1/4 to 1/3 cup per laundry load, can be used to freshen clothing and remove oils. CLOTHING 1. Wear white all cotton underwear, not nylon with a cotton crotch. Cotton allows air in and moisture out. Do not wear underwear when sleeping at night. Do not wear thongs. Loose fitting cotton boxers or cotton pajama bottoms are fine. 2. Avoid pantyhose. If you must wear them, either cut out the wayne crotch (if you cut out the crotch be sure to leave about 1/4 inch of fabric from the seam to prevent running) or wear thigh high hose. Many stores now carry thigh high hose. 3. Avoid tight clothing, especially clothing made of synthetic fabrics. Remove wet bathing and exercise clothing as soon as you can. BATHING AND HYGIENE 1. Do not use bath soaps, lotions, gels, etc. which contain perfumes. These may smell nice, but canbe irritating. This includes many baby products and feminine hygiene products marked gentle or mild . DOVE FOR SENSITIVE SKIN, NEUTROGENA, BASIS, AVEENO, OR PEARS are the soaps we suggest. Your partner needs to use one of these soaps also. Do not use soap directly on the vulvar skin. Just warm wa ter and your hand will keep the vulvar area clean without irritating the skin. 2. Do not use bubble bath, bath salts, and scented oils. You may apply a neutral (unscented, non-perfumed) oil or lotion to damp skin after getting out of the tub or shower. Do not apply lotion directly to the vulva. 3. Do not scrub vulvar skin with a washcloth, washing with your hand and warm water is enough for good cleaning. 4. Pat dry rather than rubbing with a towel. Or, use a agriculture department chair on a cool setting to dry the vulva. 5. Baking Soda soaks. Soak in lukewarm (not hot) bath water with 4-5 tablespoons of baking soda to help soothe vulvar itching and burning. Soak 1 to 3 times a day for 10 minutes. If you are using a sitz bath, use 1 to 2 teaspoons of baking soda. 6. Use white, unscented toilet paper. Do not use toilet paper with aloe. 7. Do not use feminine hygiene sprays, perfumes, adult, or baby wipes. You can use Water Wipes or Tucks hemorrhoid pads to clean if you feel the need. If urine causes burning of the skin, pour lukewarm water over the vulva while urinating. Pat dry rather than wiping. 8. Do not use deodorized pads and tampons. Tampons may be used when the blood flow is heavy enough to soak one tampon in four hours or less. Tampons are safe for most women, but wearing them too longor when the blood flow is light may result in vaginal infection, increased discharge, odor, or toxic shock syndrome. Also, use only pads that have a cotton liner, not nylon mesh weave, that comes in contact with your skin. Nylon traps moisture and keeps blood and discharge against your skin longer.Cotton unscented pads STAYFREE, CAREFREE, or 7th GENERATION. 9. Do not use [id number] creams or ointments until you ask your health care provider. When buying ointments, be sure that they are paraben and fragrance-free. 10. Small amounts of coconut oil, extra virgin olive oil, vegetable oil, zinc oxide ointment, or plain Vaseline may be applied to your vulva as often as needed to protect the skin. It also helps to decrease skin irritation during your period and when you urinate. 11. Do not douche. Baking soda soaks or rinsing with warm water will help rinse away extra discharge and help with odor. 12. Do not shave or use hair removal products on the vulvar area. You may use scissors to trim the pubic hair close to the vulva. Laser hair removal is an option. 13. Some women may have problems with chronic dampness. Keeping dry is important. Do not wear pads on a daily basis. Choose cotton fabrics whenever you can. Keep an extra pair of underwear with you and change if you become damp. GOLD PEREZ or ZEASORB powder may be applied to the groin area 1 to 2 times per day to help absorb moisture. Do not use powders that contain cornstarch. 14. Dryness and irritation during intercourse may be helped by using a lubricant. Use a small amount of a pure vegetable oil (solid, liquid, or extra virgin olive oil). These oils contain no chemicals to irritate vulvar/vaginal skin. Vegetable oils will rinse away with water and will not increase your chances of infection. [id number] water-based lubricants tend to dry out before intercourseis over, causing small tears in the vagina, and may also contain chemicals that can irritate your vulvar skin. It may be helpful to use a non-lubricated, non-spermicidal condom, and use vegetable oilas the lubricant. This will help keep the semen off the skin which can decrease burning and irritation after intercourse. * Lucy Mckeon MD - 07/17/2024 1:45 PM EST 07/17/2024 Chief Complaint Patient presents with vagginal problems Subjective: Neema Yan is a 49 y.o. who presents for vulvar irritation. She was referred by Tony at [facility]. Notes a little over a year ago she started with pain at clitoris. Now itchy and painful and spread up and out. She notes it is painful to touch or to wash. Skin peels off. Has had hair loss on the vulva as well. All day every day. Never goes away. 2019 from esophageal cancer, thus she has not been sexually active since then. She has fibromyalgia. No other autoimmune conditions. Grecia tried Zyrtec, not helping. Tried nystatin cream, told cannot use all the time. It was helpful. Did not get it resolved completely, but eased it some. Vulvar biopsy showed hyperkeratosis with focal scale and crusting. She does have clear discharge, but testing has been negative for infection. Having D&C polypectomy with Dr. Fried [facility] on 08/09. Review of Systems: As in HPI. Patient Active Problem List Diagnosis Lichen sclerosus et atrophicus Past Medical History: Diagnosis Date DM (diabetes mellitus), type 2 (CMS/HCC) Hypertension Past Surgical History: Procedure Laterality Date SPINE CLINIC INJECTION Family History Problem Relation Name Age of Onset Ovarian cancer Mother 72 Breast cancer Mother's Sister Colon cancer Neg Hx Pancreatic cancer Neg Hx Uterine cancer Neg Hx Social History Socioeconomic History Marital status: Spouse name: None Number of children: None Years of education: None Highest education level: None Occupational History None Tobacco Use Smoking status: Every Day Current packs/day: 1.50 Average packs/day: 1.5 packs/day for 6.1 years (9.2 ttl pk-yrs) Types: Cigarettes Start date: 2018 Smokeless tobacco: Never Substance and Sexual Activity Alcohol use: Not Currently Drug use: Not Currently Sexual activity: Not Currently Other Topics Concern None Social History Narrative None OB History Para Term AB Living 1 0 0 0 1 0 SAB IAB Ectopic Multiple Live Births 1 0 0 0 0 # Outcome Date GA Lbr Trevon/2nd Weight Sex Type Anes PTL Lv 1 SAB Current Outpatient Medications on File Prior to Visit Medication Sig Dispense Refill atorvastatin (LIPITOR) 10 mg tablet Take 1 tablet (10 mg total) by mouth at bedtime. baclofen (LIORESAL) 10 mg tablet Take by mouth 3 (three) times a day. bisacodyL (DULCOLAX) 5 mg EC tablet Take 1 tablet (5 mg total) by mouth 1 (one) time each day if needed for constipation. Do not crush, chew, or split. cetirizine (ZyrTEC) 10 mg tablet Take 1 tablet (10 mg total) by mouth 1 (one) time each day. cyanocobalamin (VITAMIN B-12) 1,000 mcg tablet Take 1 tablet (1,000 mcg total) by mouth 1 (one) time each day. dexAMETHasone (DECADRON) 1 mg tablet Take by mouth 2 (two) times a day with meals. hydrocortisone (ANUSOL-HC) 2.5 % rectal cream Insert into the rectum 2 (two) times a day. lactulose (CEPHULAC) 10 gram packet Take 1 packet (10 g total) by mouth 3 (three) times a day. lansoprazole (PREVACID) [address] capsule Take 1 capsule (30 mg total) by mouth 1 (one) time each day before breakfast. Do not crush or chew. lidocaine (LIDODERM) 5 % patch Apply 1 patch topically 1 (one) time each day. Remove & discard patch within 12 hours or as directed by MD. lisinopril (PRINIVIL,ZESTRIL) 40 mg tablet Take 1 tablet (40 mg total) by mouth 1 (one) time each day. metFORMIN (GLUCOPHAGE) 500 mg tablet Take 1 tablet (500 mg total) by mouth 2 (two) times a day withmeals. ondansetron (ZOFRAN) 4 mg tablet Take 1 tablet (4 mg total) by mouth every 8 (eight) hours if needed for nausea or vomiting. sucralfate (CARAFATE) 1 gram tablet Take by mouth 4 (four) times a day. SUMAtriptan (IMITREX) 50 mg tablet Take 1 tablet (50 mg total) by mouth 1 (one) time if needed for migraine. May repeat dose once in 2 hours if no relief. Do not exceed 2 doses in 24 hours. tirzepatide (Mounjaro) 12.5 mg/0.5 mL injection Inject 0.5 mL (12.5 mg total) under the skin every 7 (seven) days. traMADoL 25 mg tablet Take 50 mg by mouth every 4 (four) hours. Max Daily Amount: 300 mg No current facility-administered medications on file prior to visit. No Known Allergies Objective: Vitals: 07/17/24 1352 BP: 128/77 Pulse: 89 Resp: 16 Weight: 95.7 kg (211 lb) Height: 1.6 m (63 ) Gen: Well-appearing on today's exam NEUROLOGIC: speech fluent, grossly intact PSYCH: Mood and affect appropriate. Alert and oriented x 3. LYMPH: No inguinal lymphadenopathy. PELVIC: External Genitalia: Exam chaperoned by electromedical equipment repairer. Abnormal. Almost complete phimosis of clitoral estevez, almost complete involution of bilateral labia minora. Subtle hypopigmentation and lichenification in the anterior commissure and medial labia majora. Scattered hypopigmentation on posterior labia majora bilaterally and on perineal body. No other discrete lesions. Very tender to the touch. Urethral meatus: normal Perianal area: No lesions. Assessment/Plan: 49 y.o. with: Lichen sclerosus et atrophicus Reviewed findings with patient. I counseled her that findings are consistent with lichen sclerosus.I explained this is likely an autoimmune inflammatory condition and that the mainstay of therapy isuse of maintenance topical steroid. I explained that [...] use. She voiced understanding. She was given [facility] information re: LS today and will call with any questions. She will start Mycolog. I did discuss repeating a biopsy, but she did not feel she could tolerate it. Orders Placed This Encounter Procedures Culture genital If yeast, please speciate Order Specific Question: To which resulting agency are you sending this order? (Please ensure this field matches Resulting Agency below) Answer: [facility] [[id number]] Order Specific Question: Specimen Type: Answer: Swab [102] Order Specific Question: Release to patient Answer: Immediate [1] Follow up for 6 weeks, vulvar follow up 15 min any day. Lucy Mckeon MD documented in this encounter Plan of Treatment Upcoming Encounters Date Type Department Care Team (Late st Contact Info) Description 09/02/2024 10:45 AM EDT Office Visit Obstetrics and Gynecology [address] [phone] [place] [id number] documented as of this encounter Procedures Procedure Name Priority Date/Time Associated Diagnosis Comments CULTURE GENITAL Routine 07/17/2024 2:24 PM EST Lichen sclerosus et atrophicus documented in this encounter Results * Culture genital (07/17/2024 2:24 PM EST) Culture, Genital No yeast, Beta Strep group B, Neisseria gonorrhoeae, Listeria, Gardnerella vaginalis, or other predominant potentially significant pathogens noted. 07/20/2024 11:[address] [facility] Swab Vaginal structure / Unknown Non-blood Collection / Unknown 07/17/2024 2:24 PM EST 07/17/2024 2:24 PM EST us Lucy Mckeon MD LAB MICROBIOLOGY - GENERAL ORDERABLES Final Result 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 cetirizine (ZyrTEC) 10 mg tablet Take 1 tablet (10 mg total) by mouth 1 (one) time each day. lactulose (CEPHULAC) 10 gram packet Take 1 packet (10 g total) by mouth 3 (three) times a day. dexAMETHasone (DECADRON) 1 mg tablet Take by mouth 2 (two) times a day with meals. SUMAtriptan (IMITREX) 50 mg tablet Take 1 tablet (50 mg total) by mouth 1 (one) time if needed for migraine. May repeat dose once in 2 hours if no relief. Do not exceed 2 doses in 24 hours. ondansetron (ZOFRAN) 4 mg tablet Take 1 tablet (4 mg total) by mouth every 8 (eight) hours if needed for nausea or vomiting. bisacodyL (DULCOLAX) 5 mg EC tablet Take 1 tablet (5 mg total) by mouth 1 (one) time each day if needed for constipation. Do not crush, chew, or split. lansoprazole (PREVACID) [address] capsule Take 1 capsule (30 mg total) by mouth 1 (one) time each day before breakfast. Do not crush or chew. metFORMIN (GLUCOPHAGE) 500 mg tablet Take 1 tablet (500 mg total) by mouth 2 (two) times a day with meals. baclofen (LIORESAL) 10 mg tablet Take by mouth 3 (three) times a day. atorvastatin (LIPITOR) 10 mg tablet Take 1 tablet (10 mg total) by mouth at bedtime. sucralfate (CARAFATE) 1 gram tablet Take by mouth 4 (four) times a day. cyanocobalamin (VITAMIN B-12) 1,000 mcg tablet Take 1 tablet (1,000 mcg total) by mouth 1 (one) time each day. traMADoL 25 mg tablet Take 50 mg by mouth every 4 (four) hours. Max Daily Amount: 300 mg tirzepatide (Mounjaro) 12.5 mg/0.5 mL injection Inject 0.5 mL (12.5 mg total) under the skin every 7 (seven) days. lidocaine (LIDODERM) 5 % patch Apply 1 patch topically 1 (one) time each day. Remove & discard patch within 12 hours or as directed by MD. hydrocortisone (ANUSOL-HC) 2.5 % rectal cream Insert into the rectum 2 (two) times a day. lisinopril (PRINIVIL,ZESTRI L) 40 mg tablet Take 1 tablet (40 mg total) by mouth 1 (one) time each day. added in this encounter Care Teams Range Manager Relationship Specialty Start Date End Date Marely Gibbons MD [address] [place] [address] [address] [facility] [place] [address] PCP - General 07/19/22 documented as of this encounter
--- OUTSIDE RECORDS SUMMARY | 2024-07-23 14:50 | XMS_ITS | Encounter Summary ---
Author Organization [facility] Address [address] [place] [address] Care Team Providers Care Manager Research And Development Name Role Phone Marely Gibbons MD Primary Care Provider [phone] Reason for Visit * Reason Onset Date Comments Appointment 07/05/2024 Encounter Details Date Type Department Care Team (Late st Contact Info) Description 07/05/2024 Telephone Obstetrics and Gynecology - [place] [id number] [place], [place] [phone] Lucy Mckeon MD [address] [place], [place] Appointment Social History Tobacco Use Types Packs/Day Years Used Date Smoking Tobacco: Never Assessed Comments Unknown Sex and Gender Information Value Date Recorded Sex Assigned at Not on file Legal Sex Female 9:11 PM EST Gender Identity Not on file Sexual Orientation Not on file documented as of this encounter Progress Notes * Gabriella Mendoza [place] - 07/05/2024 11:31 AM EST Appointment was booked for 07/17/2024 * Grecia Smart - 07/05/2024 9:48 AM EST Pt cancelled her appt for today with dr. Mckeon. Would like to reschedule , pt advised of wait list. Pls advise documented in this encounter Plan of Treatment Upcoming Encounters Date Type Department Care Team (Late st Contact Info) Description 09/02/2024 10:45 AM EDT Office Visit Obstetrics and Gynecology - [address] [phone] Lucy Mckeon MD [address] [place], [place] documented as of this encounter Visit Diagnoses Not on filedocumented in this encounter Care Teams Manager Research And Development Relationship Specialty Start Date End Date Shai, MD Marely [address] [place] [address] [address] [facility] [place] [address] PCP - General 07/19/22 documented as of this encounter
== END 2024-07-23 14:41 | disposition home or self-care (01) ==
PROVIDERS: PCP Internal Medicine; Visit Provider Advanced Practice Midwife
DX: Z01.419 Encounter for gynecological examination (general) (routine) without abnormal findings (principal)
CPT/HCPCS: 99396; 99459

== ENCOUNTER → 2024-07-23 13:50 | Outpatient (BNVA) | payer OTHER, SELFPAY | PROVIDERS: PCP Internal Medicine; Visit Provider Advanced Practice Midwife | DX: Z01.419 Encounter for gynecological examination (general) (routine) without abnormal findings (principal) | CPT/HCPCS: 99396; 99459 ==

== ENCOUNTER 2024-07-30 09:48 | Outpatient (REF) | payer OTHER, SELFPAY ==
--- OUTSIDE RECORDS SUMMARY | 2024-07-30 11:10 | XMS_ITS | Clinical Summary ---
Author Organization [address] Address [address] [place] [phone] Phone Care Team Providers Care Preschool Teacher Name Role Phone Marely Gibbons MD Primary Care Provider [phone] Allergies No known active allergies Medications lisinopril [...] use. She voiced understanding. She was given [facility] information re: LS today and will call with any questions. She will start Mycolog. I did discuss repeating a biopsy, but she did not feel she could tolerate it. Encounters Date Type Department Care Team Description 07/17/2024 1:45 PM EST Office Visit Obstetrics and Gynecology - [address] [phone] Lucy Mckeon MD Lichen sclerosus et atrophicus (Primary Dx) 07/05/2024 Telephone Obstetrics and Gynecology - [address] [phone] Lucy Mckeon MD Appointment from Last 3 [...] Date Smoking Tobacco: Every Day Cigarettes 1.5 6.2 Started: 2018 Smokeless Tobacco: Never Tobacco Cessation:Ready [...] AM EDT Office Visit Obstetrics and Gynecology [address] [phone] Lucy Mckeon MD [address] [place], [place] Health Maintenance Due Date Last Done [...] significant pathogens noted. 07/20/2024 11:01 AM EST [facility] Swab Vaginal structure / Unknown Non-blood Collection / Unknown 07/17/2024 2:24 PM EST 07/17/2024 2:24 PM EST Lucy Mckeon MD LAB MICROBIOLOGY - GENERAL ORDERABLES Final Result [facility] [address] [place] [address], from Last 3 Months Insurance [facility] [employer] Care Teams Preschool Teacher Relationship Specialty Start Date End Date Marely Gibbons MD [address] [place] [address] [address] [facility] [place] [id number] PCP - General 07/19/22
--- OUTSIDE RECORDS SUMMARY | 2024-07-30 11:10 | XMS_ITS | Encounter Summary ---
Author Organization [facility] Address [address] [place] [address] Care Team Providers Care Gluing Machine Feeder Name Role Phone Marely Gibbons MD Primary Care Provider [phone] Reason for Visit * Reason Onset Date Comments Appointment 07/05/2024 Encounter Details Date Type Department Care Team (Late st Contact Info) Description 07/05/2024 Telephone Obstetrics and Gynecology - [place] [id number] [place], [place] [phone] Lucy Mckeon MD [address] [place], [place] Appointment Social History Tobacco Use Types [...] EDT Office Visit Obstetrics and Gynecology - [address] [phone] Lucy Mckeon MD [address] [place], [place] documented as of this encounter Visit Diagnoses Not on filedocumented in this encounter Care Teams Gluing Machine Feeder Relationship Specialty Start Date End Date Shai, MD Marely [address] [place] [address] [address] [facility] [place] [address] PCP - General 07/19/22 documented as of this encounter
--- OUTSIDE RECORDS SUMMARY | 2024-07-30 11:11 | XMS_ITS | Encounter Summary ---
Author Organization [facility] Address [address] [place] [address] Care Team Providers Care Appliance Counselor Name Role Phone Marely Gibbons MD Primary Care Provider [phone] Reason for Visit * Reason Comments vagginal problems Encounter Details Date Type Department Care Team ([facility] st Contact Info) Description 07/17/2024 1:45 PM EST Office Visit Obstetrics and Gynecology [address] [phone] Lucy Mckeon MD [address] [place], [place] Lichen sclerosus et atrophicus (Primary Dx) [...] use. She voiced understanding. She was given [facility] information re: LS today and will call with any questions. She will start Mycolog. I did discuss repeating a biopsy, but she did not feel she could tolerate it. * Lucy Mckeon MD - 07/17/2024 1:45 PM EST negative * Lucy Mckeon MD - 07/17/2024 1:45 [...] rubbing with a towel. Or, use a hair mixer on a cool setting to dry the [...] or 7th GENERATION. 9. Do not use biey-vtj-jergesz creams or ointments until you ask your [...] will not increase your chances of infection. Jrnh-vna-cjkvgxh water-based lubricants tend to dry out before [...] irritation. She was referred by Tony at [facility]. Notes a little over a year ago [...] for infection. Having D&C polypectomy with Dr. Corky MCCURDY on 08/09. Review of Systems: As in [...] PELVIC: External Genitalia: Exam chaperoned by medical assistant instructor. Abnormal. Almost complete phimosis of clitoral estevez, [...] use. She voiced understanding. She was given [facility] information re: LS today and will call with any questions. She will start Mycolog. I did discuss repeating a biopsy, but she did not feel she could tolerate it. Orders Placed This Encounter Procedures Culture genital If yeast, please speciate Order Specific Question: To which resulting agency are you sending this order? (Please ensure this field matches Resulting Agency below) Answer: [facility] ([facility]) [[id number]] Order Specific Question: Specimen Type: Answer: Swab [102] Order Specific Question: Release to patient Answer: Immediate [1] Follow up for 6 weeks, vulvar follow up 15 min any day. Lucy Mckeon MD documented in this encounter Plan of Treatment Upcoming Encounters Date Type Department Care Team (Late st Contact Info) Description 09/02/2024 10:45 AM EDT Office Visit Obstetrics and Gynecology [address] [phone] Lucy Mckeon MD [place], [place] documented as of this encounter Procedures Procedure Name Priority Date/Time Associated Diagnosis Comments CULTURE GENITAL Routine 07/17/2024 2:24 PM EST Lichen sclerosus et atrophicus documented in this encounter Results * Culture genital (07/17/2024 2:24 PM EST) Culture, Genital No yeast, Beta Strep group B, Neisseria gonorrhoeae, Listeria, Gardnerella vaginalis, or other predominant potentially significant pathogens noted. 07/20/2024 11:01 AM EST [facility] Swab Vaginal structure / Unknown Non-blood Collection / Unknown 07/17/2024 2:24 PM EST 07/17/2024 2:24 PM EST Lucy Mckeon MD LAB MICROBIOLOGY - GENERAL ORDERABLES Final Result [facility] [address] [place] [address], documented in this encounter Visit Diagnoses Diagnosis [...] 12 hours or as directed by . hydrocortisone (ANUSOL-HC) 2.5 % rectal cream Insert into the rectum 2 (two) times a day. lisinopril (PRINIVIL,ZESTRI L) 40 mg tablet Take 1 tablet (40 mg total) by mouth 1 (one) time each day. added in this encounter Care Teams Appliance Counselor Relationship Specialty Start Date End Date Marely Gibbons MD [address] [place] [address] [address] [facility] [place] [address] PCP - General 07/19/22 documented as of this encounter
[2024-07-30 13:18] LABS: Appearance Urine Clear; Color Urine Yellow; Glucose Urine UA Negative (Negative); Leukocyte Esterase Urine Negative (Negative); Nitrite Urine Negative (Negative); PH 6.5 (5.0-9.0); Urine Blood Negative (Negative); Urine Ketones Negative (Negative); Urine Protein Negative (Neg-Trace)
[2024-07-30 13:34] LABS: Hematocrit 38.6 % (37.0-47.0); Hemoglobin 12.5 g/dl (12.0-16.0); Mean Corpuscular HGB Conc 32.4 g/dl (31.0-35.0); Mean Corpuscular Hemoglobin 29.4 pg (27.0-33.0); Mean Corpuscular Volume 90.8 fL (80.0-98.0); Mean Platelet Volume 9.5 fL (9.4-12.3); Platelet Count 307 X10*3/uL (160-400); Red Blood Count 4.25 X10*6/uL (4.20-5.50); Red Cell Distribution Width 13.5 % (11.0-16.0); White Blood Count 11.1 X10*3/uL (4.8-10.8)
[2024-07-30 13:46] LABS: Blood Urea Nitrogen 8 mg/dL (9-16); Estimated Glomerular Filt Rate > 60
[2024-07-30 14:15] LABS: HCG Quantitative < 2 mIU/mL; TSH reflex Free T4 0.64 uIU/mL (0.32-4.0)
[2024-08-12 14:24] LABS: Dexamethasone <20 ng/dL
== END 2024-07-30 09:49 | disposition home or self-care (01) ==
LOC: HO.HMGCLDS 09:48
PROVIDERS: Obstetrics & Gynecology; PCP Internal Medicine; Referring Provider Student in an Organized Health Care Education/Training Program; Visit Provider Internal Medicine
DX: E27.8 Other specified disorders of adrenal gland (principal); L68.0 Hirsutism; R30.0 Dysuria; R10.9 Unspecified abdominal pain; N93.9 Abnormal uterine and vaginal bleeding, unspecified
CPT/HCPCS: 36415; 80299; 81003; 82565; 84443; 84520; 84702; 85027

== ENCOUNTER 2024-08-02 07:14 | Day surgery (SDC) | payer OTHER, SELFPAY ==
--- OUTSIDE RECORDS SUMMARY | 2024-07-26 14:10 | XMS_ITS | Encounter Summary ---
Author Organization [facility] Address [address] [place] [address] Care Team Providers Care Truck Mechanic Name Role Phone Marely Gibbons MD Primary Care Provider [phone] Reason for Visit * Reason Onset Date Comments Appointment 07/05/2024 Encounter Details Date Type Department Care Team (Late st Contact Info) Description 07/05/2024 Telephone Obstetrics and Gynecology - [place] [id number] [place], [place] [phone] Lucy Mckeon MD [address] [place], [place] Appointment Social History Tobacco Use Types [...] EDT Office Visit Obstetrics and Gynecology - [address] [phone] Lucy Mckeon MD [address] [place], [place] documented as of this encounter Visit Diagnoses Not on filedocumented in this encounter Care Teams Truck Mechanic Relationship Specialty Start Date End Date Shai, MD Marely [address] [place] [address] [address] [facility] [place] [address] PCP - General 07/19/22 documented as of this encounter
--- OUTSIDE RECORDS SUMMARY | 2024-07-26 14:10 | XMS_ITS | Encounter Summary ---
Author Organization [facility] Address [address] [place] [address] Care Team Providers Care Acetylene Cylinder Packing Mixer Name Role Phone Marely Gibbons MD Primary Care Provider [phone] Reason for Visit * Reason Comments vagginal problems Encounter Details Date Type Department Care Team ([facility] st Contact Info) Description 07/17/2024 1:45 PM EST Office Visit Obstetrics and Gynecology [address] [phone] Lucy Mckeon MD [address] [place], [place] Lichen sclerosus et atrophicus (Primary Dx) [...] use. She voiced understanding. She was given [facility] information re: LS today and will call [...] is it? Lichen sclerosus (LS) is a skilled nursing skin disease that mainly affects the genital [...] rubbing with a towel. Or, use a unhairing inspector on a cool setting to dry the [...] or 7th GENERATION. 9. Do not use pzjk-jrr-rtfbdai creams or ointments until you ask your [...] will not increase your chances of infection. Mdcr-nmt-pxzbnfo water-based lubricants tend to dry out before [...] irritation. She was referred by Tony at [facility]. Notes a little over a year ago [...] infection. Having D&C polypectomy with Dr. Fried [facility] on 08/09. Review of Systems: As in [...] lymphadenopathy. PELVIC: External Genitalia: Exam chaperoned by medical record administrator. Abnormal. Almost complete phimosis of clitoral estevez, [...] use. She voiced understanding. She was given [facility] information re: LS today and will call with any questions. She will start Mycolog. I did discuss repeating a biopsy, but she did not feel she could tolerate it. Orders Placed This Encounter Procedures Culture genital If yeast, please speciate Order Specific Question: To which resulting agency are you sending this order? (Please ensure this field matches Resulting Agency below) Answer: [facility] ([facility]) [[id number]] Order Specific Question: Specimen Type: Answer: Swab [102] Order Specific Question: Release to patient Answer: Immediate [1] Follow up for 6 weeks, vulvar follow up 15 min any day. Lucy Mckeon MD documented in this encounter Plan of Treatment Upcoming Encounters Date Type Department Care Team (Late st Contact Info) Description 09/02/2024 10:45 AM EDT Office Visit Obstetrics and Gynecology [address] [phone] [place] [address] documented as of this encounter Procedures Procedure Name Priority Date/Time Associated Diagnosis Comments CULTURE GENITAL Routine 07/17/2024 2:24 PM EST Lichen sclerosus et atrophicus documented in this encounter Results * Culture genital (07/17/2024 2:24 PM EST) Culture, Genital No yeast, Beta Strep group B, Neisseria gonorrhoeae, Listeria, Gardnerella vaginalis, or other predominant potentially significant pathogens noted. 07/20/2024 11:01 AM EST [facility] Swab Vaginal structure / Unknown Non-blood Collection / Unknown 07/17/2024 2:24 PM EST 07/17/2024 2:24 PM EST us Lucy Mckeon MD LAB MICROBIOLOGY - GENERAL ORDERABLES Final Result [facility] [address] [place] [address], documented in this encounter Visit Diagnoses Diagnosis [...] day. added in this encounter Care Teams Acetylene Cylinder Packing Mixer Relationship Specialty Start Date End Date Marely Gibbons MD [address] [place] [address] Dr [address] [facility] [place] [address] PCP - General 07/19/22 documented as of this encounter
--- OUTSIDE RECORDS SUMMARY | 2024-07-26 14:10 | XMS_ITS | Clinical Summary ---
Author Organization [address] Address [address] [place] [phone] Phone Care Team Providers Care Custodian Athletic Equipment Name Role Phone Marely Gibbons MD Primary Care Provider [phone] Allergies No known active allergies Medications lisinopril [...] use. She voiced understanding. She was given [facility] information re: LS today and will call with any questions. She will start Mycolog. I did discuss repeating a biopsy, but she did not feel she could tolerate it. Encounters Date Type Department Care Team Description 07/17/2024 1:45 PM EST Office Visit Obstetrics and Gynecology - [address] [phone] Lucy Mckeon MD Lichen sclerosus et atrophicus (Primary Dx) 07/05/2024 Telephone Obstetrics and Gynecology - [address] [phone] Lucy Mckeon MD Appointment from Last 3 [...] AM EDT Office Visit Obstetrics and Gynecology [address] [phone] Lucy Mckeon MD [address] [place], [place] Health Maintenance Due Date Last Done [...] significant pathogens noted. 07/20/2024 11:01 AM EST [facility] Swab Vaginal structure / Unknown Non-blood Collection / Unknown 07/17/2024 2:24 PM EST 07/17/2024 2:24 PM EST Lucy Mckeon MD LAB MICROBIOLOGY - GENERAL ORDERABLES Final Result [facility] [address] [place] [address], from Last 3 Months Insurance [facility] [employer] Care Teams Custodian Athletic Equipment Relationship Specialty Start Date End Date Marely Gibbons MD [address] [place] [address] Dr [address] [facility] [place] [id number] PCP - General 07/19/22
[2024-08-02 07:57] VITALS: BMI 38.8
[2024-08-02 08:05] VITALS: BP 122/67; PULSE 87; RESP 18; TEMP 37.3; O2SAT 98
[2024-08-02 08:12] LABS: UPreg QC Valid YES; Urine Pregnancy NEGATIVE (NEGATIVE)
[2024-08-02] MEDS: Lactated Ringers 1,000 ML 100 ML IVCONT (08:14)
--- NOTE | 2024-08-02 08:33 | P.CONAN_ITS ---
Documented by User: Lucille Mehta NP 07/31/24 14:33 HPI - Anesthesia Eval Consult details Narrative: 49yo F for D&C Diagnostic Hysteroscopy,possible myomectomy Anesthesia Pre-Procedure Meds Is the patient on any of the following meds?: GLP1/DPP4 PMFSH Active Problems Active Problems: All Active Problems Encounter for well woman exam with routine gynecological exam (Acute) Abnormal uterine bleeding (AUB) (Acute) Endometrial polyp (Acute) Lesion of endometrium (Acute) Constipation (Acute) Hirsutism (Acute) Left adrenal mass (Acute) Adnexal cyst (Acute) Dysuria (Acute) Morbid obesity (Acute) Mastoiditis of right side (Acute) Flank pain (Acute) Low back pain (Acute) RUQ abdominal pain (Acute) Plantar fasciitis (Acute) Oral candidiasis (Acute) COVID-19 virus infection (Acute) Recurrent major depression (Acute) Vaginal pain (Acute) Myalgia (Acute) Folliculitis (Acute) Tobacco abuse (Acute) Abscess of thigh (Acute) Migraine (Acute) Burning sensation of vulva (Acute) GERD (gastroesophageal reflux disease) (Acute) Asthma (Acute) Hypercholesterolemia (Acute) Hypertension (Acute) Obesity (Acute) Type 2 diabetes mellitus with hyperglycemia (Acute) Past Medical History Medical History Hirsutism Morbid obesity Colon cancer screening Burning sensation of vulva Vulvar pain Hidradenitis suppurativa Acute bronchitis BRCA gene mutation negative Abdominal tenderness Acute vaginitis Smoking Fibromyalgia Pelvic pain in female At high risk for breast cancer GERD (gastroesophageal reflux disease) Migraine Asthma Vitamin B12 deficiency Vitamin D deficiency Anti-phospholipid syndrome PCOS (polycystic ovarian syndrome) Hypercholesterolemia Hypertension Type 2 diabetes mellitus with hyperglycemia Family History Family History Mother Cervical cancer Maternal Aunt Breast cancer Cervical cancer Maternal Aunt Breast cancer Cervical cancer Maternal Aunt Cervical cancer Maternal Aunt Cervical cancer Family history of problems with anesthesia: No Surgical History Surgical History H/O oral surgery H/O colonoscopy H/O endoscopy History of Problems with Anesthesia: No Social History Social History Housing: Apartment Housing Other:: 2019 Are you a primary childcare director to a significant other at home: No Do you presently have visiting nurse or other home services: No Alcohol intake: never Patient Tobacco Use Status: Current everyday Tobacco user Tobacco use type: Cigarette Cigarette Packs Per Day: 1.5 Cigarettes Per Day: 30.0 e-Cigarette/Vaping Use: Never Used Second Hand Smoke Exposure: No Use of substances other than those prescribed or required for medical reasons: No Have you been hit, kicked, punched, or otherwise hurt by someone within the past year? 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 Cognitive needs: No Hearing needs: No Vision needs: Yes (Glasses) Meds Allergies Allergy/AdvReac Type Severity Reaction Status Date / Time simvastatin Allergy Unknown Unknown Verified 07/23/24 14:07 sitagliptin [Januvia] Allergy Unknown nausea, Verified 07/23/24 14:07 vomits, cramps verapamil Allergy Unknown shortness Verified 07/23/24 14:07 of breath pioglitazone AdvReac Intermediate Abdominal Verified 07/23/24 14:07 Pain Home Medications ?Medication ?Instructions ?Recorded ?Confirmed ?Last Taken ?Type aspirin 81 mg tablet,delayed 81 mg PO DAILY 04/09/24 05/10/24 Unknown History release Assessment and Plan Assessment Anesthesia Assessment: Chart Reviewed Final Anesthetic Review Family History of Problems with Anesthesia: No History of Problems with Anesthesia: No Documented by User: Lissette Samayoa DO 08/02/24 08:33 HPI - Anesthesia Eval Anesthesia Pre-Procedure Meds Is the patient on any of the following meds?: GLP1/DPP4 [facility] Past Medical History Medical History Hirsutism Morbid obesity Colon cancer screening Burning sensation of vulva Vulvar pain Hidradenitis suppurativa Acute bronchitis BRCA gene mutation negative Abdominal tenderness Acute vaginitis Smoking Fibromyalgia Pelvic pain in female At high risk for breast cancer GERD (gastroesophageal reflux disease) Migraine Asthma Vitamin B12 deficiency Vitamin D deficiency Anti-phospholipid syndrome PCOS (polycystic ovarian syndrome) Hypercholesterolemia Hypertension Type 2 diabetes mellitus with hyperglycemia Family History Family History Mother Cervical cancer Maternal Aunt Breast cancer Cervical cancer Maternal Aunt Breast cancer Cervical cancer Maternal Aunt Cervical cancer Maternal Aunt Cervical cancer Family history of problems with anesthesia: No Surgical History Surgical History H/O oral surgery H/O colonoscopy H/O endoscopy History of Problems with Anesthesia: No Social History Social History Housing: Apartment Housing Other:: 2019 Are you a primary childcare director to a significant other at home: No Do you presently have visiting nurse or other home services: No Alcohol intake: never Patient Tobacco Use Status: Current everyday Tobacco user Tobacco use type: Cigarette Cigarette Packs Per Day: 1.5 Cigarettes Per Day: 30.0 e-Cigarette/Vaping Use: Never Used Second Hand Smoke Exposure: No Use of substances other than those prescribed or required for medical reasons: No Have you been hit, kicked, punched, or otherwise hurt by someone within the past year? 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 Cognitive needs: No Hearing needs: No Vision needs: Yes (Glasses) Meds Allergies Allergy/AdvReac Type Severity Reaction Status Date / Time simvastatin Allergy Unknown Unknown Verified 07/23/24 14:07 sitagliptin [Januvia] Allergy Unknown nausea, Verified 07/23/24 14:07 vomits, cramps verapamil Allergy Unknown shortness Verified 07/23/24 14:07 of breath pioglitazone AdvReac Intermediate Abdominal Verified 07/23/24 14:07 Pain Home Medications ?Medication ?Instructions ?Recorded ?Confirmed ?Last Taken ?Type aspirin 81 mg tablet,delayed 81 mg PO DAILY 04/09/24 05/10/24 Unknown History release Exam Exam Date and Time: 08/02/24 0830 Height,Weight and Vital Signs: Height 5 ft 3 in Weight 99.337 kg Vital Signs Temperature 99.1 F 08/02/24 08:05 Pulse Rate 87 08/02/24 08:05 Respiratory Rate 18 08/02/24 08:05 Blood Pressure 122/67 08/02/24 08:05 Pulse Oximetry 98 08/02/24 08:05 Oxygen Delivery Method Room Air 08/02/24 08:05 Temperature 99.1 F 08/02/24 08:05 Pulse Rate 87 08/02/24 08:05 Respiratory Rate 18 08/02/24 08:05 Blood Pressure 122/67 08/02/24 08:05 Pulse Oximetry 98 08/02/24 08:05 Oxygen Delivery Method Room Air 08/02/24 08:05 Airway Mallampati Class: II TM Dist: >3cm Neck ROM: Full Loose/Missing/Broken Teeth: Yes (edentulous top jaw, slightly loose bottom incisor with multiple missing teeth on bottom jaw) Heart: S1S2 Lungs: CTAB Assessment and Plan Assessment Anesthesia Assessment: Anesthesia Plan Discussed and Chart Reviewed Final Anesthetic Review Family History of Problems with Anesthesia: No History of Problems with Anesthesia: No NPO: Yes ASA Class: III Final Preanesthetic Review: No Changes in Pt Med Stat, Meds/Allgs Chart Reviewed, Consent Obtained/Reviewed and Anes Risks/Benef Reviewed Patient Risk: Intermediate Procedure Risk: Low Anesthetic Plan Anesthetic Plan: GA and Agree w/ Assess. and Plan Disposition: Standard PACU
--- NOTE | 2024-08-02 08:43 | MHC.SHP ---
Pre-Procedural Eval Section A - 24 Hr Update-Section A only Date of Service: 08/02/24 The patient is an INPATIENT: No Changes since office visit: No Cold of Flu in the past 2 weeks, No New Medical Problems, No Changes in Medication and No Patient answered all questions The patient has been examined within 24 hours of the surgical procedure. The History & Physical has been completed within 30 days and I have reviewed it.: Yes Section B - Complete if H&P > 30 days Chief Complaint: Abnormal uterine and vaginal bleeding, Allergies: Allergies Allergy/AdvReac Type Severity Reaction Status Date / Time simvastatin Allergy Unknown Unknown Verified 07/23/24 14:07 sitagliptin [Januvia] Allergy Unknown nausea, Verified 07/23/24 14:07 vomits, cramps verapamil Allergy Unknown shortness Verified 07/23/24 14:07 of breath pioglitazone AdvReac Intermediate Abdominal Verified 07/23/24 14:07 Pain Plan Diagnosis/Plan: Unchanged I have reviewed the history and physical and performed a pertinent physical examination on my patient. No changes have occurred unless specified. Time Spent With Patient Time: Total time managing care of this patient today ____ minutes.
[2024-08-02 09:04] LABS: Glucose, Whole Blood 122 mg/dL (60-115)
[2024-08-02 09:33] VITALS: BP 128/64; PULSE 76; RESP 12; TEMP 36.1; O2SAT 97
--- NOTE | 2024-08-02 09:36 | PM.OP ---
Brief Operative Note Date of Service: 08/02/24 Pre-op diagnosis: Abnormal uterine bleeding, endometrial polyp by ultrasound Post-op diagnosis: same (Normal endometrial cavity) Procedure: Hysteroscopy D&C Surgeon: Ruben Fried MD Anesthesia: GLMA Was an Attending Psychiatrist used for this Procedure?: No Estimated blood loss (mL): 0 Pathology: other (Endometrial Scrapping.) Condition: stable Disposition: PACU
--- NOTE | 2024-08-02 09:37 | P.OP_ITS ---
Operative Note Operative Note Date of Service: 08/02/24 Narrative: Preop Diagnosis: Abnormal uterine bleeding, endometrial polyp by ultrasound Operation: Diagnostic Hysteroscopy, Dilataion & Curettage Post Op Diagnosis: Normal endometrial and endocervical cavity, no evidence of pathology QBL: Minimal Anesthesia: GLMA Surgeon: Ruben Fried MD Kaitara Taraka: None Complication: None Pathology: Endometrial Scrapings Procedure: The patient was put in the dorsal lithotomy position, scrubbed, and draped in the usual manner. A sterile speculum was inserted in the patient's vagina. The anterior lip of the cervix was grasped with a single tooth tenaculum. The cervix was dilated up to 5 mm, then the scope was inserted in the patient's uterus. Inspection revealed normal endocervical & endometrial cavity with no evidence of pathology. The scope was taken out of the uterine cavity , then sharp curetting was carried on with no complications. At the end of the procedure, all instruments were taken out of the patient uterine and vaginal cavity. The single tooth tenaculum was removed and homeostasis was assured using pressure. The patient tolerated the procedure well and was transferred to the PACU in a stable condition.
[2024-08-02 09:38] VITALS: BP 115/62; PULSE 77; RESP 16; O2SAT 97
[2024-08-02 09:43] VITALS: BP 121/50; PULSE 80; RESP 16; O2SAT 97
[2024-08-02 09:48] VITALS: BP 125/59; PULSE 77; RESP 16; O2SAT 97
[2024-08-02 10:03] VITALS: BP 108/68; PULSE 75; RESP 16; O2SAT 97
== END 2024-08-02 10:39 | disposition home or self-care (01) ==
PROVIDERS: PCP Internal Medicine; Visit Provider Obstetrics & Gynecology
PROC: 0UDB8ZX Extraction of Endometrium, Via Natural or Artificial Opening Endoscopic, Diagnostic (ICD-10-PCS; CPT 58558; principal; 2024-08-02 09:30)
DX: N93.9 Abnormal uterine and vaginal bleeding, unspecified (principal); N88.8 Other specified noninflammatory disorders of cervix uteri; J45.909 Unspecified asthma, uncomplicated; L68.0 Hirsutism; L73.2 Hidradenitis suppurativa; M79.7 Fibromyalgia; E28.2 Polycystic ovarian syndrome; I10 Essential (primary) hypertension; E78.00 Pure hypercholesterolemia, unspecified; E11.65 Type 2 diabetes mellitus with hyperglycemia; E66.01 Morbid (severe) obesity due to excess calories; Z68.38 Body mass index [BMI] 38.0-38.9, adult; Z79.84 Long term (current) use of oral hypoglycemic drugs; Z79.85 Long-term (current) use of injectable non-insulin antidiabetic drugs; Z79.899 Other long term (current) drug therapy; F17.210 Nicotine dependence, cigarettes, uncomplicated
CPT/HCPCS: 58558; 81025; 82947; 88305; J1100; J1885; J2003; J2250; J2405; J2704; J3010

== ENCOUNTER → 2024-08-02 07:14 | Outpatient (BNV) | payer OTHER, SELFPAY | PROVIDERS: PCP Internal Medicine; Visit Provider Obstetrics & Gynecology | DX: N93.9 Abnormal uterine and vaginal bleeding, unspecified (principal) | CPT/HCPCS: 58558 ==

== ENCOUNTER 2024-08-13 12:31 | Outpatient (AMB) | payer OTHER, SELFPAY ==
--- NOTE | 2024-08-13 12:34 | MHC.PC.OV ---
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 Required: No Accompanied by: Self / Same As Patient Allergies simvastatin Allergy (Unknown, Verified 08/13/24 12:35) Unknown sitagliptin [Januvia] Allergy (Unknown, Verified 08/13/24 12:35) nausea, vomits, cramps verapamil Allergy (Unknown, Verified 08/13/24 12:35) shortness of breath pioglitazone Adverse Reaction (Intermediate, Verified 08/13/24 12:35) Abdominal Pain Medication List - Last Reconciled 08/13/24 by Marely Gibbons MD albuterol sulfate 90 mcg/actuation (Ventolin HFA) 2 puffs inhalation Q6H PRN aspirin 81 mg PO DAILY atorvastatin 10 mg PO DAILY azithromycin (Zithromax) For 250 mg dose pack: take 500 mg today (day 1), then 250 mg for 4 days (days 2-5) PO baclofen 10 mg PO TID betamethasone, augmented 0.05 % 1 appl topical BID 7 days bisacodyl (Dulcolax (bisacodyl)) 10 mg (2 x 5 mg) PO BEDTIME blood sugar diagnostic (FreeStyle Lite Strips) As directed check the blood sugar once a day blood-glucose meter (FreeStyle Lite Meter kit) check sugars once per day chlorhexidine gluconate 4% (Hibiclens) 1 appl topical .QOD 2 doses cyanocobalamin (vitamin B-12) 1,000 mcg PO DAILY dexamethasone 1 mg PO DAILY hydrocortisone 2.5% (Proctosol HC) 1 appl [place] BID-QID PRN lactulose 20 grams (30 mL) PO BID lancets (FreeStyle Lancets) As directed check blood sugar once a day lansoprazole 30 mg PO DAILY lidocaine 5% 2 patches topical DAILY lisinopril 40 mg PO DAILY 30 days metformin 500 mg PO BID methylcellulose (laxative) (Citrucel) 1,000 mg (2 x 500 mg) PO DAILY ondansetron 4 mg PO Q8H PRN sucralfate 1 g PO BID sumatriptan succinate 50 mg PO .QD PRN tirzepatide 12.5 mg (0.5 mL) subcut QWEEK 30 days tramadol 50 mg PO TID PRN 30 days Tobacco use date assessed: 08/13/24 Dental Screening Dental Screen Date: 08/13/24 Did you have a dental visit in the last 12 months?: No Did you have a dental problem in the last 6 months where you did not have access to dental care?: No Was dental information given to patient?: No HPI DM HPI Details congested,r ear pain chills, sore throat, , had sickness-. [facility] Medical History (Updated 08/13/24 @ 12:59 by Marely Gibbons MD) Colon cancer screening Hirsutism Morbid obesity Burning sensation of vulva Vulvar pain Hidradenitis suppurativa Acute bronchitis BRCA gene mutation negative Abdominal tenderness Acute vaginitis Smoking Fibromyalgia Pelvic pain in female At high risk for breast cancer GERD (gastroesophageal reflux disease) Migraine Asthma Vitamin B12 deficiency Vitamin D deficiency Anti-phospholipid syndrome PCOS (polycystic ovarian syndrome) Hypercholesterolemia Hypertension Type 2 diabetes mellitus with hyperglycemia Surgical History H/O oral surgery H/O colonoscopy H/O endoscopy Family History Mother Cervical cancer Maternal Aunt Breast cancer Cervical cancer Maternal Aunt Breast cancer Cervical cancer Maternal Aunt Cervical cancer Maternal Aunt Cervical cancer Social History Housing: Apartment Housing Other:: 2019 Are you a primary rn transitional care to a significant other at home: No Do you presently have visiting nurse or other home services: No Alcohol intake: never Patient Tobacco Use Status: Current everyday Tobacco user Tobacco use type: Cigarette Cigarette Packs Per Day: 1.5 Cigarettes Per Day: 30.0 e-Cigarette/Vaping Use: Never Used Second Hand Smoke Exposure: No service: No Current occupational status: employed 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 1. Little interest or pleasure in doing things: not at all 2. Feeling down, depressed, or hopeless: not at all 3. Trouble falling or staying asleep, or sleeping too much: not at all 4. Feeling tired or having little energy: not at all 5. Poor appetite or overeating: not at all 6. Feeling bad about yourself - or that you are a failure or have let yourself or your family down: not at all 7. Trouble concentrating on things, such as reading the newspaper or watching television: not at all 8. Moving or speaking so slowly that other people could have noticed. Or the opposite - being so fidgety or restless that you have been moving around a lot more than usual: not at all 9. Thoughts that you would be better off or of hurting yourself in some way: not at all Total score: 0 Depression Screening Interpretation: Negative Depression Screening Done: Yes Source: Developed by Drs. Lex Claudio, Maday Greenfield, Aaron Baxter and colleagues, with an educational luz maria from [email or web address]. Thrive Questionnaire Date Thrive assessed: 08/13/24 I am a: Patient What is your living situation today?: I have a steady place to live Within the past 12 months, did the food you bought not last and you didn't have the money to get more?: Never true Within the past 12 months, did you worry whether your food would run out before you got money to buy more?: Never true Do you have trouble paying for medicines?: No Do you have trouble getting transportation to medical appointments?: No Do you have trouble paying your heating and electricity bill?: No Do you have trouble taking care of your child, family member or friend?: No Do you have trouble with day-to-day activities such as bathing, preparing meals, shopping, managing finances, etc.?: No Are you currently unemployed and looking for a job?: No Are you interested in more education?: No Please select the resources that you would like help with: None Currently or been in a relationship where the following occur: No concerns reported THRIVE Score: 0 AUDIT C Alcohol Use Questionnaire (AUDIT-C) 1. How often do you have a drink containing alcohol?: Never 2. How many drinks containing alcohol do you have on a typical day when you are drinking?: 1 or 2 (0) 3. How often do you have six or more drinks on one occasion?: Never Total Score: 0 LUCY-7 AMB Questionnaire LUCY-7 Date LUCY - 7 assessed: 08/13/24 Feeling nervous, anxious, or on edge: 0 = Not at all Not being able to stop or control worryin = Not at all Worrying too much about different things: 0 = Not at all Trouble relaxin = Not at all Being so restless that it is hard to sit still: 0 = Not at all Becoming easily annoyed or irritable: 0 = Not at all Feeling afraid as if something awful might happen: 0 = Not at all Total LUCY-7 score (0-4 normal; 5-9 mild; 10-14 moderate; 15-21 severe): 0 Source: Developed by Drs. Lex Claudio, Maday Greenfield, Aaron Baxter and colleagues, with an educational luz maria from [email or web address]. Physical exam (Primary Care) Vital Signs: Last Vital Signs Pulse 92 08/13/24 12:35 BP 116/72 08/13/24 12:35 Pulse Ox 98 08/13/24 12:35 Oxygen Delivery Method Room Air 08/13/24 12:35 BMI result Body Mass Index 37.0 Tobacco/Smoking Status: Tobacco use Status Tobacco use date assessed 08/13/24 08/13/24 12:40 Patient Tobacco Use Status Current everyday Tobacco 08/13/24 12:40 Tobacco use type Cigarette 08/13/24 12:40 e-Cigarette/Vaping Use Never Used 08/13/24 12:40 PHQ-9: PHQ-9 Score PHQ-9: Total score 0 08/13/24 12:53 Depression Screening Interpretation: Negative Thrive Assessment: Date of Thrive Assessment Date Thrive assessed 08/13/24 08/13/24 12:40 Currently or been in a relationship where the following occur: No concerns reported Const General: alert; No acute distress Eyes Conjunctivae: conjunctivae normal Resp Auscultation: clear to auscultation bilaterally Cardio Rate: regular rate Rhythm: regular rhythm GI Inspection: Yes normal to inspection Extrem General: Yes normal to inspection and No edema Results AMB Hemoglobin A1c AMB Hemoglobin A1c 5.3 % Last Edit by STEPHANI Whittaker on 08/13/24 12:54 Results Reviewed Results Reviewed: Laboratory Last Values Hgb A1c (Clinic) 5.3 % (4.0-6.0) 08/13/24 12:50 Coding Level of Care Code Est Pt Level 4 (61189) Complex EM visit Add On G2211 Diagnoses Type 2 diabetes mellitus with hyperglycemia, without long-term current use of insulin E11.65 Diabetes mellitus chcf insulin use: without obstetrics teacher use Class 2 severe obesity due to excess calories with serious comorbidity and body mass index (BMI) of 39.0 to 39.9 in adult E66.812; E66.01; Z68.39 Body mass index: BMI 39.0-39.9 Obesity classification: adult class 2 (BMI 35 - 39.9) Obesity type: due to excess calories Serious obesity comorbidity presence: with serious comorbidity Primary hypertension I10 Hypertension type: primary hypertension Hypercholesterolemia E78.00 Asthma J45.909 Gastroesophageal reflux disease, unspecified whether esophagitis present K21.9 Esophagitis presence: esophagitis presence not specified Tobacco abuse Z72.0 Moderate episode of recurrent major depressive disorder F33.1 Active/Remission status: currently active Major depression episode severity: moderate Abnormal uterine bleeding (AUB) N93.9 Left adrenal mass E27.8 Colon cancer screening Z12.11 Cough R05.9 Assessment & Plan Assessment & Plan (1) Type 2 diabetes mellitus with hyperglycemia: Code(s): E11.65 - Type 2 diabetes mellitus with hyperglycemia Category: Medical Qualifiers: Diabetes mellitus chcf insulin use: without obstetrics teacher use Qualified Code(s): E11.65 - Type 2 diabetes mellitus with hyperglycemia Plan: Decrease the amount of carbohydrate intake, pasta, bread, rice and potatoes are all sugar and that is aside from all the sweet stuff, remember that fruits are good but they are Sweet also. Hemoglobin A1c goal of less than 6.5 patient on metformin 500 mg twice a day and there is appetite 12.5 mg once a week (2) Obesity: Code(s): E66.9 - Obesity, unspecified Category: Medical Qualifiers: Body mass index: BMI 39.0-39.9 Obesity classification: adult class 2 (BMI 35 - 39.9) Obesity type: due to excess calories Serious obesity comorbidity presence: with serious comorbidity Qualified Code(s): E66.812 - Obesity, class 2; E66.01 - Morbid (severe) obesity due to excess calories; Z68.39 - Body mass index [BMI] 39.0-39.9, adult Plan: Diet and exercise (3) Hypertension: Code(s): I10 - Essential (primary) hypertension Category: Medical Qualifiers: Hypertension type: primary hypertension Qualified Code(s): I10 - Essential (primary) hypertension Plan: Continue with blood pressure medication. Decrease salt intake and exercise takes lisinopril 40 mg once a day (4) Hypercholesterolemia: Code(s): E78.00 - Pure hypercholesterolemia, unspecified Category: Medical Plan: Avoid fried foods, chicken skin, eggs, butter margarine, pastries and meat. Be it pork or beef they have a lot of cholesterol last tested in April on atorvastatin 10 mg once a day (5) Asthma: Code(s): J45.909 - Unspecified asthma, uncomplicated Category: Medical Plan: Patient is strongly advised to stop smoking. Has albuterol inhaler as needed (6) GERD (gastroesophageal reflux disease): Code(s): K21.9 - Gastro-esophageal reflux disease without esophagitis Category: Medical Qualifiers: Esophagitis presence: esophagitis presence not specified Qualified Code(s): K21.9 - Gastro-esophageal reflux disease without esophagitis Plan: Avoid the foods that causes that usually spicy foods, tomato products, juices, coffee, soda and foods that your sensitive to. After eating do not lie down, allow 3-4 hours before in lie down. And keep the head of bed above 30 degrees to avoid the acid from going up. Strongly advised to stop smoking (7) Tobacco abuse: Code(s): Z72.0 - Tobacco use Category: Medical Plan: Patient is strongly advised to stop smoking (8) Recurrent major depression: Comment: Decline counseling July 2021 Code(s): F33.9 - Major depressive disorder, recurrent, unspecified Category: Medical Qualifiers: Active/Remission status: currently active Major depression episode severity: moderate Qualified Code(s): F33.1 - Major depressive disorder, recurrent, moderate Plan: Discussion about giving treatment for anxiety and depression (9) Abnormal uterine bleeding (AUB): Code(s): N93.9 - Abnormal uterine and vaginal bleeding, unspecified Category: Medical Plan: Patient follows up with Gynecology (10) Left adrenal mass: Code(s): E27.8 - Other specified disorders of adrenal gland Category: Medical Plan: Patient has an upcoming schedule with endocrinology (11) Colon cancer screening: Code(s): Z12.11 - Encounter for screening for malignant neoplasm of colon Category: Medical (12) Cough: Code(s): R05.9 - Cough, unspecified Category: Medical Plan History of Present Illness The patient is a 49-year-old female presenting for a follow-up visit concerning chronic conditions, including type 2 diabetes mellitus, essential hypertension, hypercholesterolemia, asthma, GERD, and assessment of respiratory symptoms following recent surgery. The diabetes is well controlled with metformin and terzepidide, evidenced by a normal hemoglobin A1c. The hypertension and hypercholesterolemia are managed with lisinopril and atorvastatin, respectively. Following a surgical procedure, the patient reports a constellation of symptoms including right ear pain radiating to the neck and face, alongside respiratory symptoms such as congestion, cough, and sore throat. These symptoms began the day after the procedure, with self-reported fever-like chills, although temperature has not been documented. A home COVID-19 test yielded negative results. The patient has achieved significant weight loss, partially attributed to the current medication regimen. She continues to smoke and is counseled on cessation to manage GERD and overall health. Follow-up care includes an endocrinology appointment and scheduled screenings such as colonoscopy and mammography. Health Maintenance - Diabetes management with hemoglobin A1c goals - Hypertension and hypercholesterolemia management - Asthma management with albuterol inhaler - GERD requiring smoking cessation - Scheduled endocrinology visit in August 2024 - Regular colonoscopy protocol (last in March 2023) - Mammogram pending Social History - Smoker; strongly advised cessation - Reports significant weight loss, with lifestyle modifications including medication (lactulose) - Lives with family; reported concerns about family exposure to MRSA - Relies on family for transportation Review of Systems - ENT: Reports right ear pain, sore throat, congestion - Respiratory: Reports cough, suspected fever with chills - Psych: Denies active treatment for anxiety and depression - Dermatological: Denies rashes Physical Exam - ENT- Inspection revealed redness in the right ear - Pulmonary- Noted cough Results - Diabetes: Hemoglobin A1c noted at 5.3% - Cholesterol: LDL last recorded at 87 mg/dL - Recent labs: July 2024 showed no anemia, mild leukocytosis Plan The management of the patient's chronic conditions, such as type 2 diabetes mellitus, essential hypertension, and hypercholesterolemia, remains on ongoing prescribed medications and lifestyle management. The current symptoms of right ear pain and respiratory distress will be initially managed with antibiotic treatment pending more comprehensive testing. Continued efforts towards weight reduction are encouraged given the successful progress noted, and smoking cessation is strongly advised to mitigate GERD effects. Scheduled follow-ups with specialists including endocrinology and gastroenterology aim to ensure continuous health monitoring. Patient was informed and verbally consented to the use of an ambient scribe for clinic note documentation during this visit. Discussion Notes I discussed with the patient the management of her chronic diseases and the importance of maintaining a strict regimen for blood pressure, cholesterol, and glucose control. We reviewed her current symptoms of right ear pain and respiratory discomfort. I recommended a Z-Quinton for initial management of suspected respiratory infection while understanding that further testing for respiratory viruses is necessary. The patient was informed of the importance of smoking cessation, especially considering her GERD and overall health, and was advised to perform follow-ups as scheduled with specialists. I encouraged weight management and reviewed her ongoing progress. Patient Instructions - Continue current diabetes, hypertension, and cholesterol medications - Take the prescribed Z-Quinton as directed - Schedule and undertake recommended screenings (COVID-19, flu, RSV) - Attend endocrinology appointment on August 22, 2024 - Follow up for scheduled colonoscopy and ensure mammogram is performed - Continue lifestyle changes to manage weight - Strongly urged to quit smoking - Report any persistent or worsening symptoms immediately Orders: Orders AMB Hemoglobin A1c Today Z13.9 - Encounter for screening, unspecified SARS-CoV2/FLU/RSV Today R05.9 - Cough, unspecified Medications: New azithromycin (Zithromax) For 250 mg dose pack: take 500 mg today (day 1), then 250 mg for 4 days (days 2-5) PO 6 tabs 0RF R05.9 - Cough, unspecified
[2024-08-13 12:35] VITALS: BP 116/72; PULSE 92; O2SAT 98; BMI 37.0
--- OUTSIDE RECORDS SUMMARY | 2024-08-13 15:06 | XMS_ITS | Encounter Summary ---
Author Organization [facility] Address [address] [place] [address] Care Team Providers Care Cardiographer Name Role Phone Marely Gibbons MD Primary Care Provider [phone] Reason for Visit * Reason Comments vagginal problems Encounter Details Date Type Department Care Team ([facility] st Contact Info) Description 07/17/2024 1:45 PM EST Office Visit Obstetrics and Gynecology [address] [phone] Lucy Mckeon MD [address] [place], [place] Lichen sclerosus et atrophicus (Primary Dx) Social History Tobacco Use Types Packs/Day Years Used Date Smoking Tobacco: Every Day Cigarettes 1.5 6.2 Started: 2019 Smokeless Tobacco: Never Tobacco Cessation:Ready [...] use. She voiced understanding. She was given [facility] information re: LS today and will call [...] is it? Lichen sclerosus (LS) is a laborer marine terminal skin disease that mainly affects the genital [...] rubbing with a towel. Or, use a business department chair on a cool setting to [...] or 7th GENERATION. 9. Do not use nqsd-zyz-oxowzoa creams or ointments until you ask your [...] will not increase your chances of infection. Bast-xxk-dcpkxod water-based lubricants tend to dry out before [...] irritation. She was referred by Tony at [facility]. Notes a little over a year ago [...] lymphadenopathy. PELVIC: External Genitalia: Exam chaperoned by biomedical electronics technician. Abnormal. Almost complete phimosis of clitoral estevez, [...] use. She voiced understanding. She was given [facility] information re: LS today and will call with any questions. She will start Mycolog. I did discuss repeating a biopsy, but she did not feel she could tolerate it. Orders Placed This Encounter Procedures Culture genital If yeast, please speciate Order Specific Question: To which resulting agency are you sending this order? (Please ensure this field matches Resulting Agency below) Answer: [facility] [[id number]] Order Specific Question: Specimen Type: Answer: Swab [102] Order Specific Question: Release to patient Answer: Immediate [1] Follow up for 6 weeks, vulvar follow up 15 min any day. Lucy Mckeon MD documented in this encounter Plan of Treatment Upcoming Encounters Date Type Department Care Team (Late st Contact Info) Description 09/02/2024 10:45 AM EDT Office Visit Obstetrics and Gynecology [address] [id number] Lcuy Mckeon MD [place], [place] documented as of this encounter Procedures Procedure Name Priority Date/Time Associated Diagnosis Comments CULTURE GENITAL Routine 07/17/2024 2:24 PM EST Lichen sclerosus et atrophicus documented in this encounter Results * Culture genital (07/17/2024 2:24 PM EST) Culture, Genital No yeast, Beta Strep group B, Neisseria gonorrhoeae, Listeria, Gardnerella vaginalis, or other predominant potentially significant pathogens noted. 07/20/2024 11:01 AM EST [facility] Swab Vaginal structure / Unknown Non-blood Collection / Unknown 07/17/2024 2:24 PM EST 07/17/2024 2:24 PM EST Lucy Mckeon MD LAB MICROBIOLOGY - GENERAL ORDERABLES Final Result [facility] [address] [place] [address], documented in this encounter Visit Diagnoses Diagnosis [...] day. added in this encounter Care Teams Cardiographer Relationship Specialty Start Date End Date Marely Gibbons MD [address] [place] [address] [address] [facility] [place] [address] PCP - General 07/19/22 documented as of this encounter
--- OUTSIDE RECORDS SUMMARY | 2024-08-13 15:06 | XMS_ITS | Clinical Summary ---
Author Organization [address] Address [address] [place] [phone] Phone Care Team Providers Care Underground Foreman Name Role Phone Marely Gibbons MD Primary Care Provider [phone] Allergies No known active allergies Medications lisinopril [...] use. She voiced understanding. She was given [facility] information re: LS today and will call with any questions. She will start Mycolog. I did discuss repeating a biopsy, but she did not feel she could tolerate it. Encounters Date Type Department Care Team Description 07/17/2024 1:45 PM EST Office Visit Obstetrics and Gynecology - [address] [phone] Lucy Mckeon MD Lichen sclerosus et atrophicus (Primary Dx) 07/05/2024 Telephone Obstetrics and Gynecology - [address] [phone] Lucy Mckeon MD Appointment from Last 3 [...] AM EDT Office Visit Obstetrics and Gynecology [address] [phone] Lucy Mckeon MD [address] [place], [place] Health Maintenance Due Date Last Done [...] significant pathogens noted. 07/20/2024 11:01 AM EST [facility] Swab Vaginal structure / Unknown Non-blood Collection / Unknown 07/17/2024 2:24 PM EST 07/17/2024 2:24 PM EST Lucy Mckeon MD LAB MICROBIOLOGY - GENERAL ORDERABLES Final Result [facility] ([facility] [address] [place] [address], from Last 3 Months Insurance [facility] [employer] Care Teams Underground Foreman Relationship Specialty Start Date End Date Marely Gibbons MD [address] [place] [address] Dr Hernandez [address] [facility] [place] [id number] PCP - General 07/19/22
== END 2024-08-13 13:04 | disposition home or self-care (01) ==
LOC: HO.HMCH 12:31
PROVIDERS: PCP Internal Medicine; Visit Provider Internal Medicine
DX: E11.65 Type 2 diabetes mellitus with hyperglycemia (principal); E66.01 Morbid (severe) obesity due to excess calories; Z68.39 Body mass index [BMI] 39.0-39.9, adult; F33.1 Major depressive disorder, recurrent, moderate; E27.8 Other specified disorders of adrenal gland; I10 Essential (primary) hypertension; E78.00 Pure hypercholesterolemia, unspecified; J45.909 Unspecified asthma, uncomplicated; K21.9 Gastro-esophageal reflux disease without esophagitis; Z72.0 Tobacco use; N93.9 Abnormal uterine and vaginal bleeding, unspecified; Z12.11 Encounter for screening for malignant neoplasm of colon; R05.9 Cough, unspecified

== ENCOUNTER → 2024-08-13 12:31 | Outpatient (BNVA) | payer OTHER, SELFPAY | PROVIDERS: PCP Internal Medicine; Visit Provider Internal Medicine | DX: E11.65 Type 2 diabetes mellitus with hyperglycemia (principal); E66.01 Morbid (severe) obesity due to excess calories; Z68.39 Body mass index [BMI] 39.0-39.9, adult; I10 Essential (primary) hypertension; E78.00 Pure hypercholesterolemia, unspecified; J45.909 Unspecified asthma, uncomplicated; K21.9 Gastro-esophageal reflux disease without esophagitis; F33.1 Major depressive disorder, recurrent, moderate; N93.9 Abnormal uterine and vaginal bleeding, unspecified; E27.8 Other specified disorders of adrenal gland; R05.9 Cough, unspecified; Z72.0 Tobacco use; Z71.3 Dietary counseling and surveillance; Z71.6 Tobacco abuse counseling | CPT/HCPCS: 83036; 99212 ==

== ENCOUNTER 2024-09-20 09:30 | Outpatient (REF) | payer OTHER, SELFPAY ==
--- OUTSIDE RECORDS SUMMARY | 2024-09-20 10:05 | XMS_ITS | Clinical Summary ---
Author Organization [address] Address [address] [place] [phone] Phone Care Team Providers Care Supervisor Tank Cleaning Name Role Phone Marely Gibbons MD Primary Care Provider [phone] Allergies No known active allergies Medications lisinopril [...] use. She voiced understanding. She was given [facility] information re: LS today and will call with any questions. She will start Mycolog. I did discuss repeating a biopsy, but she did not feel she could tolerate it. Encounters Date Type Department Care Team Description 07/17/2024 1:45 PM EST Office Visit Obstetrics and Gynecology - [address] [phone] Lucy Mckeon MD Lichen sclerosus et atrophicus (Primary Dx) 07/05/2024 Telephone Obstetrics and Gynecology - [address] [phone] Lucy Mckeon MD Appointment from Last 3 Months Surgical History Surgery Date Site/Laterality Comments SPINE [facility]IC INJECTION Medical History Medical History Date Comments Hypertension DM (diabetes mellitus), type 2 (CMS/HCC V24, CMS /HCC V28) Family History Medical History Relation Name Comments Ovarian cancer Mother Breast cancer Mother's Sister Colon cancer Neg Hx Pancreatic cancer Neg Hx Uterine cancer Neg Hx Relation Name Status Comments Mother Mother's Sister Social History Tobacco Use Types Packs/Day Years Used Date Smoking Tobacco: Every Day Cigarettes 1.5 6.3 Started: 2018 Smokeless Tobacco: Never Tobacco Cessation:Ready [...] Care Team (Late st Contact Info) Description 09/26/2024 10:15 AM EDT Office Visit Obstetrics and Gynecology [address] [phone] Lucy Mckeon MD [address] [place] [phone] Health Maintenance Due Date Last Done Comments [...] Influencers of Health Screening 06/30/2023 COVID-19 Vaccine (2023-2 5 season) 2024 Influenza Vaccine (Season Ended) 2025 HIB Vaccines Aged Out No longer eligi [...] age to complete this topic Meningococcal B Vaccine Aged Out No l onger eligible based on patient's age to complete [...] significant pathogens noted. 07/20/2024 11:01 AM EST [facility] Swab Vaginal structure / Unknown Non-blood Collection / Unknown 07/17/2024 2:24 PM EST 07/17/2024 2:24 PM EST us Lucy Mckeon MD LAB MICROBIOLOGY - GENERAL ORDERABLES Final Result [facility] ([facility] [address] [place] [address], from Last 3 Months Insurance [facility] [email or web address] Care Teams Supervisor Tank Cleaning Relationship Specialty Start Date End Date Marely Gibbons MD [address] [place] [address] Dr [address] [facility] [place] [address] PCP - General 07/19/22
[2024-09-20 13:45] LABS: Blood Urea Nitrogen 8 mg/dL (9-16); Estimated Glomerular Filt Rate > 60
== END 2024-09-20 09:31 | disposition home or self-care (01) ==
LOC: HO.HMGCLDS 09:30
PROVIDERS: PCP Internal Medicine; Visit Provider Student in an Organized Health Care Education/Training Program
DX: E27.8 Other specified disorders of adrenal gland (principal)
CPT/HCPCS: 36415; 82565; 84520

== ENCOUNTER 2024-09-27 08:08 | Outpatient (REF) | payer OTHER, SELFPAY ==
--- NOTE | ~2024-09-27 | CT_ITS ---
CLINICAL HISTORY: E27.8 - Other specified disorders of adrenal gland Exam: CT Abdomen with and without IV Contrast, attention adrenal glands. Comparison: None Findings: The liver density is homogeneous No biliary abnormalities The spleen is normal in size No pancreatic ductal dilatation The right adrenal gland is normal in size. The right adrenal gland is enlarged measuring 3.7 x 1.8 cm in the axial plane precontrast density of the left adrenal gland is, -10 HU. Postcontrast portal venous phase density of the left adrenal gland is 33 HU. Post-contrast 10 minutes delay left adrenal density is 6.0 HU. No hydronephrosis. No renal calculi. Normal bowel caliber in the upper abdomen No free fluid/free air No vascular abnormalities in the upper abdomen No suspicious skeletal lesions. Impression: The adrenal gland densities based on absolute washout calculation is highly suggestive of benign adrenal adenoma (greater than 60%). FYI: It should be noted that adrenal washout analysis has limited use when assessing incidental adrenal nodules less than 4 cm in size and greater than 10 Hounsfield units without known malignancy. ACR adrenal white paper recommendation is 1 year follow-up CT if not already done. This document has been electronically signed by: Fabian Avila MD on 09/27/2024 15:40:11
--- OUTSIDE RECORDS SUMMARY | 2024-09-27 08:10 | XMS_ITS | Clinical Summary ---
Author Organization [address] Address [address] [place] [phone] Phone Care Team Providers Care Coupon Collection Clerk Name Role Phone Marely Gibbons MD Primary Care Provider [phone] Allergies No known active allergies Medications lisinopril [...] use. She voiced understanding. She was given [facility] information re: LS today and will call with any questions. She will start Mycolog. I did discuss repeating a biopsy, but she did not feel she could tolerate it. Encounters Date Type Department Care Team Description 07/17/2024 1:45 PM EST Office Visit Obstetrics and Gynecology - [address] [phone] Lucy Mckeon MD Lichen sclerosus et atrophicus (Primary Dx) 07/05/2024 Telephone Obstetrics and Gynecology - [address] [phone] Lucy Mckeon MD Appointment from Last 3 [...] 07/17/2024 1:52 PM EST Plan of Treatment Health Maintenance Due Date Last Done Comments [...] significant pathogens noted. 07/20/2024 11:01 AM EST [facility] Swab Vaginal structure / Unknown Non-blood Collection / Unknown 07/17/2024 2:24 PM EST 07/17/2024 2:24 PM EST Lucy Mckeon MD LAB MICROBIOLOGY - GENERAL ORDERABLES Final Result [facility] ([facility]) [facility] [address] [place] [address], from Last 3 Months Insurance [facility] [employer] Care Teams Coupon Collection Clerk Relationship Specialty Start Date End Date Marely Gibbons MD [address] [place] [address] [address] Hernandez [address] [facility] [place] [address] PCP - General 07/19/22
[2024-09-27] MEDS: iohexoL 350 MG/ML 100 ML INFUS..BTL IV (09:00)
== END 2024-09-27 08:09 | disposition home or self-care (01) ==
LOC: HO.CT 08:08
PROVIDERS: PCP Internal Medicine; Visit Provider Student in an Organized Health Care Education/Training Program
DX: E27.8 Other specified disorders of adrenal gland (principal); L68.0 Hirsutism
CPT/HCPCS: 74170; Q9967

== ENCOUNTER → 2024-09-27 08:10 | Outpatient (BNV) | payer OTHER, SELFPAY | PROVIDERS: PCP Internal Medicine; Visit Provider Radiology Diagnostic Radiology | DX: E27.8 Other specified disorders of adrenal gland (principal) | CPT/HCPCS: 74170 ==

== ENCOUNTER 2024-09-30 15:14 | Outpatient (AMB) | payer OTHER, SELFPAY ==
--- NOTE | 2024-09-30 15:15 | MHC.OFFVIS ---
Intake Visit Reasons: post Allergies simvastatin Allergy (Unknown, Verified 08/13/24 12:35) Unknown sitagliptin [Januvia] Allergy (Unknown, Verified 08/13/24 12:35) nausea, vomits, cramps verapamil Allergy (Unknown, Verified 08/13/24 12:35) shortness of breath pioglitazone Adverse Reaction (Intermediate, Verified 08/13/24 12:35) Abdominal Pain HPI Comments Details: The patient is presenting post hysteroscopy D&C no complaints minimal vaginal bleeding no feverishness chills or abdominal pain. The pathology showed the following: Endometrium, curettage: Inactive endometrium; negative for atypia, hyperplasia or malignancy PFSH Medical History Colon cancer screening Hirsutism Morbid obesity Burning sensation of vulva Vulvar pain Hidradenitis suppurativa Acute bronchitis BRCA gene mutation negative Abdominal tenderness Acute vaginitis Smoking Fibromyalgia Pelvic pain in female At high risk for breast cancer GERD (gastroesophageal reflux disease) Migraine Asthma Vitamin B12 deficiency Vitamin D deficiency Anti-phospholipid syndrome PCOS (polycystic ovarian syndrome) Hypercholesterolemia Hypertension Type 2 diabetes mellitus with hyperglycemia Surgical History H/O oral surgery H/O colonoscopy H/O endoscopy Family History Mother Cervical cancer Maternal Aunt Breast cancer Cervical cancer Maternal Aunt Breast cancer Cervical cancer Maternal Aunt Cervical cancer Maternal Aunt Cervical cancer Social History Housing: Apartment Housing Other:: 2019 Are you a primary rn palliative care to a significant other at home: No Do you presently have visiting nurse or other home services: No Alcohol intake: never Patient Tobacco Use Status: Current everyday Tobacco user Tobacco use type: Cigarette Cigarette Packs Per Day: 1.5 Cigarettes Per Day: 30.0 e-Cigarette/Vaping Use: Never Used Second Hand Smoke Exposure: No service: No Current occupational status: employed 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 Cognitive needs: No Hearing needs: No Vision needs: Yes (Glasses) Review of Systems Const All systems reviewed & are unremarkable except as noted in HPI and below Reports as per HPI and Reports no additional complaints GI Reports no additional complaints Reports no additional complaints Telehealth Telehealth Telehealth Platform: Telephone Location of provider rendering services: practice address Location of patient: address on file Patient Identification confirmed using: Name, : Yes Telehealth method: video Patient verbally consented to treatment: Yes Patient verbally consented to billing insurance company: Yes Patient informed of any privacy concerns related to visit: Yes Minutes spent on Phone/Video with Pt.: 2 Assessment & Plan Assessment & Plan (1) Abnormal ultrasound of endometrium: Code(s): R93.5 - Abnormal findings on diagnostic imaging of other abdominal regions, including retroperitoneum Category: Medical Plan: Discussed with the patient the intraoperative findings showing normal endometrial cavity with no evidence of pathology, also discussed with the patient the pathology results showing inactive endometrium. The patient was reassured. All questions answered, the patient verbalized understanding. I spent a total of 20 minutes reviewing the chart, talking to the patient via video and documenting in the medical record. Coding Level of Care Code Tele Est Pt Level 3 (44263) Diagnoses Abnormal ultrasound of endometrium R93.5
--- OUTSIDE RECORDS SUMMARY | 2024-09-30 18:01 | XMS_ITS | Clinical Summary ---
Author Organization [address] Address [address] [place] [phone] Phone Care Team Providers Care Data Reduction Technician Name Role Phone Marely Gibbons MD Primary Care Provider [phone] Allergies No known active allergies Medications lisinopril [...] use. She voiced understanding. She was given [facility] information re: LS today and will call with any questions. She will start Mycolog. I did discuss repeating a biopsy, but she did not feel she could tolerate it. Encounters Date Type Department Care Team Description 07/17/2024 1:45 PM EST Office Visit Obstetrics and Gynecology - [address] [phone] Lucy Mckeon MD Lichen sclerosus et atrophicus (Primary Dx) 07/05/2024 Telephone Obstetrics and Gynecology - [address] [phone] Lucy Mckeon MD Appointment from Last 3 [...] significant pathogens noted. 07/20/2024 11:01 AM EST [facility] Swab Vaginal structure / Unknown Non-blood Collection / Unknown 07/17/2024 2:24 PM EST 07/17/2024 2:24 PM EST Lucy Mckeon MD LAB MICROBIOLOGY - GENERAL ORDERABLES Final Result [facility] ([facility]) [facility] [address] [place] [address], from Last 3 Months Insurance [facility] [employer] Care Teams Data Reduction Technician Relationship Specialty Start Date End Date Marely Gibbons MD [address] [place] [address] Dr Hernandez [address] [facility] [place] [address] PCP - General 07/19/22
== END 2024-09-30 15:36 | disposition home or self-care (01) ==
LOC: HO.HWS 15:14
PROVIDERS: PCP Internal Medicine; Visit Provider Obstetrics & Gynecology
DX: R93.5 Abnormal findings on diagnostic imaging of other abdominal regions, including retroperitoneum (principal)
CPT/HCPCS: 99213

== ENCOUNTER 2024-10-04 10:58 | Outpatient (AMB) | payer OTHER, SELFPAY ==
[2024-10-04 11:16] VITALS: BP 124/76; PULSE 73; O2SAT 97; BMI 35.8
--- NOTE | 2024-10-04 11:16 | MHC.OFFVIS ---
Vital Signs 10/04/24 11:16 Height 5 ft 3 in Weight 201 lb 15.095 oz BMI 35.8 BP 124/76 Blood Pressure Location Lt brachial Position Sitting Pulse 73 Pulse Source Pulse Oximeter Pulse Oximetry (%) 97 Oxygen Delivery Method Room Air Intake Visit Reasons: Left adrenal mass Intake Note: Patient present today for Left adrenal mass office visit. Quantitative Analyst Developer Required: No Accompanied by: Self / Same As Patient Allergies simvastatin Allergy (Unknown, Verified 10/04/24 11:20) Unknown sitagliptin [Januvia] Allergy (Unknown, Verified 10/04/24 11:20) nausea, vomits, cramps verapamil Allergy (Unknown, Verified 10/04/24 11:20) shortness of breath pioglitazone Adverse Reaction (Intermediate, Verified 10/04/24 11:20) Abdominal Pain Medication List - Last Reconciled 10/04/24 by Pooja Chi MD albuterol sulfate 90 mcg/actuation (Ventolin HFA) 2 puffs inhalation Q6H PRN aspirin 81 mg PO DAILY atorvastatin 10 mg PO DAILY azithromycin (Zithromax) For 250 mg dose pack: take 500 mg today (day 1), then 250 mg for 4 days (days 2-5) PO baclofen 10 mg PO TID betamethasone, augmented 0.05 % 1 appl topical BID 7 days bisacodyl (Dulcolax (bisacodyl)) 10 mg (2 x 5 mg) PO BEDTIME blood sugar diagnostic (FreeStyle Lite Strips) As directed check the blood sugar once a day blood-glucose meter (FreeStyle Lite Meter kit) check sugars once per day chlorhexidine gluconate 4% (Hibiclens) 1 appl topical .QOD 2 doses cyanocobalamin (vitamin B-12) 1,000 mcg PO DAILY dexamethasone 1 mg PO DAILY hydrocortisone 2.5% (Proctosol HC) 1 appl ND BID-QID PRN lactulose 20 grams (30 mL) PO BID lancets (FreeStyle Lancets) As directed check blood sugar once a day lansoprazole 30 mg PO DAILY lidocaine 5% 2 patches topical DAILY lisinopril 40 mg PO DAILY 30 days metformin 500 mg PO BID methylcellulose (laxative) (Citrucel) 1,000 mg (2 x 500 mg) PO DAILY ondansetron 4 mg PO Q8H PRN sucralfate 1 g PO BID sumatriptan succinate 50 mg PO .QD PRN tirzepatide 12.5 mg (0.5 mL) subcut QWEEK 30 days tramadol 50 mg PO TID PRN 30 days HPI Comments Details: 49 year female here today for follow up of adrenal incidentaloma. Her with sister Maday . HPI Underwent MRI of the abdomen/pelvis in March 2024 which showed an incidental 1.7 cm left adrenal gland nodule. History of HTN , diagnosed in early 20s On lisinopril 40 mg daily , mostly blood pressure at 130 systolic Stroke in 1998 in her 20s . Generalised residual weakness from the stroke . No neurological deficits per patient. Has type 2 DM on metformin 500 BID and Mounjaro , a1c 5.2 % from summer 2023 and lost 50 lbs over the last 2 years or so since 2020 Reports easy bruising Reports weakness in legs when she goes up stairs No fractures Was told she has PCOS in her teens. LMP : 04/01/24 Regular monthly periods at least since 2014 , didnt have periods for 12 years before that Was told she was artie menopausal ? Was atrributed to PCOS ?? Pregnancies : 1 , had a misscarriage in 2019, TTC for many years but was unable to. Last US was 2022 pelivis right 1.5 cm ovarian cyst but no significant abnormality . She has diagnosis of Anti phospholipid syndrome. HAs hirsutism : facial hair, abdomen , back , nipples Reports milky discharge from skin boils on the nipples. Reports no increase in ring size or shoe size . Reports acne on back and chest. Reports excessive sweating. HEadaches are chronic and severe, Diagnosed with migraines on sumatriptan. Schedueled for steroid shot on May 082023, has had cortisone shots in the past in back , knees . Long time ago nothing recently. Sometimes usues hydrocortison creams not recently. Has used prednisone in the past multiple courses for asthma, pneumonia , nothing recentlyt. Was on betamethasone cream a month ago for vulvar irritation. Endorses loss of libido . Was sexually active when was alive. She also reports extensive history of skin infections. She also has hidradenitis suppurativa. Interval history Labs done 04/16/2024 showed normal renin, aldosterone not elevated, normal 17 hydroxyprogesterone, normal plasma metanephrine normetanephrine levels, acth 11, cortisol 4.9, DHEA-S 66, normal testosterone androstenedione, prolactin, LH, FSH, estradiol, dexamethasone suppression test done 04/19/2024, no dexamethasone level drawn but ACTH suppressed to less than 5, random cortisol at 1.8. CT adrenal protocol done 09/27/2024 redemonstrated the 3.7 cm right adrenal gland nodule with features consistent with benign adenoma-10 Hounsfield units precontrast, with greater than 60% washout. Well-controlled diabetes mellitus and hypertension Lost 60 lbs over a year with diet , exercise and Monjaro , doing a good job No fractures Physical exam General: Facial rounding noted HEENT: normocephalic/atraumatic, has excessive facial hair Neck: supple, symmetrical, no thyromegaly , has dorsocervical or supraclavicular fat pads Cardiac: normal heart sounds Pulm: normal breath sounds B/L, no added breath sounds Abd: No purple striae noted, regular thin striae noted. Extremities: no edema, no signs of myxedema, does have some degree of proximal muscle weakness Skin: Multiple scarred over acne lesions noted. Laboratory Tests 11/09/20 12/30/21 11/03/22 15:46 14:04 15:06 Potassium 4.4 4.4 4.3 Creatinine 0.69 Hgb A1c (Clinic) TSH 1.14 Free T4 0.93 02/09/24 14:12 Potassium Creatinine Hgb A1c (Clinic) 5.2 TSH Free T4 Laboratory Tests 04/16/24 04/19/24 07/30/24 08:25 07:46 10:04 Sodium 138 Potassium 3.6 Renin 3.87 Aldosterone 2 TSH Estradiol Ultra LCMSMS 62 FSH 7.1 Luteinizing Hormone 4.8 Prolactin 8.2 Total Testosterone 18 Fr Testosterone Dialys 2.4 Androstenedione 65 DHEA Sulfate 66 Random Cortisol 4.9 1.8 ACTH 11 <5 L 17-Hydroxyprogesterone 28 Plasma Free Metaneph <25 Plasma Free Normeta 42 Plas Total Metaneph 42 Dexamethasone <20 <20 07/30/24 10:06 Sodium Potassium Renin Aldosterone TSH 0.64 Estradiol Ultra LCMSMS FSH Luteinizing Hormone Prolactin Total Testosterone Fr Testosterone Dialys Androstenedione DHEA Sulfate Random Cortisol ACTH 17-Hydroxyprogesterone Plasma Free Metaneph Plasma Free Normeta Plas Total Metaneph Dexamethasone CT adrenal 09/27/24 LINICAL HISTORY: E27.8 - Other specified disorders of adrenal gland Exam: CT Abdomen with and without IV Contrast, attention adrenal glands. Comparison: None Findings: The liver density is homogeneous No biliary abnormalities The spleen is normal in size No pancreatic ductal dilatation The right adrenal gland is normal in size. The right adrenal gland is enlarged measuring 3.7 x 1.8 cm in the axial plane precontrast density of the left adrenal gland is, -10 HU. Postcontrast portal venous phase density of the left adrenal gland is 33 HU. Post-contrast 10 minutes delay left adrenal density is 6.0 HU. No hydronephrosis. No renal calculi. Normal bowel caliber in the upper abdomen No free fluid/free air No vascular abnormalities in the upper abdomen No suspicious skeletal lesions. Impression: The adrenal gland densities based on absolute washout calculation is highly suggestive of benign adrenal adenoma (greater than 60%). FYI: It should be noted that adrenal washout analysis has limited use when assessing incidental adrenal nodules less than 4 cm in size and greater than 10 Hounsfield units without known malignancy. ACR adrenal white paper recommendation is 1 year follow-up CT if not already done. This document has been electronically signed by: Fabian Avila MD on 09/27/2024 15:40:11 ? Imaging MRI from March 2023 from [facility] Medical History Colon cancer screening Hirsutism Morbid obesity Burning sensation of vulva Vulvar pain Hidradenitis suppurativa Acute bronchitis BRCA gene mutation negative Abdominal tenderness Acute vaginitis Smoking Fibromyalgia Pelvic pain in female At high risk for breast cancer GERD (gastroesophageal reflux disease) Migraine Asthma Vitamin B12 deficiency Vitamin D deficiency Anti-phospholipid syndrome PCOS (polycystic ovarian syndrome) Hypercholesterolemia Hypertension Type 2 diabetes mellitus with hyperglycemia Surgical History H/O oral surgery H/O colonoscopy H/O endoscopy Family History Mother Cervical cancer Maternal Aunt Breast cancer Cervical cancer Maternal Aunt Breast cancer Cervical cancer Maternal Aunt Cervical cancer Maternal Aunt Cervical cancer Social History Housing: Apartment Housing Other:: 2019 Are you a primary workforce investment act career manager to a significant other at home: No Do you presently have visiting nurse or other home services: No Alcohol intake: never Patient Tobacco Use Status: Current everyday Tobacco user Tobacco use type: Cigarette Cigarette Packs Per Day: 1.5 Cigarettes Per Day: 30.0 e-Cigarette/Vaping Use: Never Used Second Hand Smoke Exposure: No service: No Current occupational status: employed 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 CT adrenal protocol done 09/27/2024 redemonstrated the 3.7 cm right adrenal gland nodule with features consistent with benign adenoma-10 Hounsfield units precontrast, with greater than 60% washout. We will plan to repeat imaging in 1 year in September 2025. Labs done 04/16/2024 showed normal renin, aldosterone not elevated, normal , normal plasma metanephrine normetanephrine levels, acth 11, cortisol 4.9, DHEA-S 66, , dexamethasone suppression test done 04/19/2024, no dexamethasone level drawn but ACTH suppressed to less than 5, random cortisol at 1.8. This is just at the borderline of normal. She does have type 2 diabetes mellitus, though well-controlled with recent weight loss on Mounjaro. Hypertension is also well-controlled. No history of fractures recently. However neck exam she does have proximal muscle weakness, she does have facial rounding, reports easy bruising, has history of skin infections, though she has used multiple courses of different modes of steroids in the past for back pain, knee pain, skin infections/lesions. She has also used multiple courses of prednisone in the past for asthma exacerbations and has had joint injections with steroids in the past. Some of her features could be excess exposure to cortisol from exogenous steroids over her lifetime. However no recent steroid use in the past month. I would like to check a 24 hour urine cortisol level as well as salivary cortisol level X 2. ? Plan: -ordered 24 hour urine cortisol level -ordered salivary cortisol X 2 -follow up in 6 weeks to discuss results (2) Hirsutism: Code(s): L68.0 - Hirsutism Category: Medical Plan: She is also noted to have significant hirsutism, has had history of infertility, with 1 miscarriage in the past, and she reports she did not have a period for 12 years before the restarted in 2014. Now she has regular periods signs of possible hyperandrogenism, Ultrasound from 2022 of her ovaries did show an enlarged ovaries overall in volume of 11 cc. Right ovarian 1.5 cm cyst also noted but no other obvious abnormality. Currently she is having regular periods. Labs from 04/16/2025 showed normal estradiol, FSH, LH, normal testosterone, androstenedione, prolactin levels. These are reassuring. Maybe she just has a idiopathic hirsutism. However we will evaluate for hypercortisolism as described above. Plan I spent 30 minutes in reviewing the record, seeing the patient and documenting in the medical record. Orders: Orders Saliva Cortisol Today E27.8 - Other specified disorders of adrenal gland Creatinine, 24 Hr Group Today E27.8 - Other specified disorders of adrenal gland Cortisol, Free 24Hr Urine Today E27.8 - Other specified disorders of adrenal gland Saliva Cortisol 10/07/24 E27.8 - Other specified disorders of adrenal gland, R79.89 - Other specified abnormal findings of blood chemistry Medications: Discontinued dexamethasone Take at 11 pm at night and go for blood work next day at 8 AM Discontinued Reason: Patient Completed Course 1 mg PO DAILY 1 tab 0RF Patient Instructions: 24 hr urine collection instructions You have been asked to collect your urine for 24 hours to assess for cortisol excretion. You must choose a 24 hour period of time when you will be home. The morning of the first day, DISCARD the FIRST morning void and then note the time. You will collect every single void from then on for 24 hours. For example, if you wake up at 6am and urinate, flush down that void. You will then collect every drop of urine all day and all night through 6am the following day. You will urinate one last time at 6am for the collection. The jug of urine must be kept in the refrigerator until you bring it to the lab. Do 2 salivary cortisol samples at midnight Salivary cortisol collection instructions Specimen requirement Collect 1 mL or more of Saliva/fully saturated swab. Do not eat for 60 minutes prior to collecting specimen. Do not consume alcohol 12 hours prior to collecting specimen. Do not brush teeth immediately before collecting specimen as gums may bleed in contaminated specimen causing a falsely elevated result. Rinse mouth thoroughly with water 10 minutes before collecting specimen. Recommend collection time is generally between 11 PM and 1 AM. Be sure to clearly label each tube collected with correct date and time. Specimen visibly contaminated with blood, cellular debris, food particles or mucus must be recollected. Specimen collection 1. ?Label the exterior tube after salivette collection device using waterproof pen with your [patient] first and last name as well as date and time collected. 2. ?Remove the stopper of the container to expose the swab. ?Do not remove the insert from the tube. ?This is necessary for processing the specimen. 3. ?Place swab directly into the mouth by tipping the tube so that the swab falls into the mouth. The swab should be placed under the tongue or allow to move freely across the tongue. ?Do not place a swab between cheek and gum. ?Gently chewing the swab is acceptable. 4. ?Keep the swab in your mouth for 2 to 3 minutes. ?Be sure the swab is completely saturated with saliva; this will ensure that enough volume is collected. 5. ?Return the swab back into the insert. ?Do not touch the swab with the fingers. ?Do not remove the insert from the tube. 6. ?Replace the stopper, ensuring that the cap is tight [the cap will click when inserted properly] 7. ?Return salivette collection device to the lab. Preparation instruction If multiple specimens are submitted, ensure that all tubes are clearly labeled with correct time and date. Submit specimen in salivette collection device only. ?Other containers are not acceptable. Coding Level of Care Code Est Pt Level 4 (55462) Diagnoses Left adrenal mass E27.8 Hirsutism L68.0 Time Spent (min) 30
--- OUTSIDE RECORDS SUMMARY | 2024-10-04 12:05 | XMS_ITS | Clinical Summary ---
Author Organization [address] Address [address] [place] [phone] Phone Care Team Providers Care Web Communications Specialist Name Role Phone Marely Gibbons MD Primary Care Provider [phone] Allergies No known active allergies Medications lisinopril [...] use. She voiced understanding. She was given [facility] information re: LS today and will call with any questions. She will start Mycolog. I did discuss repeating a biopsy, but she did not feel she could tolerate it. Encounters Date Type Department Care Team Description 07/17/2024 1:45 PM EST Office Visit Obstetrics and Gynecology [address] [id number] Lucy Mckeon MD Lichen sclerosus et atrophicus (Primary Dx) from Last 3 Months Surgical History Surgery [...] Labor Labor/2nd/3rd Weight Sex Type Anes PTL Ariln A1 A5 Name Clin SAB Last Filed [...] Influencers of Health Screening 06/30/2023 COVID-19 Vaccine (1 - 2023-2 5 season) 2024 Influenza Vaccine (Season Ended) [...] significant pathogens noted. 07/20/2024 11:01 AM EST [facility] Swab Vaginal structure / Unknown Non-blood Collection / Unknown 07/17/2024 2:24 PM EST 07/17/2024 2:24 PM EST us Lucy Mckeon MD LAB MICROBIOLOGY - GENERAL ORDERABLES Final Result [facility] [address] [place] [address], [place] [phone] from Last 3 Months Insurance [facility] [employer] Care Teams Web Communications Specialist Relationship Specialty Start Date End Date Marely Gibbons MD [address] [place] [address] Dr [address] [facility] [place] [address] PCP - General 07/19/22
== END 2024-10-04 11:52 | disposition home or self-care (01) ==
LOC: HO.ENCR 10:58
PROVIDERS: PCP Internal Medicine; Visit Provider Student in an Organized Health Care Education/Training Program
DX: E27.8 Other specified disorders of adrenal gland (principal); L68.0 Hirsutism
CPT/HCPCS: 99214

== ENCOUNTER → 2024-10-04 10:58 | Outpatient (BNVA) | payer OTHER, SELFPAY | PROVIDERS: PCP Internal Medicine; Visit Provider Student in an Organized Health Care Education/Training Program | DX: E27.8 Other specified disorders of adrenal gland (principal); L68.0 Hirsutism; R79.89 Other specified abnormal findings of blood chemistry | CPT/HCPCS: 99212 ==

== ENCOUNTER 2024-11-13 | Outpatient (REF) | payer OTHER, SELFPAY ==
[2024-12-09 01:54] LABS: Saliva Cortisol 0.06 mcg/dL
== END 2024-11-13 00:01 | disposition home or self-care (01) ==
LOC: HO.LNP
PROVIDERS: Visit Provider Student in an Organized Health Care Education/Training Program
DX: E27.8 Other specified disorders of adrenal gland (principal)
CPT/HCPCS: 82530

== ENCOUNTER 2024-11-14 00:02 | Outpatient (REF) | payer OTHER, SELFPAY ==
[2024-12-09 01:54] LABS: Saliva Cortisol 0.06 mcg/dL
== END 2024-11-14 00:03 | disposition home or self-care (01) ==
LOC: HO.LNP 00:02
PROVIDERS: Visit Provider Student in an Organized Health Care Education/Training Program
DX: E27.8 Other specified disorders of adrenal gland (principal); R79.89 Other specified abnormal findings of blood chemistry
CPT/HCPCS: 82530

== ENCOUNTER 2024-11-16 12:10 | Outpatient (REF) | payer OTHER, SELFPAY ==
[2024-11-16 13:10] LABS: Creatinine, mg/dL 34.35
[2024-11-16 13:48] LABS: Total Volume 24 Hour Urine 3032 mL
[2024-11-23 14:53] LABS: Cortisol Free, 24 Hr Urine 29.5 mcg/24 h (4.0-50.0); Creatinine, 24 Hr Urine 1.14 g/24 h (0.50-2.15); Total Volume, 24 Hr Urine 3032 mL
== END 2024-11-16 12:11 | disposition home or self-care (01) ==
LOC: HO.LNP 12:10
PROVIDERS: Visit Provider Student in an Organized Health Care Education/Training Program
DX: E27.8 Other specified disorders of adrenal gland (principal)
CPT/HCPCS: 82530; 82570

== ENCOUNTER 2024-11-25 11:04 | Outpatient (AMB) | payer OTHER, SELFPAY ==
--- NOTE | 2024-11-25 11:12 | A.OFFPC_ITS ---
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 Allergies simvastatin Allergy (Unknown, Verified 11/25/24 11:13) Unknown sitagliptin (Januvia) Allergy (Unknown, Verified 11/25/24 11:13) nausea, vomits, cramps verapamil Allergy (Unknown, Verified 11/25/24 11:13) shortness of breath pioglitazone Adverse Reaction (Intermediate, Verified 11/25/24 11:13) Abdominal Pain Medication List - Last Reconciled 11/25/24 by Marely Gibbons MD albuterol sulfate 90 mcg/actuation (Ventolin HFA) 2 puffs inhalation Q6H PRN aspirin 81 mg PO DAILY atorvastatin 10 mg PO DAILY baclofen 10 mg PO TID betamethasone, augmented 0.05 % 1 appl topical BID 7 days bisacodyl (Dulcolax (bisacodyl)) 10 mg (2 x 5 mg) PO BEDTIME blood sugar diagnostic (FreeStyle Lite Strips) As directed check the blood sugar once a day blood-glucose meter (FreeStyle Lite Meter kit) check sugars once per day brimonidine 0.2% 1 drp ophthalmic (eye) BID chlorhexidine gluconate 4% (Hibiclens) 1 appl topical .QOD 2 doses cyanocobalamin (vitamin B-12) 1,000 mcg PO DAILY hydrocortisone 2.5% (Proctosol HC) 1 appl [place] BID-QID PRN lactulose 20 grams (30 mL) PO BID lancets (FreeStyle Lancets) As directed check blood sugar once a day lansoprazole 30 mg PO DAILY lidocaine 5% 2 patches topical DAILY lisinopril 40 mg PO DAILY 30 days loratadine 10 mg PO DAILY metformin 500 mg PO BID methylcellulose (laxative) (Citrucel) 1,000 mg (2 x 500 mg) PO DAILY ondansetron 4 mg PO Q8H PRN sucralfate 1 g PO BID sumatriptan succinate 50 mg PO .QD PRN tirzepatide 12.5 mg (0.5 mL) subcut QWEEK 30 days tramadol 50 mg PO TID PRN 30 days Tobacco use date assessed: 11/25/24 Dental Screening Dental Screen Date: 11/25/24 Did you have a dental visit in the last 12 months?: Yes Did you have a dental problem in the last 6 months where you did not have access to dental care?: No Was dental information given to patient?: Patient has dentist [facility] Medical History High serum cortisol Colon cancer screening Hirsutism Morbid obesity Burning sensation of vulva Vulvar pain Hidradenitis suppurativa Acute bronchitis BRCA gene mutation negative Abdominal tenderness Acute vaginitis Smoking Fibromyalgia Pelvic pain in female At high risk for breast cancer GERD (gastroesophageal reflux disease) Migraine Asthma Vitamin B12 deficiency Vitamin D deficiency Anti-phospholipid syndrome PCOS (polycystic ovarian syndrome) Hypercholesterolemia Hypertension Type 2 diabetes mellitus with hyperglycemia Surgical History H/O oral surgery H/O colonoscopy H/O endoscopy Family History Mother Cervical cancer Maternal Aunt Breast cancer Cervical cancer Maternal Aunt Breast cancer Cervical cancer Maternal Aunt Cervical cancer Maternal Aunt Cervical cancer Social History Housing: Apartment Housing Other:: 2019 Are you a primary care program resident to a significant other at home: No Do you presently have visiting nurse or other home services: No Alcohol intake: never Patient Tobacco Use Status: Current everyday Tobacco user Tobacco use type: Cigarette Cigarette Packs Per Day: 1.5 Cigarettes Per Day: 30.0 e-Cigarette/Vaping Use: Never Used Second Hand Smoke Exposure: No service: No Current occupational status: employed 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 1. Little interest or pleasure in doing things: not at all 2. Feeling down, depressed, or hopeless: not at all 3. Trouble falling or staying asleep, or sleeping too much: not at all 4. Feeling tired or having little energy: not at all 5. Poor appetite or overeating: not at all 6. Feeling bad about yourself - or that you are a failure or have let yourself or your family down: not at all 7. Trouble concentrating on things, such as reading the newspaper or watching television: not at all 8. Moving or speaking so slowly that other people could have noticed. Or the opposite - being so fidgety or restless that you have been moving around a lot more than usual: not at all 9. Thoughts that you would be better off or of hurting yourself in some way: not at all Total score: 0 Source: Developed by Drs. Lex Claudio, Maday Greenfield, Aaron Baxter and colleagues, with an educational luz maria from [employer]. Thrive Questionnaire Date Thrive assessed: 08/13/24 I am a: Patient What is your living situation today?: I choose not to answer this question Within the past 12 months, did the food you bought not last and you didn't have the money to get more?: I choose not to answer this question Within the past 12 months, did you worry whether your food would run out before you got money to buy more?: I choose not to answer this question Do you have trouble paying for medicines?: No Do you have trouble getting transportation to medical appointments?: No Do you have trouble paying your heating and electricity bill?: No Do you have trouble taking care of your child, family member or friend?: I choose not to answer this question Do you have trouble with day-to-day activities such as bathing, preparing meals, shopping, managing finances, etc.?: I choose not to answer this question Are you currently unemployed and looking for a job?: I choose not to answer this question Are you interested in more education?: I choose not to answer this question Please select the resources that you would like help with: None Currently or been in a relationship where the following occur: I choose not to answer THRIVE Score: 0 AUDIT C Alcohol Use Questionnaire (AUDIT-C) 1. How often do you have a drink containing alcohol?: Never 3. How often do you have six or more drinks on one occasion?: Never Total Score: 0 LUCY-7 AMB Questionnaire LUCY-7 Date LUCY - 7 assessed: 08/13/24 Feeling nervous, anxious, or on edge: 0 = Not at all Not being able to stop or control worryin = Not at all Worrying too much about different things: 0 = Not at all Trouble relaxin = Not at all Being so restless that it is hard to sit still: 0 = Not at all Becoming easily annoyed or irritable: 0 = Not at all Feeling afraid as if something awful might happen: 0 = Not at all Total LUCY-7 score (0-4 normal; 5-9 mild; 10-14 moderate; 15-21 severe): 0 Source: Developed by Drs. Lex Claudio, Maday Greenfield, Aaron Baxter and colleagues, with an educational luz maria from [employer]. Physical exam (Primary Care) Vital Signs: Last Vital Signs Temp 97.3 F 11/25/24 11:13 Pulse 100 11/25/24 11:13 BP 128/64 11/25/24 11:13 Pulse Ox 98 11/25/24 11:13 Oxygen Delivery Method Room Air 11/25/24 11:13 BMI result Body Mass Index 35.0 Tobacco/Smoking Status: Tobacco use Status Tobacco use date assessed 11/25/24 11/25/24 11:14 Patient Tobacco Use Status Current everyday Tobacco 11/25/24 11:14 Tobacco use type Cigarette 11/25/24 11:14 e-Cigarette/Vaping Use Never Used 11/25/24 11:14 PHQ-9: PHQ-9 Score PHQ-9: Total score 0 11/25/24 11:58 Thrive Assessment: Date of Thrive Assessment Date Thrive assessed 08/13/24 11/25/24 11:14 Currently or been in a relationship where the following occur: I choose not to answer Const General: alert; No acute distress Eyes Conjunctivae: conjunctivae normal Resp Auscultation: clear to auscultation bilaterally Cardio Rate: regular rate Rhythm: regular rhythm GI Inspection: Yes normal to inspection Extrem General: Yes normal to inspection and No edema Results AMB Hemoglobin A1c AMB Hemoglobin A1c 5.6 % Last Edit by Aminta Silva CMA on 11/25/24 11:26 Results Reviewed Results Reviewed: Laboratory Last Values Hgb A1c (Clinic) 5.6 % (4.0-6.0) 11/25/24 11:14 Coding Level of Care Code Est Pt Level 4 (36099) Complex EM visit Add On G2211 Diagnoses Type 2 diabetes mellitus with hyperglycemia, without long-term current use of insulin E11.65 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 insulin use: without correction use Class 2 severe obesity due to excess calories with serious comorbidity and body mass index (BMI) of 39.0 to 39.9 in adult E66.812; E66.01; Z68.39 Body mass index: BMI 39.0-39.9 Obesity classification: adult class 2 (BMI 35 - 39.9) Obesity type: due to excess calories Serious obesity comorbidity presence: with serious comorbidity Gastroesophageal reflux disease, unspecified whether esophagitis present K21.9 Esophagitis presence: esophagitis presence not specified Hypercholesterolemia E78.00 Primary hypertension I10 Hypertension type: primary hypertension Moderate episode of recurrent major depressive disorder F33.1 Active/Remission status: currently active Major depression episode severity: moderate Tobacco abuse Z72.0 Hip pain, right M25.551 Right knee pain M25.561 Pain of right mastoid H92.01 Assessment & Plan Assessment & Plan (1) Type 2 diabetes mellitus with hyperglycemia: Code(s): E11.65 - Type 2 diabetes mellitus with hyperglycemia Category: Medical Qualifiers: 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 insulin use: without correction use Qualified Code(s): E11.65 - Type 2 diabetes mellitus with hyperglycemia Plan: Decrease the amount of carbohydrate intake, pasta, bread, rice and potatoes are all sugar and that is aside from all the sweet stuff, remember that fruits are good but they are Sweet also. Hemoglobin A1c goal of less than 6.5. Patient is controlled presently on tirzepatide and metformin (2) Obesity: Code(s): E66.9 - Obesity, unspecified Category: Medical Qualifiers: Body mass index: BMI 39.0-39.9 Obesity classification: adult class 2 (BMI 35 - 39.9) Obesity type: due to excess calories Serious obesity comorbidity presence: with serious comorbidity Qualified Code(s): E66.812 - Obesity, class 2; E66.01 - Morbid (severe) obesity due to excess calories; Z68.39 - Body mass index [BMI] 39.0-39.9, adult Plan: Diet and exercise noted weight loss on tirzepatide (3) GERD (gastroesophageal reflux disease): Code(s): K21.9 - Gastro-esophageal reflux disease without esophagitis Category: Medical Qualifiers: Esophagitis presence: esophagitis presence not specified Qualified Code(s): K21.9 - Gastro-esophageal reflux disease without esophagitis Plan: Avoid the foods that causes that usually spicy foods, tomato products, juices, coffee, soda and foods that your sensitive to. After eating do not lie down, allow 3-4 hours before in lie down. And keep the head of bed above 30 degrees to avoid the acid from going up. (4) Hypercholesterolemia: Code(s): E78.00 - Pure hypercholesterolemia, unspecified Category: Medical Plan: Avoid fried foods, chicken skin, eggs, butter margarine, pastries and meat. Be it pork or beef they have a lot of cholesterol on atorvastatin 10 mg once a day (5) Hypertension: Code(s): I10 - Essential (primary) hypertension Category: Medical Qualifiers: Hypertension type: primary hypertension Qualified Code(s): I10 - Ess ential (primary) hypertension Plan: Continue with blood pressure medication. Decrease salt intake and exercise patient on lisinopril 40 mg once a day (6) Recurrent major depression: Comment: Decline counseling July 2021 Code(s): F33.9 - Major depressive disorder, recurrent, unspecified Category: Medical Qualifiers: Active/Remission status: currently active Major depression episode severity: moderate Qualified Code(s): F33.1 - Major depressive disorder, recurrent, moderate Plan: Continue with counseling and therapy (7) Tobacco abuse: Code(s): Z72.0 - Tobacco use Category: Medical Plan: Patient is strongly advised to stop smoking! PAtient not ready for stopping. 1.5 pack a day (8) Hip pain, right: Code(s): M25.551 - Pain in right hip Category: Medical (9) Right knee pain: Code(s): M25.561 - Pain in right knee Category: Medical (10) Pain of right mastoid: Code(s): H92.01 - Otalgia, right ear Category: Medical Plan History of Present Illness The patient is a 49-year-old female presenting for a follow-up visit to manage multiple chronic conditions including diabetes mellitus, hypertension, hypercholesterolemia, asthma, and recurrent major depression. The patient has a history of diabetes mellitus, with her blood sugar currently under control, as indicated by an A1c of 5.6%. She is currently on Tirzepatide and Metformin, which have contributed to a significant weight loss of almost 70 pounds. Her diabetes management plan includes maintaining an A1c goal of less than 6.5%. The patient is also managing hypertension with Lisinopril 40 mg daily, and her blood pressure is reported to be well-controlled. For hypercholesterolemia, the patient is on Atorvastatin 10 mg daily. The patient has a history of asthma, which is part of her chronic condition management. The patient has recurrent major depression and is continuing with counseling and therapy. The patient has a left adrenal mass and is undergoing workup for cortisol levels. She has been diagnosed with glaucoma and cataracts, with current treatment focusing on reducing intraocular pressure. The patient reports a history of mastoiditis, which was treated with antibiotics, but she did not receive a follow-up scan. She experiences persistent pain on the right side, and a CT scan has been requested to evaluate the mastoid region. The patient is obese but has noted a 4-pound weight loss since October 2024. Preventative care measures discussed include the need for a repeat colon cancer screening and a mammogram, both of which are due. Health Maintenance - Colon cancer screening: Repeat test needed - Mammogram: Due for repeat screening - Weight management: Noted 4-pound weight loss since October 2024 - Smoking cessation: Strongly advised to stop smoking Social History - Smoking: Patient is a smoker and has been advised to quit. - Exercise: Patient is active, walking 20,000 to 30,000 steps a day. - Weight management: Patient has lost almost 70 pounds with current medications and lifestyle changes. Review of Systems - General: Reports weight loss of 4 pounds since October 2024. - Respiratory: Denies any current asthma exacerbations. - Cardiovascular: Denies chest pain or palpitations. - Musculoskeletal: Reports pain in right hip and knee, worsening over time. - Neurological: Reports headaches associated with glaucoma treatment. - ENT: Reports persistent pain in the right mastoid region. - Dermatological: Reports rash possibly due to watch or bleach exposure. Physical Exam Results - Labs: A1c of 5.6% indicating controlled blood sugar levels. - Imaging: CT scan requested for evaluation of the mastoid region. Plan The patient will continue with her current diabetes management plan, which includes Tirzepatide and Metformin, aiming to maintain an A1c below 6.5%. Her hypertension is well-managed with Lisinopril, and she will continue this regimen. For hypercholesterolemia, the patient will remain on Atorvastatin 10 mg daily. The patient is advised to continue her asthma management and follow up as needed. She will maintain her current therapy for recurrent major depression, including counseling. The patient is undergoing further evaluation for the left adrenal mass, with a focus on cortisol levels. She will continue her glaucoma treatment to manage intraocular pressure and follow up with ophthalmology as scheduled. A CT scan has been requested to assess the persistent pain in the right mastoid region, and further management will be based on the results. The patient is encouraged to continue her weight management efforts and is strongly advised to quit smoking. Preventative care measures include scheduling a repeat colon cancer screening and a mammogram. Patient was informed and verbally consented to the use of an ambient scribe for clinic note documentation during this visit. Discussion Notes During the visit, I discussed with the patient the importance of maintaining her current diabetes management plan, emphasizing the goal of keeping her A1c below 6.5%. We reviewed her hypertension and hypercholesterolemia management, confirming that her current medications are effective. I advised her to continue her asthma management and therapy for recurrent major depression. We discussed the ongoing evaluation for her left adrenal mass and the need for continued glaucoma treatment. I recommended a CT scan to investigate her persistent mastoid pain and emphasized the importance of smoking cessation. Preventative care measures, including a repeat colon cancer screening and mammogram, were also highlighted as necessary steps. Patient Instructions - Continue taking Tirzepatide and Metformin as prescribed to manage diabetes. - Take Lisinopril daily for blood pressure control. - Continue Atorvastatin for cholesterol management. - Follow asthma management plan and attend follow-up appointments as needed. - Continue counseling and therapy for depression. - Attend scheduled appointments for adrenal mass evaluation and glaucoma management. - Undergo CT scan for mastoid pain evaluation. - Quit smoking to improve overall health. - Schedule and complete colon cancer screening and mammogram. Orders: Orders AMB Hemoglobin A1c Today Z13.9 - Encounter for screening, unspecified XR knee RT 2V Today M25.561 - Pain in right knee XR hip RT min 2V Today M25.551 - Pain in right hip CT mastoid Today H92.01 - Otalgia, right ear Medications: New loratadine 10 mg PO DAILY 90 tabs 3RF H92.01 - Otalgia, right ear Refilled tirzepatide 12.5 mg (0.5 mL) subcut QWEEK 2.5 mL 2RF 30 days E11.65 - Type 2 diabetes mellitus with hyperglycemia
[2024-11-25 11:13] VITALS: BP 128/64; PULSE 100; TEMP 36.3; O2SAT 98; BMI 35.0
--- OUTSIDE RECORDS SUMMARY | 2024-11-25 12:39 | XMS_ITS | Clinical Summary ---
Author Organization [address] Address [address] [place] [id number] Phone Care Team Providers Care [employer] Name Role Phone Marely Gibbons MD Primary Care Provider [phone] Allergies No known active allergies Medications lisinopril [...] use. She voiced understanding. She was given [facility] information re: LS today and will call with any questions. She will start Mycolog. I did discuss repeating a biopsy, but she did not feel she could tolerate it. Surgical History Surgery Date Site/Laterality Comments SPINE [...] Date Smoking Tobacco: Every Day Cigarettes 1.5 6.5 Started: 2018 Smokeless Tobacco: Never Tobacco Cessation:Ready [...] on patient's age to complete this topic Insurance [facility] Care Teams [employer] Relationship Specialty Start Date End Date Marely Gibbons MD [address] [place] [address] [address] [facility] [place] [address] PCP - General 07/19/22
== END 2024-11-25 12:10 | disposition home or self-care (01) ==
LOC: HO.HMCH 11:05
PROVIDERS: PCP Internal Medicine; Visit Provider Internal Medicine
DX: E11.65 Type 2 diabetes mellitus with hyperglycemia (principal); E66.812 Obesity, class 2; E66.01 Morbid (severe) obesity due to excess calories; Z68.39 Body mass index [BMI] 39.0-39.9, adult; K21.9 Gastro-esophageal reflux disease without esophagitis; E78.00 Pure hypercholesterolemia, unspecified; I10 Essential (primary) hypertension; F33.1 Major depressive disorder, recurrent, moderate; Z72.0 Tobacco use; M25.551 Pain in right hip; M25.561 Pain in right knee; H92.01 Otalgia, right ear; Z13.9 Encounter for screening, unspecified

== ENCOUNTER → 2024-11-25 11:04 | Outpatient (BNVA) | payer OTHER, SELFPAY | PROVIDERS: PCP Internal Medicine; Visit Provider Internal Medicine | DX: E11.65 Type 2 diabetes mellitus with hyperglycemia (principal); E66.812 Obesity, class 2; E66.01 Morbid (severe) obesity due to excess calories; K21.9 Gastro-esophageal reflux disease without esophagitis; E78.00 Pure hypercholesterolemia, unspecified; I10 Essential (primary) hypertension; F33.1 Major depressive disorder, recurrent, moderate; M25.551 Pain in right hip; J45.909 Unspecified asthma, uncomplicated; F17.210 Nicotine dependence, cigarettes, uncomplicated; Z68.39 Body mass index [BMI] 39.0-39.9, adult | CPT/HCPCS: 83036; 99212 ==

== ENCOUNTER 2024-12-04 13:14 | Outpatient (AMB) | payer OTHER, SELFPAY ==
[2024-12-04 13:16] VITALS: BP 106/62; PULSE 83; O2SAT 97; BMI 35.1
--- NOTE | 2024-12-04 13:16 | A.OFFVIS_ITS ---
Vital Signs 3 12/04/24 13:16 Height 5 ft 3 in Weight 198 lb 3.129 oz BMI 35.1 BP 106/62 Blood Pressure Location Lt brachial Position Sitting Pulse 83 Pulse Source Pulse Oximeter Pulse Oximetry (%) 97 Oxygen Delivery Method Room Air Intake Visit Reasons: Left adrenal mass Intake Note: Patient present today for Left adrenal mass office visit. 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 Accompanied by: Self / Same As Patient Allergies simvastatin Allergy (Unknown, Verified 12/04/24 13:19) Unknown sitagliptin (Januvia) Allergy (Unknown, Verified 12/04/24 13:19) nausea, vomits, cramps verapamil Allergy (Unknown, Verified 12/04/24 13:19) shortness of breath pioglitazone Adverse Reaction (Intermediate, Verified 12/04/24 13:19) Abdominal Pain Medication List - Last Reconciled 12/04/24 by Pooja Chi MD albuterol sulfate 90 mcg/actuation (Ventolin HFA) 2 puffs inhalation Q6H PRN aspirin 81 mg PO DAILY atorvastatin 10 mg PO DAILY baclofen 10 mg PO TID betamethasone, augmented 0.05 % 1 appl topical BID 7 days bisacodyl (Dulcolax (bisacodyl)) 10 mg (2 x 5 mg) PO BEDTIME blood sugar diagnostic (FreeStyle Lite Strips) As directed check the blood sugar once a day blood-glucose meter (FreeStyle Lite Meter kit) check sugars once per day brimonidine 0.2% 1 drp ophthalmic (eye) BID chlorhexidine gluconate 4% (Hibiclens) 1 appl topical .QOD 2 doses cyanocobalamin (vitamin B-12) 1,000 mcg PO DAILY hydrocortisone 2.5% (Proctosol HC) 1 appl DC BID-QID PRN lactulose 20 grams (30 mL) PO BID lancets (FreeStyle Lancets) As directed check blood sugar once a day lansoprazole 30 mg PO DAILY lidocaine 5% 2 patches topical DAILY lisinopril 40 mg PO DAILY 30 days loratadine 10 mg PO DAILY metformin 500 mg PO BID methylcellulose (laxative) (Citrucel) 1,000 mg (2 x 500 mg) PO DAILY ondansetron 4 mg PO Q8H PRN sucralfate 1 g PO BID sumatriptan succinate 50 mg PO .QD PRN tirzepatide 12.5 mg (0.5 mL) subcut QWEEK 30 days tramadol 50 mg PO TID PRN 30 days HPI Comments Details: 49 year female here today for follow up of adrenal incidentaloma. Her with sister Maday . HPI Underwent MRI of the abdomen/pelvis in March 2024 which showed an incidental 1.7 cm left adrenal gland nodule. History of HTN , diagnosed in early 20s On lisinopril 40 mg daily , mostly blood pressure at 130 systolic Stroke in 1998 in her 20s . Generalised residual weakness from the stroke . No neurological deficits per patient. Has type 2 DM on metformin 500 BID and Mounjaro , a1c 5.2 % from summer 2023 and lost 50 lbs over the last 2 years or so since 2020 Reports easy bruising Reports weakness in legs when she goes up stairs No fractures Was told she has PCOS in her teens. LMP : 04/01/24 Regular monthly periods at least since 2014 , didnt have periods for 12 years before that Was told she was artie menopausal ? Was atrributed to PCOS ?? Pregnancies : 1 , had a misscarriage in 2019, TTC for many years but was unable to. Last US was 2022 pelivis right 1.5 cm ovarian cyst but no significant abnormality . She has diagnosis of Anti phospholipid syndrome. HAs hirsutism : facial hair, abdomen , back , nipples Reports milky discharge from skin boils on the nipples. Reports no increase in ring size or shoe size . Reports acne on back and chest. Reports excessive sweating. HEadaches are chronic and severe, Diagnosed with migraines on sumatriptan. Schedueled for steroid shot on May 082023, has had cortisone shots in the past in back , knees . Long time ago nothing recently. Sometimes usues hydrocortison creams not recently. Has used prednisone in the past multiple courses for asthma, pneumonia , nothing recentlyt. Was on betamethasone cream a month ago for vulvar irritation. Endorses loss of libido . Was sexually active when was alive. She also reports extensive history of skin infections. She also has hidradenitis suppurativa. Labs done 04/16/2024 showed normal renin, aldosterone not elevated, normal 17 hydroxyprogesterone, normal plasma metanephrine normetanephrine levels, acth 11, cortisol 4.9, DHEA-S 66, normal testosterone androstenedione, prolactin, LH, FSH, estradiol, dexamethasone suppression test done 04/19/2024, no dexamethasone level drawn but ACTH suppressed to less than 5, random cortisol at 1.8. CT adrenal protocol done 09/27/2024 redemonstrated the 3.7 cm right adrenal gland nodule with features consistent with benign adenoma-10 Hounsfield units precontrast, with greater than 60% washout. Interval history 11/13/2024: Salivary cortisol levels X 2 still pending 11/16/2024 24 hour urine cortisol normal at 29.5 with normal urine creatinine Well-controlled diabetes mellitus (a1c 5.6 % November 2024) and hypertension Lost 60 lbs over a year with diet , exercise and Monjaro , doing a good job No fractures Physical exam General: Facial rounding noted HEENT: normocephalic/atraumatic, has excessive facial hair Neck: supple, symmetrical, no thyromegaly , has dorsocervical or supraclavicular fat pads Cardiac: normal heart sounds Pulm: normal breath sounds B/L, no added breath sounds Abd: No purple striae noted, regular thin striae noted. Extremities: no edema, no signs of myxedema, does have some degree of proximal muscle weakness Skin: Multiple scarred over acne lesions noted. 2 Laboratory Tests 11/09/20 12/30/21 11/03/22 15:46 14:04 15:06 Potassium 4.4 4.4 4.3 Creatinine 0.69 Hgb A1c (Clinic) TSH 1.14 Free T4 0.93 02/09/24 14:12 Potassium Creatinine Hgb A1c (Clinic) 5.2 TSH Free T4 Laboratory Tests 04/16/24 04/19/24 07/30/24 08:25 07:46 10:04 Sodium 138 Potassium 3.6 Renin 3.87 Aldosterone 2 TSH Estradiol Ultra LCMSMS 62 FSH 7.1 Luteinizing Hormone 4.8 Prolactin 8.2 Total Testosterone 18 Fr Testosterone Dialys 2.4 Androstenedione 65 DHEA Sulfate 66 Random Cortisol 4.9 1.8 ACTH 11 <5 L 17-Hydroxyprogesterone 28 Plasma Free Metaneph <25 Plasma Free Normeta 42 Plas Total Metaneph 42 Dexamethasone <20 <20 07/30/24 10:06 Sodium Potassium Renin Aldosterone TSH 0.64 Estradiol Ultra LCMSMS FSH Luteinizing Hormone Prolactin Total Testosterone Fr Testosterone Dialys Androstenedione DHEA Sulfate Random Cortisol ACTH 17-Hydroxyprogesterone Plasma Free Metaneph Plasma Free Normeta Plas Total Metaneph Dexamethasone Laboratory Tests 11/16/24 09:45 Urine Total Volume 3032 Ur 24 Hour Volume 3032 Ur Creatinine mg/dL 34.35 Ur Creatinine 24 Hour 1.14 Ur Free Cortisol [address] adrenal 09/27/24 LINICAL HISTORY: E27.8 - Other specified disorders of adrenal gland Exam: CT Abdomen with and without IV Contrast, attention adrenal glands. Comparison: None Findings: The liver density is homogeneous No biliary abnormalities The spleen is normal in size No pancreatic ductal dilatation The right adrenal gland is normal in size. The right adrenal gland is enlarged measuring 3.7 x 1.8 cm in the axial plane precontrast density of the left adrenal gland is, -10 HU. Postcontrast portal venous phase density of the left adrenal gland is 33 HU. Post-contrast 10 minutes delay left adrenal density is 6.0 HU. No hydronephrosis. No renal calculi. Normal bowel caliber in the upper abdomen No free fluid/free air No vascular abnormalities in the upper abdomen No suspicious skeletal lesions. Impression: The adrenal gland densities based on absolute washout calculation is highly suggestive of benign adrenal adenoma (greater than 60%). FYI: It should be noted that adrenal washout analysis has limited use when assessing incidental adrenal nodules less than 4 cm in size and greater than 10 Hounsfield units without known malignancy. ACR adrenal white paper recommendation is 1 year follow-up CT if not already done. This document has been electronically signed by: Fabian Avila MD on 09/27/2024 15:40:11 ? Imaging MRI from March 2023 from [facility] Medical History High serum cortisol Colon cancer screening Hirsutism Morbid obesity Burning sensation of vulva Vulvar pain Hidradenitis suppurativa Acute bronchitis BRCA gene mutation negative Abdominal tenderness Acute vaginitis Smoking Fibromyalgia Pelvic pain in female At high risk for breast cancer GERD (gastroesophageal reflux disease) Migraine Asthma Vitamin B12 deficiency Vitamin D deficiency Anti-phospholipid syndrome PCOS (polycystic ovarian syndrome) Hypercholesterolemia Hypertension Type 2 diabetes mellitus with hyperglycemia Surgical History H/O oral surgery H/O colonoscopy H/O endoscopy Family History Mother Cervical cancer Maternal Aunt Breast cancer Cervical cancer Maternal Aunt Breast cancer Cervical cancer Maternal Aunt Cervical cancer Maternal Aunt Cervical cancer Social History Housing: Apartment Housing Other:: 2019 Are you a primary medicare insurance specialist to a significant other at home: No Do you presently have visiting nurse or other home services: No Alcohol intake: never Patient Tobacco Use Status: Current everyday Tobacco user Tobacco use type: Cigarette Cigarette Packs Per Day: 1.5 Cigarettes Per Day: 30.0 e-Cigarette/Vaping Use: Never Used Second Hand Smoke Exposure: No service: No Current occupational status: employed 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 CT adrenal protocol done 09/27/2024 redemonstrated the 3.7 cm right adrenal gland nodule with features consistent with benign adenoma-10 Hounsfield units precontrast, with greater than 60% washout. We will plan to repeat imaging in 1 year in November 2025 prior to her follow up.. Labs done 04/16/2024 showed normal renin, aldosterone not elevated, normal , normal plasma metanephrine normetanephrine levels, acth 11, cortisol 4.9, DHEA-S 66, , dexamethasone suppression test done 04/19/2024, no dexamethasone level drawn but ACTH suppressed to less than 5, random cortisol at 1.8. This is just at the borderline of normal. She does have type 2 diabetes mellitus, though well-controlled with recent weight loss on Mounjaro. Hypertension is also well-controlled. No history of fractures recently. However neck exam she does have proximal muscle weakness, she does have facial rounding, reports easy bruising, has history of skin infections, though she has used multiple courses of different modes of steroids in the past for back pain, knee pain, skin infections/lesions. She has also used multiple courses of prednisone in the past for asthma exacerbations and has had joint injections with steroids in the past. Some of her features could be excess exposure to cortisol from exogenous steroids over her lifetime. However no recent steroid use in the past month. 11/13/2024: Salivary cortisol levels X 2 still pending 11/16/2024 24 hour urine cortisol normal at 29.5 with normal urine creatinine Well-controlled diabetes mellitus (a1c 5.6 % November 2024) and hypertension At this point we will continue to monitor for mild autonomous cortisol excess. ? Plan: -ordered 24 hour urine cortisol level to be done in November 2025 prior to follow up in December 2025 -ordered salivary cortisol X 2 to be done in November 2025 prior to follow up in December 2025 -ordered CT adrenal to be repeated in November 2025 -follow up in 1 year (2) Hirsutism: Code(s): L68.0 - Hirsutism Category: Medical Plan: She is also noted to have significant hirsutism, has had history of infertility, with 1 miscarriage in the past, and she reports she did not have a period for 12 years before the restarted in 2014. Now she has regular periods signs of possible hyperandrogenism, Ultrasound from 2022 of her ovaries did show an enlarged ovaries overall in volume of 11 cc. Right ovarian 1.5 cm cyst also noted but no other obvious abnormality. Currently she is having regular periods. Labs from 04/16/2025 showed normal estradiol, FSH, LH, normal testosterone, androstenedione, prolactin levels. These are reassuring. Maybe she just has a idiopathic hirsutism. Plan See above Orders: Orders 2 Creatinine, 24 Hr Group 11/03/25 E27.8 - Other specified disorders of adrenal gland Saliva Cortisol 11/04/25 E27.8 - Other specified disorders of adrenal gland CT adrenal wo/w IV con 11/03/25 E27.8 - Other specified disorders of adrenal gland, R79.89 - Other specified abnormal findings of blood chemistry Cortisol, Free 24Hr Urine 11/03/25 E27.8 - Other specified disorders of adrenal gland Saliva Cortisol 11/03/25 E27.8 - Other specified disorders of adrenal gland Patient Instructions: Do 2 salivary cortisol levels at midnight in November 2025 Salivary cortisol collection instructions Specimen requirement Collect 1 mL or more of Saliva/fully saturated swab. Do not eat for 60 minutes prior to collecting specimen. Do not consume alcohol 12 hours prior to collecting specimen. Do not brush teeth immediately before collecting specimen as gums may bleed in contaminated specimen causing a falsely elevated result. Rinse mouth thoroughly with water 10 minutes before collecting specimen. Recommend collection time is generally between 11 PM and 1 AM. Be sure to clearly label each tube collected with correct date and time. Specimen visibly contaminated with blood, cellular debris, food particles or mucus must be recollected. Specimen collection 1. ?Label the exterior tube after salivette collection device using waterproof pen with your [patient] first and last name as well as date and time collected. 2. ?Remove the stopper of the container to expose the swab. ?Do not remove the insert from the tube. ?This is necessary for processing the specimen. 3. ?Place swab directly into the mouth by tipping the tube so that the swab falls into the mouth. The swab should be placed under the tongue or allow to move freely across the tongue. ?Do not place a swab between cheek and gum. ?Gently chewing the swab is acceptable. 4. ?Keep the swab in your mouth for 2 to 3 minutes. ?Be sure the swab is completely saturated with saliva; this will ensure that enough volume is collected. 5. ?Return the swab back into the insert. ?Do not touch the swab with the fingers. ?Do not remove the insert from the tube. 6. ?Replace the stopper, ensuring that the cap is tight [the cap will click when inserted properly] 7. ?Return salivette collection device to the lab. Preparation instruction If multiple specimens are submitted, ensure that all tubes are clearly labeled with correct time and date. Submit specimen in salivette collection device only. ?Other containers are not acceptable. Do a 24 hr urine collection also in November 2025 24 hr urine collection instructions You have been asked to collect your urine for 24 hours to assess for cortisol excretion. You must choose a 24 hour period of time when you will be home. The morning of the first day, DISCARD the FIRST morning void and then note the time. You will collect every single void from then on for 24 hours. For example, if you wake up at 6am and urinate, flush down that void. You will then collect every drop of urine all day and all night through 6am the following day. You will urinate one last time at 6am for the collection. The jug of urine must be kept in the refrigerator until you bring it to the lab. Follow up in 1 year in December 2025 to discuss results Coding Level of Care Code Est Pt Level 3 (38212) Diagnoses Left adrenal mass E27.8 Hirsutism L68.0
--- OUTSIDE RECORDS SUMMARY | 2024-12-04 13:50 | XMS_ITS | Clinical Summary ---
Author Organization [address] Address [address] [place] [id number] Phone Care Team Providers Care Salon Sales Consultant Name Role Phone Marely Gibbons MD Primary Care Provider [phone] Allergies No known active allergies Medications lisinopril [...] patient's age to complete this topic Insurance [facility] Care Teams Salon Sales Consultant Relationship Specialty Start Date End Date Marely Gibbons MD [address] [place] [address] [address] [facility] [place] [address] PCP - General 07/19/22
--- OUTSIDE RECORDS SUMMARY | 2024-12-04 13:50 | XMS_ITS | Patient Health Record ---
Author Organization [facility] Address [address] [place] [address] Care Team Providers Care Wardrobe Supervisor Name Role Phone Po Marely HAY Primary Care Provider Chato Hernandez Jr Reason For Referral No Information Medications Medication SIG (Take, Route, Frequency, Duration) Notes Start Date End Date Status Dicyclomine HCl 10 TAKE 1 CAPSULE BY [facility] THREE TIMES DAILY for 30 Active Aspir-81 81 MG 1 tablet Orally Once a day Active Nabumetone 500 MG 1 tablet Orally Twic e a day Active Omeprazole 20 MG 1 capsule Orally Onc e a day Active Dicyclomine HCl 10 MG 1 capsule Orally 3 times daily Active Gabapentin 600 MG 1 tablet Orally once a day Active Dicyclomine HCl 20 MG 1 tablet Orally 2- 4 times a day 02/05/2015 Active Ondansetron HCl 8 MG 1 tablet Orally Once a day Active Fioricet 50-300-40 MG 1 capsule as neede d Orally every 4 hrs Active Vitamin D 400 UNIT Orally A ctive Jolivette 0.35 MG 1 tablet Orally Once a day Active metFORMIN HCl 500 MG 1 tablet with meals Orally Twice a day Active Lisinopril 40 MG 1 tablet Orally Once a day Active traMADol HCl 50 MG 1 tablet as needed O rally every 6 hrs Active amLODIPine Besylate 10 MG 1 tablet Orally Once a day Active Plan Of Treatment No Information Insurance Providers Payer Name Payer Address Payer Phone Subscriber Number Group Number Insured Name Patient Relationship to Insured Coverage Start Date Coverage End Date [employer] [address] [place] [address] [id number] THOMAS MAN Self - patient is the insured MEDICAID OF [facility] [address] [place] [address] [id number] THOMAS [employer] Self - patient is the insured Medical (General) History Medical History History ICD Code diabetes mellitus asthma hypertension Denies NH,CVA,renal disease
== END 2024-12-04 13:35 | disposition home or self-care (01) ==
LOC: HO.ENCR 13:14
PROVIDERS: PCP Internal Medicine; Visit Provider Student in an Organized Health Care Education/Training Program
DX: E27.8 Other specified disorders of adrenal gland (principal); L68.0 Hirsutism
CPT/HCPCS: 99213

== ENCOUNTER → 2024-12-04 13:14 | Outpatient (BNVA) | payer OTHER, SELFPAY | PROVIDERS: PCP Internal Medicine; Visit Provider Student in an Organized Health Care Education/Training Program | DX: L68.0 Hirsutism (principal); E27.8 Other specified disorders of adrenal gland | CPT/HCPCS: 99212 ==

== ENCOUNTER 2025-02-18 11:44 | Outpatient (AMB) | payer OTHER, SELFPAY ==
[2025-02-18 11:49] VITALS: BP 124/72; PULSE 84; O2SAT 100; BMI 34.4
--- NOTE | 2025-02-18 11:49 | A.OFFVIS_ITS ---
Vital Signs 02/18/25 11:49 Height 5 ft 3 in Weight 194 lb BMI 34.4 BP 124/72 Blood Pressure Location Rt brachial Position Sitting Pulse 84 Pulse Source Pulse Oximeter Pulse Oximetry (%) 100 Oxygen Delivery Method Room Air Intake Visit Reasons: discuss colo Intake Note: ESTABLISHED PATIENT for Constipation mgmt. Chief Complaint; Pt denies any new GI sx or changes since last visit. Pt is hoping we can resent citrucel tabs to the pharmacy as she has changed pharmacies in hopes that it will actually be in stock. Pt states that it is covered by her insurance but they never had any on hand, she has been purchasing online. 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 Operator Required: No Accompanied by: Self / Same As Patient Allergies simvastatin Allergy (Unknown, Verified 02/18/25 11:50) Unknown sitagliptin (Januvia) Allergy (Unknown, Verified 02/18/25 11:50) nausea, vomits, cramps verapamil Allergy (Unknown, Verified 02/18/25 11:50) shortness of breath pioglitazone Adverse Reaction (Intermediate, Verified 02/18/25 11:50) Abdominal Pain HPI HPI discuss colo: Details: LAST VISIT GERD (gastroesophageal reflux disease) IBS (irritable bowel syndrome) Postprandial abdominal bloating Gastritis Duodenitis Esophagitis Schatzki's ring Constipation Plan Patient feels like lansoprazole it is helping, however she continues to have acid reflux and epigastric pain postprandially. Patient was instructed to eat smaller meals and more often she is on Mounjaro, that is slows down the gastric motility somewhat. Patient has can do very well if they do smaller portions and eat more often. Also moving her bowels will help her with dose symptoms of feeling full very quickly after meals. Take Dulcolax tablets daily to help her feel like she empties better. Proctosol for hemorrhoids. Increase fluid intake and activity to promote better bowel motility. Patient will follow-up in the office in 3-4 months, sooner on as needed basis. We will need to discuss her going for neither colonoscopy. She is agreeable to this plan and verbalizes understanding of instructions. She was given the opportunity to ask questions and all questions answered. ? Thank you for allowing me to participate in her care New hydrocortisone 2.5% (Proctosol HC) 1 appl MO BID-QID PRN 30 grams 2RF hemorrhoids K64.9 bisacodyl (Dulcolax (bisacodyl)) 10 mg (2 x 5 mg) PO BEDTIME 180 tabs 4RF Refilled lansoprazole 30 mg PO DAILY 30 caps 3RF K21.9 Discontinued nystatin Swish and swallow Discontinued Reason: Patient Refused 5 mL PO TID 7 days 105 mL 0RF B37.0 metronidazole Take with food, Avoid alcohol and vinegar products Discontinued Reason: Doctor's Order 500 mg PO BID 7 days 14 tabs 0RF sennosides Discontinued Reason: Doctor's Order 17.2 mg (2 x 8.6 mg) PO BEDTIME 60 tabs 3RF constipation K59.00 TODAY'S VISIT Patient is here today for follow-up and to discuss going for colonoscopy. Patient had suboptimal prep on her last colonoscopy and recommendation was for early years screening. Patient continues to have trouble moving her bowels. PCP at it lactulose, however patient reports that she forgets to take it sometimes. Patient reports that sometimes bowel movements for 4-5 days. Patient reports epigastric pain. She used to take Citrucel, however no longer is able to get it as her pharmacy does not have Citrucel. Tried different fiber supplements and did not do well with them. Patient denies any issues with anesthesia in the past. No history of sleep apnea. Patient is on low-dose aspirin. Patient reports occasional epigastric pain, however states that much better with lansoprazole. Patient is taking sucralfate. Patient is taking tirzepatide. Patient reports that she last almost 30 lb since April of last year. [facility] Medical History High serum cortisol Colon cancer screening Hirsutism Morbid obesity Burning sensation of vulva Vulvar pain Hidradenitis suppurativa Acute bronchitis BRCA gene mutation negative Abdominal tenderness Acute vaginitis Smoking Fibromyalgia Pelvic pain in female At high risk for breast cancer GERD (gastroesophageal reflux disease) Migraine Asthma Vitamin B12 deficiency Vitamin D deficiency Anti-phospholipid syndrome PCOS (polycystic ovarian syndrome) Hypercholesterolemia Hypertension Type 2 diabetes mellitus with hyperglycemia Surgical History H/O oral surgery H/O colonoscopy H/O endoscopy Family History Mother Cervical cancer Maternal Aunt Breast cancer Cervical cancer Maternal Aunt Breast cancer Cervical cancer Maternal Aunt Cervical cancer Maternal Aunt Cervical cancer Social History Housing: Apartment Housing Other:: 2019 Are you a primary resident care aide to a significant other at home: No Do you presently have visiting nurse or other home services: No Alcohol intake: never Patient Tobacco Use Status: Current everyday Tobacco user Tobacco use type: Cigarette Cigarette Packs Per Day: 1.5 Cigarettes Per Day: 30.0 e-Cigarette/Vaping Use: Never Used Second Hand Smoke Exposure: No service: No Current occupational status: employed 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 Cognitive needs: No Hearing needs: No Vision needs: Yes (Glasses) Review of Systems Const Denies weight gain and Denies weight loss ENT Reports no additional complaints, Denies dysphagia and Denies odynophagia Card Reports no additional complaints Resp Reports no additional complaints GI Reports abdominal pain, Denies belching, Denies melena, Reports bloating, Denies change in bowel habits, Reports constipation, Denies dysphagia, Denies excessive flatus, Denies dyspepsia, Reports heartburn (Occasional), Denies diarrhea, Denies loose stools, Reports nausea, Denies odynophagia and Denies vomiting Reports no additional complaints Musc Reports no additional complaints Neuro Reports no additional complaints Psych Reports no additional complaints Endo Reports no additional complaints Physical Exam Vital Signs: Last Vital Signs Pulse 84 02/18/25 11:49 BP 124/72 02/18/25 11:49 Pulse Ox 100 02/18/25 11:49 Oxygen Delivery Method Room Air 02/18/25 11:49 BMI result Body Mass Index 34.4 Const General: healthy appearing and no acute distress Nutritional Appearance: obese Orientation/consciousness: patient oriented x3 Resp Effort & Inspection: normal respiratory effort, able to speak in complete sentences, no tracheal deviation and symmetric chest movement Auscultation: clear to auscultation bilaterally Cardio Rate: regular rate Heart sounds: S1 normal heart sound present and S2 normal heart sound present GI Inspection: Yes normal to inspection, No distended and Yes obesity Palpation (GI): Soft to palpation, not firm, nontender and No hepatosplenomegaly present Auscultation: normal bowel sounds General: Yes no CVA tenderness Back/Spine/Pelvis Back: no CVA tenderness Skin General skin exam: elasticity normal, turgor normal and dry skin Neuro General: patient oriented x3 Psych Appearance: grossly normal Mental Status: mental status grossly normal Assessment & Plan Assessment & Plan (1) GERD (gastroesophageal reflux disease): Code(s): K21.9 - Gastro-esophageal reflux disease without esophagitis Category: Medical Qualifiers: Esophagitis presence: esophagitis presence not specified Qualified Code(s): K21.9 - Gastro-esophageal reflux disease without esophagitis (2) Colon cancer screening: Code(s): Z12.11 - Encounter for screening for malignant neoplasm of colon Category: Medical (3) Constipation: Code(s): K59.00 - Constipation, unspecified Category: Medical Qualifiers: Constipation type: slow transit constipation Qualified Code(s): K59.01 - Slow transit constipation (4) RUQ abdominal pain: Code(s): R10.11 - Right upper quadrant pain Category: Medical (5) Postprandial epigastric pain: Code(s): R10.13 - Epigastric pain Plan Patient will continue take lansoprazole daily. Avoid dietary triggers and might and function. Patient will be sent for upper endoscopy to rule out gastritis, esophagitis, duodenitis, Dillon's, H pylori. Patient will be sent for colonoscopy. Suboptimal prep last colonoscopy. Patient will start taking Linzess daily. May take Dulcolax in the evening if no bowel movement. For prep patient will to split MiraLax prep and Dulcolax and 294 she will do Mag citrate in addition to help her empty bowels better. What to expect before during and after procedure discussed with patient. Stressed the importance of good bowel prep and clear liquid diet day before procedure. Patient will be seen after the procedure, sooner on as needed basis. Patient is agreeable to this plan and verbalizes understanding of instructions. She was given the opportunity to ask questions and all questions answered. Thank you for allowing me to participate in her care Medications: New linaclotide (Linzess) 145 mcg PO DAILY 30 caps 4RF K59.04 - Chronic idiopathic constipation magnesium citrate (Citrate of Magnesia oral) 150 mL PO DAILY PRN 296 mL 5RF constipation K59.00 - Constipation, unspecified Refilled methylcellulose (laxative) (Citrucel) take it with full glass of water 1,000 mg (2 x 500 mg) PO DAILY 180 tabs 2RF K59.00 - Constipation, unspecified bisacodyl (Dulcolax (bisacodyl)) 10 mg (2 x 5 mg) PO BEDTIME 180 tabs 4RF ondansetron 4 mg PO Q8H PRN 10 tabs 4RF for nausea/vomiting R11.0 - Nausea Coding Level of Care Code Est Pt Level 4 (22593) Complex EM visit Add On G2211 Diagnoses Gastroesophageal reflux disease, unspecified whether esophagitis present K21.9 Esophagitis presence: esophagitis presence not specified Colon cancer screening Z12.11 Slow transit constipation K59.01 Constipation type: slow transit constipation RUQ abdominal pain R10.11 Postprandial epigastric pain R10.13 Time Spent (min) 35 Comment 25 minutes spent with patient and additional 10 minutes spent reviewing her records
--- OUTSIDE RECORDS SUMMARY | 2025-02-18 15:57 | XMS_ITS | Patient Health Record ---
Author Organization [facility] Address [address] [place] [address] Care Team Providers Care Body Joiner Name Role Phone Po Marely HAY Primary Care Provider Chato Hernandez Jr Reason For Referral No Information Medications Medication SIG (Take, Route, Frequency, Duration) Notes Start Date End Date Status Dicyclomine HCl 10 TAKE [address] [facility] THREE TIMES DAILY for 30 Active Aspir-81 [...] Date [employer] [address] [place] [address] [id number] THOMAS MAN Self - patient is the insured MEDICAID OF [facility] [address] [place] [address] [id number] THOMAS MAN Self - patient is the insured Medical (General) History Medical History History ICD Code diabetes mellitus asthma hypertension Denies CT,CVA,renal disease
--- OUTSIDE RECORDS SUMMARY | 2025-02-18 15:57 | XMS_ITS | Clinical Summary ---
Author Organization [address] Address [address] [place] [id number] Phone Care Team Providers Care Tread Tuber Machine Operator Name Role Phone Marely Gibbons MD Primary Care Provider Allergies No known active allergies Medications lisinopril [...] use. She voiced understanding. She was given [facility] information re: LS today and will [...] Date Smoking Tobacco: Every Day Cigarettes 1.5 6.7 Started: 2018 Smokeless Tobacco: Never Tobacco Cessation:Ready [...] Sexual Orientation Not on file Obstetrics History * This document contains information received from the source organization and may not represent a complete record from that organization. Para Term AB IAB SAB Ectopic Multiple Livin g Live Births 1 0 0 0 0 0 0 0 Date Outcome GA Total Labor Labor/2nd/3rd Weight Sex Type Anes PTL Arlin A1 A5 Name Clin Last Filed Vital Signs Vital Sign Reading [...] 5 Years) and At-Risk Patients (6 to 49 Years) (1 of 2 - PCV) 1995 Cervical Cancer Screening: P ap Smear 1997 Cholesterol Screening (Lipid Panel) 06/30/2023 Colorectal Cancer Screening: Colonoscopy 06/30/2023 HIV Screening 06/30/2023 Hepatitis C Screening 06/30/2023 Social Influencers of Health Screening 06/30/2023 Depression Screening 06/05/2024 COVID-19 Vaccine (2023-2 5 season) 2025 Influenza Vaccine (#1) 2025 HIB Vaccines Aged Out No longer [...] patient's age to complete this topic Insurance [facility] Care Teams Tread Tuber Machine Operator Relationship Specialty Start Date End Date Marely Gibbons MD [address] [place] [address] [address] [facility] [place] [address] PCP - General 07/19/22
== END 2025-02-18 13:46 | disposition home or self-care (01) ==
LOC: HO.HGI 11:45
PROVIDERS: PCP Internal Medicine; Visit Provider Nurse Practitioner Family
DX: K21.9 Gastro-esophageal reflux disease without esophagitis (principal); K59.01 Slow transit constipation; R10.11 Right upper quadrant pain; R10.13 Epigastric pain
CPT/HCPCS: 99214

== ENCOUNTER → 2025-02-18 11:44 | Outpatient (BNVA) | payer OTHER, SELFPAY | PROVIDERS: PCP Internal Medicine; Visit Provider Nurse Practitioner Family | DX: Z01.818 Encounter for other preprocedural examination (principal); K59.01 Slow transit constipation; R10.11 Right upper quadrant pain; R10.13 Epigastric pain; K21.9 Gastro-esophageal reflux disease without esophagitis | CPT/HCPCS: 99212 ==

== ENCOUNTER 2025-02-20 10:43 | Outpatient (REF) | payer OTHER, SELFPAY ==
--- OUTSIDE RECORDS SUMMARY | 2025-02-20 12:52 | XMS_ITS | Clinical Summary ---
Author Organization [address] Address [address] [place] [id number] Phone Care Team Providers Care Ironworker Foreman Name Role Phone Marely Gibbons MD Primary Care Provider [phone] Allergies No known active allergies Medications lisinopril [...] use. She voiced understanding. She was given [facility] information re: LS today and will [...] Screening 06/30/2023 Depression Screening 06/05/2024 COVID-19 Vaccine ( - 2023-2 5 season) 2025 Influenza Vaccine (#1) 2025 RSV Immunization Adult Patie nts (1 - 1-dose 75+ series) 2051 HIB Vaccines Aged Out No longer eligi [...] patient's age to complete this topic Insurance [facility] Care Teams Ironworker Foreman Relationship Specialty Start Date End Date Marely Gibbons MD [address] [place] [address] [address] [facility] [place] [id number] PCP - General 07/19/22
--- OUTSIDE RECORDS SUMMARY | 2025-02-20 12:52 | XMS_ITS | Patient Health Record ---
Author Organization [facility] Address [address] [place] [address] Care Team Providers Care Network Security Officer Name Role Phone Po Marely HAY Primary Care Provider Chaot Hernandez Jr [phone] Reason For Referral No Information Medications Medication SIG (Take, Route, Frequency, Duration) Notes Start Date End Date Status Dicyclomine HCl 10 TAKE 1 CAPSULE BY [facility] THREE TIMES DAILY for 30 Active [...] Date [employer] [address] [place] [address] [id number] THOMAS MAN Self - patient is the insured MEDICAID OF [facility] [address] [place] [address] [id number] THOMAS MAN Self - patient is the insured Medical (General) History Medical History History ICD Code diabetes mellitus asthma hypertension Denies [place],CVA,renal disease
== END 2025-02-20 10:44 | disposition home or self-care (01) ==
LOC: HO.MAMMO 10:43
PROVIDERS: PCP Internal Medicine; Visit Provider Internal Medicine
DX: Z12.31 Encounter for screening mammogram for malignant neoplasm of breast (principal)
CPT/HCPCS: 77063; 77067

== ENCOUNTER → 2025-02-20 11:00 | Outpatient (BNV) | payer OTHER, SELFPAY | PROVIDERS: PCP Internal Medicine; Visit Provider Internal Medicine | DX: Z12.31 Encounter for screening mammogram for malignant neoplasm of breast (principal) | CPT/HCPCS: 77063; 77067 ==

== ENCOUNTER 2025-02-27 08:13 | Day surgery (SDC) | payer OTHER, SELFPAY ==
--- NOTE | 2025-02-25 11:31 | P.CONAN_ITS ---
Documented by User: Chela Mcdaniel NP 02/25/25 11:34 HPI - Anesthesia Eval Consult details Narrative: 49 yr old female for Upper Endoscopy and Colonoscopy Type 2 DM: well controlled with A1C 5.6% +smoker/asthma Saw PCP 11/2024, CT scan was ordered to assess pain in right mastoid region- does not appear this was completed Anesthesia Pre-Procedure Meds Is the patient on any of the following meds?: GLP1/DPP4 PMFSH Active Problems Active Problems: All Active Problems Pain of right mastoid (Acute) Right knee pain (Acute) Hip pain, right (Acute) High serum cortisol (Acute) Abnormal ultrasound of endometrium (Acute) Cough (Acute) Colon cancer screening (Acute) Encounter for well woman exam with routine gynecological exam (Acute) Abnormal uterine bleeding (AUB) (Acute) Endometrial polyp (Acute) Lesion of endometrium (Acute) Constipation (Acute) Hirsutism (Acute) Left adrenal mass (Acute) Adnexal cyst (Acute) Dysuria (Acute) Morbid obesity (Acute) Mastoiditis of right side (Acute) Flank pain (Acute) Low back pain (Acute) RUQ abdominal pain (Acute) Plantar fasciitis (Acute) Oral candidiasis (Acute) COVID-19 virus infection (Acute) Recurrent major depression (Acute) Vaginal pain (Acute) Myalgia (Acute) Folliculitis (Acute) Tobacco abuse (Acute) Abscess of thigh (Acute) Migraine (Acute) Burning sensation of vulva (Acute) GERD (gastroesophageal reflux disease) (Acute) Asthma (Acute) Hypercholesterolemia (Acute) Hypertension (Acute) Obesity (Acute) Type 2 diabetes mellitus with hyperglycemia (Acute) Past Medical History Medical History High serum cortisol Colon cancer screening Hirsutism Morbid obesity Burning sensation of vulva Vulvar pain Hidradenitis suppurativa Acute bronchitis BRCA gene mutation negative Abdominal tenderness Acute vaginitis Smoking Fibromyalgia Pelvic pain in female At high risk for breast cancer GERD (gastroesophageal reflux disease) Migraine Asthma Vitamin B12 deficiency Vitamin D deficiency Anti-phospholipid syndrome PCOS (polycystic ovarian syndrome) Hypercholesterolemia Hypertension Type 2 diabetes mellitus with hyperglycemia Family History Family History Mother Cervical cancer Maternal Aunt Breast cancer Cervical cancer Maternal Aunt Breast cancer Cervical cancer Maternal Aunt Cervical cancer Maternal Aunt Cervical cancer Family history of problems with anesthesia: No Surgical History Surgical History H/O oral surgery H/O colonoscopy H/O endoscopy History of Problems with Anesthesia: No Social History Social History Housing: Apartment Housing Other:: 2019 Are you a primary care consultant to a significant other at home: No Do you presently have visiting nurse or other home services: No Alcohol intake: never Patient Tobacco Use Status: Current everyday Tobacco user Tobacco use type: Cigarette Cigarette Packs Per Day: 1.5 Cigarettes Per Day: 30.0 e-Cigarette/Vaping Use: Never Used Second Hand Smoke Exposure: No Use of substances other than those prescribed or required for medical reasons: No Advance Directives: No Advance Directives Information Provided: Yes service: No Current occupational status: employed 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 Cognitive needs: No Hearing needs: No Vision needs: Yes (Glasses) Meds Allergies Allergy/AdvReac Type Severity Reaction Status Date / Time simvastatin Allergy Unknown Unknown Verified 02/18/25 11:50 sitagliptin (Januvia) Allergy Unknown nausea, Verified 02/18/25 11:50 vomits, cramps verapamil Allergy Unknown shortness Verified 02/18/25 11:50 of breath pioglitazone AdvReac Intermediate Abdominal Verified 02/18/25 11:50 Pain Home Medications ?Medication ?Instructions ?Recorded ?Confirmed ?Last Taken ?Type aspirin 81 mg tablet,delayed 81 mg PO DAILY 04/09/24 0 12/04/24 Unknown History release brimonidine 0.2 % eye drops 1 drp ophthalmic (eye) BID 11/25/24 12/04/24 Unknown History Assessment and Plan Final Anesthetic Review Family History of Problems with Anesthesia: No History of Problems with Anesthesia: No Documented by User: Stephanie Buenrostro MD 02/27/25 10:17 [facility] Past Medical History Medical History High serum cortisol Colon cancer screening Hirsutism Morbid obesity Burning sensation of vulva Vulvar pain Hidradenitis suppurativa Acute bronchitis BRCA gene mutation negative Abdominal tenderness Acute vaginitis Smoking Fibromyalgia Pelvic pain in female At high risk for breast cancer GERD (gastroesophageal reflux disease) Migraine Asthma Vitamin B12 deficiency Vitamin D deficiency Anti-phospholipid syndrome PCOS (polycystic ovarian syndrome) Hypercholesterolemia Hypertension Type 2 diabetes mellitus with hyperglycemia Family History Family History Mother Cervical cancer Maternal Aunt Breast cancer Cervical cancer Maternal Aunt Breast cancer Cervical cancer Maternal Aunt Cervical cancer Maternal Aunt Cervical cancer Surgical History Surgical History H/O oral surgery H/O colonoscopy H/O endoscopy Social History Social History Housing: Apartment Housing Other:: 2019 Are you a primary care consultant to a significant other at home: No Do you presently have visiting nurse or other home services: No Alcohol intake: never Patient Tobacco Use Status: Current everyday Tobacco user Tobacco use type: Cigarette Cigarette Packs Per Day: 1.5 Cigarettes Per Day: 30.0 e-Cigarette/Vaping Use: Never Used Second Hand Smoke Exposure: No Use of substances other than those prescribed or required for medical reasons: No Advance Directives: No Advance Directives Information Provided: Yes service: No Current occupational status: employed 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 Cognitive needs: No Hearing needs: No Vision needs: Yes (Glasses) Meds Allergies Allergy/AdvReac Type Severity Reaction Status Date / Time simvastatin Allergy Unknown Unknown Verified 02/18/25 11:50 sitagliptin (Januvia) Allergy Unknown nausea, Verified 02/18/25 11:50 vomits, cramps verapamil Allergy Unknown shortness Verified 02/18/25 11:50 of breath pioglitazone AdvReac Intermediate Abdominal Verified 02/18/25 11:50 Pain Home Medications ?Medication ?Instructions ?Recorded ?Confirmed ?Last Taken ?Type aspirin 81 mg tablet,delayed 81 mg PO DAILY 04/09/24 0 12/04/24 Unknown History release brimonidine 0.2 % eye drops 1 drp ophthalmic (eye) BID 11/25/24 12/04/24 Unknown History Exam Airway Mallampati Class: II TM Dist: >3cm Neck ROM: Full Heart: rrr Lungs: cta Assessment and Plan Assessment Anesthesia Assessment: Anesthesia Plan Discussed and Chart Reviewed Final Anesthetic Review NPO: Yes ASA Class: III Final Preanesthetic Review: No Changes in Pt Med Stat, Meds/Allgs Chart Reviewed, Consent Obtained/Reviewed and Anes Risks/Benef Reviewed Patient Risk: Intermediate Procedure Risk: Low Anesthetic Plan Anesthetic Plan: MAC: and Agree w/ Assess. and Plan Disposition: Standard PACU
[2025-02-25 12:59] VITALS: BMI 34.4
[2025-02-27 08:35] VITALS: BMI 34.4
[2025-02-27 08:35] LABS: UPreg QC Valid YES
[2025-02-27 08:50] LABS: Glucose, Whole Blood 87 mg/dL (60-115)
--- NOTE | 2025-02-27 08:50 | MHC.SHP ---
Pre-Procedural Eval Section A - 24 Hr Update-Section A only Date of Service: 02/27/25 The patient is an INPATIENT: No The patient has been examined within 24 hours of the surgical procedure. The History & Physical has been completed within 30 days and I have reviewed it.: Yes Section B - Complete if H&P > 30 days Chief Complaint: Epigastric pain,gerd, screening Allergies: Allergies Allergy/AdvReac Type Severity Reaction Status Date / Time simvastatin Allergy Unknown Unknown Verified 02/18/25 11:50 sitagliptin (Januvia) Allergy Unknown nausea, Verified 02/18/25 11:50 vomits, cramps verapamil Allergy Unknown shortness Verified 02/18/25 11:50 of breath pioglitazone AdvReac Intermediate Abdominal Verified 02/18/25 11:50 Pain Plan Diagnosis/Plan: Unchanged I have reviewed the history and physical and performed a pertinent physical examination on my patient. No changes have occurred unless specified. Time Spent With Patient Time: Total time managing care of this patient today ____ minutes.
[2025-02-27 08:59] VITALS: BP 145/78; PULSE 86; RESP 16; TEMP 36.8; O2SAT 99
[2025-02-27] MEDS: Lactated Ringers 1,000 ML 100 ML IVCONT (09:01)
[2025-02-27 10:15] VITALS: BP 107/62; PULSE 88; RESP 18; TEMP 36.4; O2SAT 95
--- NOTE | 2025-02-27 10:17 | P.OPN-COLO_ITS ---
Colonoscopy Operative Note Operative Note Date of Service: 02/27/25 Narrative: Procedure: Upper endoscopy and colonoscopy Indication: GERD, screening Endoscopist: Dary Summers MD Anesthesia Provider: Cecile Pineda CRNA Anesthesia type: MAC Instrument: [id number]-[id number] and [id number]-[id number] EGD Procedure:?? The procedure, indications, preparation and potential complications were reviewed with the patient, who indicated understanding and gave written informed consent to proceed. The endoscope was introduced through the mouth, and advanced to the 2nd part of the duodenum. The mucosa was carefully examined on slow withdrawal of the endoscope. The patient tolerated the procedure well. There were no immediate complications.? EGD Findings:? * Esophagus:? There was a pale-appearing 7 mm nodule in the esophagus at 32 cm. Cold forceps excisional biopsy was performed. The Z-line was at 38 cm. * Stomach:? Erythema and heme in the stomach body and antrum. Retroflexion was performed in the cardia. Cold forceps biopsies were taken from the stomach body and antrum. There was also a 4 mm polyp noted in the cardia. Cold forceps polypectomy was performed. * Duodenum:? Diffuse erythema, edema and erosions noted in the duodenal bulb and 1st portion of the duodenum. Remaining mucosa normal to the extent examined. Cold forceps biopsies were taken for histology. Colonoscopy Procedure:? The patient was then turned for the colonoscopy. A digital rectal exam was performed which was normal.? A distal attachment cap was affixed to the tip of the scope and the colonoscope was then inserted through the anus and advanced through the colon and advanced to the cecum at 80 cm.? Appendiceal orifice and ileocecal valve were identified. Mucosa was carefully examined under high definition white light as the instrument was slowly withdrawn in a retrograde panoramic fashion. Retroflexion was performed in rectum. The procedure was not difficult. The quality of the prep was BBPS: 2+2+2 = adequate Withdrawal time 12 minutes Limitations: No limitations Findings: Mucosa: Normal colon and terminal ileum mucosa. A previously placed tattoo and polypectomy scar was noted at hepatic flexure. Protruding lesions: * 1 sessile polyp size 4 mm noted in transverse colon. Cold snare polypectomy was performed. The polyp was completely removed and retrieved. * One sessile polyp of size 3 mm noted in sigmoid colon. Cold snare polypectomy was performed. The polyp was completely removed and retrieved. * Large internal hemorrhoids without stigmata of recent bleeding. Impression: 1. Esopohageal nodule (biopsy) 2. Gastric polyp (biopsy) 3. Gastritis (biopsy) 4. Duodenitis (biopsy) 5. Previous polypectomy and tattoo site hepatic flexure 6. Total of 2 polyps removed 7. Internal hemorrhoids Recommendations:?? * Follow-up path results * Avoid NSAIDs * Increase lansoprazole to twice a day. * H Pylori treatment if biopsies + * Repeat colonoscopy for CRC screening in 5-7 years depending on results.
[2025-02-27 10:30] VITALS: BP 125/65; PULSE 81; RESP 15; TEMP 36.6; O2SAT 99
== END 2025-02-27 10:58 | disposition home or self-care (01) ==
PROVIDERS: Nurse Practitioner; PCP Internal Medicine; Visit Provider Internal Medicine
PROC: (CPT 45385; principal; 2025-02-27 10:10)
DX: Z12.11 Encounter for screening for malignant neoplasm of colon (principal); D12.3 Benign neoplasm of transverse colon; K63.5 Polyp of colon; K64.8 Other hemorrhoids; K58.9 Irritable bowel syndrome, unspecified; K59.01 Slow transit constipation; R14.0 Abdominal distension (gaseous); R10.11 Right upper quadrant pain; K21.9 Gastro-esophageal reflux disease without esophagitis; K31.7 Polyp of stomach and duodenum; K29.70 Gastritis, unspecified, without bleeding; K22.89 Other specified disease of esophagus; K29.80 Duodenitis without bleeding; E78.00 Pure hypercholesterolemia, unspecified; E11.65 Type 2 diabetes mellitus with hyperglycemia; Z79.85 Long-term (current) use of injectable non-insulin antidiabetic drugs; Z79.899 Other long term (current) drug therapy; Z88.8 Allergy status to other drugs, medicaments and biological substances; F17.210 Nicotine dependence, cigarettes, uncomplicated
CPT/HCPCS: 45385; 43239; 81025; 82947; 88305; 88313; 88342; J2003; J2704

== ENCOUNTER → 2025-02-27 08:13 | Outpatient (BNV) | payer OTHER, SELFPAY | PROVIDERS: PCP Internal Medicine; Visit Provider Internal Medicine | DX: Z12.11 Encounter for screening for malignant neoplasm of colon (principal); D12.3 Benign neoplasm of transverse colon; D12.5 Benign neoplasm of sigmoid colon; K64.8 Other hemorrhoids; K22.81 Esophageal polyp; K29.70 Gastritis, unspecified, without bleeding; K31.7 Polyp of stomach and duodenum; K29.80 Duodenitis without bleeding | CPT/HCPCS: 43239; 45385 ==

== ENCOUNTER 2025-04-24 13:58 | Outpatient (AMB) | payer OTHER, SELFPAY ==
--- NOTE | 2025-04-24 14:11 | A.OFFPC_ITS ---
Vital Signs 04/24/25 14:12 Height 5 ft 3 in Weight 199 lb 8 oz BMI 35.3 BP 110/62 Blood Pressure Location Lt brachial Position Sitting Pulse 98 Pulse Source Pulse Oximeter Temp 98.1 F Temp Source Temporal Artery Scan Pulse Oximetry (%) 98 Oxygen Delivery Method Room Air Intake Visit Reasons: 3 mo f/un DM, tobacco abuse Tab Machine Operator Required: No Allergies simvastatin Allergy (Unknown, Verified 04/24/25 14:25) Unknown sitagliptin (Januvia) Allergy (Unknown, Verified 04/24/25 14:25) nausea, vomits, cramps verapamil Allergy (Unknown, Verified 04/24/25 14:25) shortness of breath pioglitazone Adverse Reaction (Intermediate, Verified 04/24/25 14:25) Abdominal Pain Medication List - Last Reconciled 04/24/25 by Philly Cabrera PA-C albuterol sulfate 90 mcg/actuation (Ventolin HFA) 2 puffs inhalation Q6H PRN aspirin 81 mg PO DAILY atorvastatin 10 mg PO DAILY baclofen 10 mg PO TID betamethasone, augmented 0.05 % 1 appl topical BID 7 days bisacodyl (Dulcolax (bisacodyl)) 10 mg (2 x 5 mg) PO BEDTIME blood sugar diagnostic (FreeStyle Lite Strips) As directed check the blood sugar once a day blood-glucose meter (FreeStyle Lite Meter kit) check sugars once per day brimonidine 0.2% 1 drp ophthalmic (eye) BID chlorhexidine gluconate 4% (Hibiclens) 1 appl topical .QOD 2 doses cyanocobalamin (vitamin B-12) 1,000 mcg PO DAILY hydrocortisone 2.5% (Proctosol HC) 1 appl CA BID-QID PRN lactulose 20 grams (30 mL) PO BID lancets (FreeStyle Lancets) As directed check blood sugar once a day lansoprazole 30 mg PO DAILY lidocaine 5% 2 patches topical DAILY linaclotide (Linzess) 145 mcg PO DAILY lisinopril 40 mg PO DAILY 30 days loratadine 10 mg PO DAILY magnesium citrate (Citrate of Magnesia oral) 150 mL PO DAILY PRN magnesium citrate 296 mL PO ONCE methylcellulose (laxative) (Citrucel) 1,000 mg (2 x 500 mg) PO DAILY ondansetron 4 mg PO Q8H PRN sucralfate 1 g PO BID sumatriptan succinate 50 mg PO .QD PRN tirzepatide 12.5 mg (0.5 mL) subcut QWEEK 30 days tramadol 50 mg PO TID PRN 30 days Tobacco use date assessed: 11/25/24 Dental Screening Dental Screen Date: 11/25/24 Did you have a dental visit in the last 12 months?: Yes Did you have a dental problem in the last 6 months where you did not have access to dental care?: No Was dental information given to patient?: Patient has dentist HPI 3 mo f/un DM, tobacco abuse HPI Details 50-year-old female with past medical his tory of diabetes mellitus, hypertension, hypercholesterolemia, asthma, GERD, migraines, tobacco abuse, depression last seen by Dr. Gibbons 11/2024 coming in for follow up. In review of the notes, patient underwent endoscopy with colonoscopy 02/27/2025 lansoprazole was increased to b.i.d. and plan for repeat colonoscopy in 5-7 years. Presenting for a follow-up visit for management of multiple chronic medical conditions. The patient reports ongoing acid reflux which is helped to some extent by lansoprazole. The patient states that lansoprazole is the only medication that works and other medications have been tried without success. A recent endoscopy and colonoscopy were performed, and biopsy results showed no H. pylori infection. For the last three to four months, the patient has experienced worsening symptoms in the arms and hands, which awaken the patient from sleep. The symptoms are bilateral but worse in the left arm, extending from the upper arm down, and are described as pain, burning, stinging, and numbness, with a sensation of swelling. The patient previously took gabapentin for a long time at high doses but stopped it due to ineffectiveness and side effects. [facility] Medical History High serum cortisol Colon cancer screening Hirsutism Morbid obesity Burning sensation of vulva Vulvar pain Hidradenitis suppurativa Acute bronchitis BRCA gene mutation negative Abdominal tenderness Acute vaginitis Smoking Fibromyalgia Pelvic pain in female At high risk for breast cancer GERD (gastroesophageal reflux disease) Migraine Asthma Vitamin B12 deficiency Vitamin D deficiency Anti-phospholipid syndrome PCOS (polycystic ovarian syndrome) Hypercholesterolemia Hypertension Type 2 diabetes mellitus with hyperglycemia Surgical History H/O oral surgery H/O colonoscopy H/O endoscopy Family History Mother Cervical cancer Maternal Aunt Breast cancer Cervical cancer Maternal Aunt Breast cancer Cervical cancer Maternal Aunt Cervical cancer Maternal Aunt Cervical cancer Social History Housing: Apartment Housing Other:: 2019 Are you a primary post anesthesia care unit nurse to a significant other at home: No Do you presently have visiting nurse or other home services: No Alcohol intake: never Patient Tobacco Use Status: Current everyday Tobacco user Tobacco use type: Cigarette Cigarette Packs Per Day: 1.5 Cigarettes Per Day: 30.0 e-Cigarette/Vaping Use: Never Used Second Hand Smoke Exposure: No service: No Current occupational status: employed 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 1. Little interest or pleasure in doing things: not at all 2. Feeling down, depressed, or hopeless: not at all 3. Trouble falling or staying asleep, or sleeping too much: not at all 4. Feeling tired or having little energy: not at all 5. Poor appetite or overeating: not at all 6. Feeling bad about yourself - or that you are a failure or have let yourself or your family down: not at all 7. Trouble concentrating on things, such as reading the newspaper or watching television: not at all 8. Moving or speaking so slowly that other people could have noticed. Or the opposite - being so fidgety or restless that you have been moving around a lot more than usual: not at all 9. Thoughts that you would be better off or of hurting yourself in some way: not at all Total score: 0 Source: Developed by Drs. Lex Claudio, Maday Greenfield, Aaron Baxter and colleagues, with an educational luz maria from [employer]. Thrive Questionnaire Date Thrive assessed: 11/25/24 I am a: Patient What is your living situation today?: I choose not to answer this question Within the past 12 months, did the food you bought not last and you didn't have the money to get more?: I choose not to answer this question Within the past 12 months, did you worry whether your food would run out before you got money to buy more?: I choose not to answer this question Do you have trouble paying for medicines?: No Do you have trouble getting transportation to medical appointments?: No Do you have trouble paying your heating and electricity bill?: No Do you have trouble taking care of your child, family member or friend?: I choose not to answer this question Do you have trouble with day-to-day activities such as bathing, preparing meals, shopping, managing finances, etc.?: I choose not to answer this question Are you currently unemployed and looking for a job?: I choose not to answer this question Are you interested in more education?: I choose not to answer this question Please select the resources that you would like help with: None Currently or been in a relationship where the following occur: I choose not to answer THRIVE Score: 0 AUDIT C Alcohol Use Questionnaire (AUDIT-C) 1. How often do you have a drink containing alcohol?: Never 3. How often do you have six or more drinks on one occasion?: Never Total Score: 0 LUCY-7 AMB Questionnaire LUCY-7 Date LUCY - 7 assessed: 08/13/24 Feeling nervous, anxious, or on edge: 0 = Not at all Not being able to stop or control worryin = Not at all Worrying too much about different things: 0 = Not at all Trouble relaxin = Not at all Being so restless that it is hard to sit still: 0 = Not at all Becoming easily annoyed or irritable: 0 = Not at all Feeling afraid as if something awful might happen: 0 = Not at all Total LUCY-7 score (0-4 normal; 5-9 mild; 10-14 moderate; 15-21 severe): 0 Source: Developed by Drs. Lex Claudio, Maday Greenfield, Aaron Baxter and colleagues, with an educational luz maria from [employer]. Review of Systems Const Denies body aches, Denies chills, Denies fever(s) and Denies poor appetite Eyes Reports no additional complaints ENT Denies dizziness Card Denies chest pain, Denies edema, Denies lightheadedness and Denies dyspnea Resp Denies cough and Denies dyspnea GI Denies abdominal pain, Denies constipation, Denies diarrhea, Denies nausea and Denies vomiting Reports no additional complaints Musc Reports no additional complaints and Denies abnormal gait Skin/Breast Reports system reviewed and no additional complaints, except as documented Neuro Denies abnormal gait and Denies dizziness Psych Reports no additional complaints Physical exam (Primary Care) Vital Signs: Last Vital Signs Temp 98.1 F 04/24/25 14:12 Pulse 98 04/24/25 14:12 BP 110/62 04/24/25 14:12 Pulse Ox 98 04/24/25 14:12 Oxygen Delivery Method Room Air 04/24/25 14:12 BMI result Body Mass Index 35.3 Tobacco/Smoking Status: Tobacco use Status Tobacco use date assessed 11/25/24 04/24/25 14:18 Patient Tobacco Use Status Current everyday Tobacco 04/24/25 14:18 Tobacco use type Cigarette 04/24/25 14:18 e-Cigarette/Vaping Use Never Used 04/24/25 14:18 PHQ-9: PHQ-9 Score PHQ-9: Total score 0 04/24/25 14:19 Thrive Assessment: Date of Thrive Assessment Date Thrive assessed 11/25/24 04/24/25 14:18 Currently or been in a relationship where the following occur: I choose not to answer Const General: cooperative, healthy appearing, comfortable and no acute distress Orientation/consciousness: patient oriented x3 HENMT Head: Yes normocephalic Ears: hearing grossly normal bilaterally General nose exam: Normal external nose present Eyes General: appearance normal, both eyes and all related structures Conjunctivae: conjunctivae normal Neck Neck: Yes full ROM and Yes no lymphadenopathy Resp Effort & Inspection: normal respiratory effort Auscultation: clear to auscultation bilaterally, no crackles, no rales, no rhonchi and no wheezes Cardio Rate: regular rate Rhythm: regular rhythm Skin General skin exam: no rashes or lesions noted Neuro General: patient oriented x3 Gait exam (Neuro): Normal gait present Extrem General: Yes normal to inspection, Yes full ROM and No edema Psych Affect: normal affect Attitude: cooperative Insight: Good insight present (Psych) Judgement: Good judgement present (Psych) Coding Level of Care Code Est Pt Level 4 (97943) Diagnoses Moderate episode of recurrent major depressive disorder F33.1 Active/Remission status: currently active Major depression episode severity: moderate Primary hypertension I10 Hypertension type: primary hypertension Hypercholesterolemia E78.00 Type 2 diabetes mellitus with hyperglycemia, without long-term current use of insulin E11.65 Diabetes mellitus intermediate card tender insulin use: without assisted use Class 2 severe obesity due to excess calories with serious comorbidity and body mass index (BMI) of 39.0 to 39.9 in adult E66.812; E66.01; Z68.39 Body mass index: BMI 39.0-39.9 Obesity classification: adult class 2 (BMI 35 - 39.9) Obesity type: due to excess calories Serious obesity comorbidity presence: with serious comorbidity Gastroesophageal reflux disease, unspecified whether esophagitis present K21.9 Esophagitis presence: esophagitis presence not specified Asthma J45.909 Tobacco abuse Z72.0 Numbness and tingling in both hands R20.0; R20.2 Assessment & Plan Assessment & Plan (1) Recurrent major depression: Comment: Decline counseling July 2021 Code(s): F33.9 - Major depressive disorder, recurrent, unspecified Category: Medical Qualifiers: Active/Remission status: currently active Major depression episode severity: moderate Qualified Code(s): F33.1 - Major depressive disorder, recurrent, moderate Plan: Feels okay at this time and declining counselor. (2) Hypertension: Code(s): I10 - Essential (primary) hypertension Category: Medical Qualifiers: Hypertension type: primary hypertension Qualified Code(s): I10 - Essential (primary) hypertension Plan: Continue on current blood pressure medication. Avoid salt intake and encourage healthy diet and regular exercise. (3) Hypercholesterolemia: Code(s): E78.00 - Pure hypercholesterolemia, unspecified Category: Medical Plan: Avoid foods that are high in cholesterol such as red meat, fried foods, eggs and baked goods. Triglyceride goal of less than 150 and LDL goal of less than 100. Ordered for repeat blood work. (4) Type 2 diabetes mellitus with hyperglycemia: Code(s): E11.65 - Type 2 diabetes mellitus with hyperglycemia Category: Medical Qualifiers: Diabetes mellitus assisted insulin use: without intermediate card tender use Qualified Code(s): E11.65 - Type 2 diabetes mellitus with hyperglycemia Plan: Decrease the amount of carbohydrates such as pasta, bread, rice, and potatoes and limit the amount of sweets. Although fruits are generally healthy they should be eaten in moderation as they are still high in sugar. Hemoglobin A1c goal of less than 7%. A1c in the clinic today 5.2% plan to continue on Mounjaro at this time. (5) Obesity: Code(s): E66.9 - Obesity, unspecified Category: Medical Qualifiers: Body mass index: BMI 39.0-39.9 Obesity classification: adult class 2 (BMI 35 - 39.9) Obesity type: due to excess calories Serious obesity comorbidity presence: with serious comorbidity Qualified Code(s): E66.812 - Obesity, class 2; E66.01 - Morbid (severe) obesity due to excess calories; Z68. 39 - Body mass index [BMI] 39.0-39.9, adult Plan: Healthy diet and regular exercise is encouraged. (6) GERD (gastroesophageal reflux disease): Code(s): K21.9 - Gastro-esophageal reflux disease without esophagitis Category: Medical Qualifiers: Esophagitis presence: esophagitis presence not specified Qualified Code(s): K21.9 - Gastro-esophageal reflux disease without esophagitis Plan: Avoid trigger foods such as citrus, tomato products, soda, caffeine, spicy foods and other foods that may be irritating to your stomach. Avoid laying flat 3-4 hours after eating and elevate the head of the bed 30 degrees to prevent acid from moving into the esophagus. Continue to follow with GI. (7) Asthma: Code(s): J45.909 - Unspecified asthma, uncomplicated Category: Medical Plan: Asthma currently controlled on present medications. Continue on albuterol.? Avoid triggers such as allergies. (8) Tobacco abuse: Code(s): Z72.0 - Tobacco use Category: Medical Plan: Smoking cigarettes and the use of tobacco can be harmful. We discussed the importance of stopping and options to aid in smoking cessation. (9) Numbness and tingling in both hands: Code(s): R20.0 - Anesthesia of skin; R20.2 - Paresthesia of skin Category: Medical Plan: The patient's symptoms of pain, burning, stinging, and numbness in both hands and arms, which awaken the patient from sleep, are suggestive of a nerve issue such as carpal or cubital tunnel syndrome. A nerve conduction study will be ordered for both arms to determine the origin of the symptoms. A prescription for bilateral wrist splints has been sent to a medical supply store for the patient to wear at night. The patient declined a trial of gabapentin due to a prior history of side effects and lack of efficacy. Plan This note was constructed using voice recognition software. While every effort has been made to ensure accuracy and crochet machine operator, still areas may have been included sometimes these areas may affect the content or meeting of the given symptoms. Total time spent caring for the patient today was 20 minutes. This includes time spent before the visit reviewing the chart, time spent during the visit, and time spent after the visit and documentation. Patient was informed and verbally consented to the use of an ambient scribe for clinic note documentation during this visit. Orders: Orders Vitamin D 25-OH Total Today Z13.21 - Encounter for screening for nutritional disorder Comprehensive Met. Panel Today Z00.00 - Encounter for general adult medical examination without abnormal findings Complete Blood Count Auto Diff Today Z13.0 - Encounter for screening for diseases of the blood and blood-forming organs and certain disorders involving the immune mechanism Lipid Panel Today E78.00 - Pure hypercholesterolemia, unspecified Hemoglobin A1c 3 Months E11.65 - Type 2 diabetes mellitus with hyperglycemia NE electromyogram (EMG) Today R20.0 - Anesthesia of skin, R20.2 - Paresthesia of skin TSH reflex Free T4 Today Z13.29 - Encounter for screening for other suspected endocrine disorder Vitamin B12 and Folate Today Z13.21 - Encounter for screening for nutritional disorder NE nerve conduction velocity Today R20.0 - Anesthesia of skin, R20.2 - Paresthesia of skin Medications: New [left wrist splint] As directed for nighttime use 1 ea 0RF R20.0 - Anesthesia of skin, R20.2 - Paresthesia of skin mupirocin 2% (Centany) 1 appl topical BID 15 grams 0RF [right wrist splint] As directed at bedtime 1 ea 0RF R20.0 - Anesthesia of skin, R20.2 - Paresthesia of skin Refilled baclofen 10 mg PO TID 60 tabs 0RF M54.50 - Low back pain, unspecified
[2025-04-24 14:12] VITALS: BP 110/62; PULSE 98; TEMP 36.7; O2SAT 98; BMI 35.3
--- OUTSIDE RECORDS SUMMARY | 2025-04-24 19:24 | XMS_ITS | Patient Health Record ---
Author Organization [facility] Address [address] [place] [address] Care Team Providers Care Assembly Machine Offbearer Name Role Phone Po Marely HAY Primary Care Provider Chato Hernandez Jr [phone] Reason For Referral No Information Medications Medication SIG (Take, Route, Frequency, Duration) Notes Start Date End Date Status Dicyclomine HCl 10 Capsule TAKE 1 CAPSUL E BY MOUTH THREE TIMES DAILY; Duration: 30 Active Aspir-81 81 MG Tablet Delayed Release 1 tablet Orally Once a day Active Nabumetone 500 MG Tablet 1 tablet Orally Twice a day Active Omeprazole 20 MG Capsule Delayed Release 1 capsule Orally Once a day Active Dicyclomine HCl 10 MG Capsule 1 capsule Orally 3 times daily Active Gabapentin 600 MG Tablet 1 tablet Orally once a day Active Dicyclomine HCl 20 MG Tablet 1 tablet Orally 2-4 times a day 02/05/2015 Active Ondansetron HCl 8 MG Tablet 1 tablet Ora lly Once a day Active Fioricet 50-300-40 MG Capsule 1 capsule as needed Orally every 4 hrs Active Vitamin D 400 UNIT Tablet Orally Active Jolivette 0.35 MG Tablet 1 tablet Orally Once a day Active metFORMIN HCl 500 MG Tablet 1 tablet wit h meals Orally Twice a day Active Lisinopril 40 MG Tablet 1 tablet Orally Once a day Active traMADol HCl 50 MG Tablet 1 tablet as ne eded Orally every 6 hrs Active amLODIPine Besylate 10 MG Tablet 1 tablet Orally Once a day Active Social History Social History Additional Details Category Social Info Options Details Miscellaneous: Marital status: Occupation: unemployed Plan Of Treatment No Information Insurance Providers Payer Name Payer Address Payer Phone Subscriber Number Group Number Insured Name Patient Relationship to Insured Coverage Start Date Coverage End Date [employer] [address] [place] [address] [id number] THOMAS MAN Self - patient is the insured MEDICAID OF [employer] [address] [place] [address] [id number] THOMAS MAN Self - patient is the insured Medical (General) History Medical History History ICD Code diabetes mellitus asthma hypertension Denies [place],CVA,renal disease
== END 2025-04-24 14:48 | disposition home or self-care (01) ==
LOC: HO.HMCH 13:59
PROVIDERS: PCP Internal Medicine
DX: E11.65 Type 2 diabetes mellitus with hyperglycemia (principal); F33.1 Major depressive disorder, recurrent, moderate; E66.01 Morbid (severe) obesity due to excess calories; Z68.39 Body mass index [BMI] 39.0-39.9, adult; I10 Essential (primary) hypertension; E78.00 Pure hypercholesterolemia, unspecified; E66.812 Obesity, class 2; K21.9 Gastro-esophageal reflux disease without esophagitis; J45.909 Unspecified asthma, uncomplicated; Z72.0 Tobacco use; R20.0 Anesthesia of skin; R20.2 Paresthesia of skin

== ENCOUNTER → 2025-04-24 13:58 | Outpatient (BNVA) | payer OTHER, SELFPAY | PROVIDERS: PCP Internal Medicine | DX: F33.1 Major depressive disorder, recurrent, moderate (principal); I10 Essential (primary) hypertension; E78.00 Pure hypercholesterolemia, unspecified; E11.65 Type 2 diabetes mellitus with hyperglycemia; E66.812 Obesity, class 2; E66.01 Morbid (severe) obesity due to excess calories; K21.9 Gastro-esophageal reflux disease without esophagitis; J45.909 Unspecified asthma, uncomplicated; R20.0 Anesthesia of skin; R20.2 Paresthesia of skin; F17.210 Nicotine dependence, cigarettes, uncomplicated | CPT/HCPCS: 99212 ==